=== PATIENT | female | born 1955 | race Caucasian/White ===

== ENCOUNTER → 2020-04-27 18:01 | Outpatient (CLI) | payer OTHER, SELFPAY ==
--- NOTE | ~2020-04-27 | MM_ITS ---
EXAMINATION: MM screening april BI w rosi HISTORY: Screening mammogram TECHNIQUE: Craniocaudal and mediolateral oblique 3-D tomosynthesis images were obtained and synthetic 2-D images were generated. CAD analysis was submitted and interpreted. COMPARISON: 03/16/2019, 02/01/2018 and 12/26/2016 bilateral digital screening mammogram examinations BREAST PARENCHYMAL COMPOSITION: The breasts are heterogeneously dense, which may obscure small masses . FINDINGS: Possible developing densities in the lower right breast on MLO view. Diagnostic right mammo gram is recommended, with ultrasound if required. Otherwise there is no evidence of suspicious mass, calcification, or architectural distortion to sug gest malignancy in either breast. There has been no other suspicious interval change. IMPRESSION: 1. Possible developing densities in the lower right breast on MLO view 2. Diagnostic right mammogram is recommended, with ultrasound if required BI-RADS Category 0: Incomplete: Needs additional imaging evaluation. Reviewed, dictated and finalized at location A. EKEEPING WORKER
== END ==
PROVIDERS: PCP Internal Medicine Infectious Disease; Visit Provider Internal Medicine Infectious Disease
DX: Z12.31 Encounter for screening mammogram for malignant neoplasm of breast (principal); R92.8 Other abnormal and inconclusive findings on diagnostic imaging of breast
CPT/HCPCS: 77063; 77067

== ENCOUNTER 2021-11-28 08:57 | Outpatient (CLI) | payer MEDICARE, OTHER, SELFPAY ==
--- NOTE | 2021-11-28 | EST_ITS ---
Patient Info Name: Wendy Lew Age: 66 years : 1955 Gender: Female Ht: 61 in Wt: 131 lbs BSA: 1.61 m2 HR: 149 bpm BP: 174 / 91 mmHg Technical Quality: Good Exam Date: 11/28/2021 9:54 AM Exam Location: [facility] Pulmonary Exam Room: STRESS LAB Patient Status: Outpatient Admit Date: 11/28/2021 Staff Ordering Physician: EmiAamir MD Ice Plant Operator: Nettie Walsh RDCS Attending Provider: MarryAamir MD Exercise Technologist: Kallie Dai CT Nurse: STEPHANIE BARRAZA Exam Type: CA stress echo Study Info Treadmill exercise stress echocardiogram is performed. Summary 1. Normal sinus rhythm - normal ECG. 2. Small nondiagnostic Q-waves are present. 3. No abnormal ST/T wave changes with exercise. 4. Resting left ventricular dimension and systolic contractility are normal. 5. All segments become appropriately hyperdynamic and response to exercise no ischemic wall motion abnormalities seen. Protocol: Bull Stress ECG Details Stage: REST Duration (min): 0 min : 56 sec Speed (mph): 0.0 Grade (%): 0 HR (bpm): 73 SBP (mmHg): 111 DBP (mmHg): 79 METS: --- Stage: REST Duration (min): 28 min : 3 sec Speed (mph): 0.0 Grade (%): 0 HR (bpm): 77 SBP (mmHg): 111 DBP (mmHg): 79 METS: --- Stage: STAGE 1 Duration (min): 1 min : 0 sec Speed (mph): 1.7 Grade (%): 10 HR (bpm): 108 SBP (mmHg): 111 DBP (mmHg): 79 METS: --- Stage: STAGE 1 Duration (min): 2 min : 0 sec Speed (mph): 1.7 Grade (%): 10 HR (bpm): 108 SBP (mmHg): 111 DBP (mmHg): 79 METS: --- Stage: STAGE 1 Duration (min): 3 min : 0 sec Speed (mph): 1.7 Grade (%): 10 HR (bpm): 110 SBP (mmHg): 136 DBP (mmHg): 88 METS: --- Stage: STAGE 2 Duration (min): 1 min : 0 sec Speed (mph): 2.5 Grade (%): 12 HR (bpm): 117 SBP (mmHg): 136 DBP (mmHg): 88 METS: --- Stage: STAGE 2 Duration (min): 2 min : 0 sec Speed (mph): 2.5 Grade (%): 12 HR (bpm): 119 SBP (mmHg): 171 DBP (mmHg): 85 METS: --- Stage: STAGE 2 Duration (min): 3 min : 0 sec Speed (mph): 2.5 Grade (%): 12 HR (bpm): 129 SBP (mmHg): 171 DBP (mmHg): 85 METS: --- Stage: STAGE 3 Duration (min): 1 min : 0 sec Speed (mph): 3.4 Grade (%): 14 HR (bpm): 133 SBP (mmHg): 237 DBP (mmHg): 85 METS: --- Stage: STAGE 3 Duration (min): 2 min : 0 sec Speed (mph): 3.4 Grade (%): 14 HR (bpm): 136 SBP (mmHg): 174 DBP (mmHg): 91 METS: --- Stage: STAGE 3 Duration (min): 3 min : 0 sec Speed (mph): 3.4 Grade (%): 14 HR (bpm): 136 SBP (mmHg): 172 DBP (mmHg): 94 METS: --- Stage: STAGE 4 Duration (min): 1 min : 0 sec Speed (mph): 4.2 Grade (%): 16 HR (bpm): 147 SBP (mmHg): 172 DBP (mmHg): 94 METS: ---
== END 2021-11-28 08:58 | disposition home or self-care (01) ==
LOC: ANHCARD 09:00
PROVIDERS: PCP Internal Medicine Infectious Disease; Visit Provider Internal Medicine Infectious Disease
DX: R94.31 Abnormal electrocardiogram [ECG] [EKG] (principal)
CPT/HCPCS: 93351

== ENCOUNTER 2022-02-13 14:42 | Outpatient (CLI) | payer MEDICARE, SELFPAY ==
--- NOTE | ~2022-02-13 | DEXA_ITS ---
Bone Density Report Name: ROSARIO ROSADO Age: 66 Sex: Female Ethnicity: White Date of : 1955 Indication: postmenopausal; screening for osteoporosis; cancer; hysterectomy; Referring Provider: CRISELDA, LEIGH Arnold Study: Bone densitometry was performed. Exam Date: February 13, 2022 Accession number: [id number] Bone Density: Region BMD T-score Z-score Classification AP Spine(L1-L4) 0.885 -1.5 0.3 Osteopenia Femoral Neck (Left) 0.736 -1.0 0.5 Normal Total Hip (Left) 0.850 -0.8 0.5 Normal Femoral Neck (Right) 0.752 -0.9 0.7 Normal Total Hip (Right) 0.881 -0.5 0.7 Normal Total Hip Mean 0.865 -0.7 0.6 Normal World Health Organization criteria for BMD impression classify patients as: Normal (T-score at or above -1.0), Osteopenia (T-score between -1.0 and -2.5), or Osteoporosis (T-score at or below -2.5). 10-year Fracture Risk(1): Major Osteoporotic Fracture 8.2% Hip Fracture 0.6% Reported Risk Factors: [place] (), Neck BMD=0.736, BMI=24.9 (1) FRAX(R) Version 3.08. Fracture probability calculated for an untreated patient. Fracture probability may be lower if the patient has received treatment. Clinical Information Provided by Patient: Has used the following medications: Calcium Has the following medical conditions: Cancer, Hysterectomy Patient maximum height was 61 Menopause Age: 51 Drinks caffeinated beverages Onset of menses at age 17 Number of children 2 Impression: The patient has low bone mass, based on the Total Spine T-score. The patient has an estimated ten-year risk of hip fracture of 0.6% and an estimated ten-year risk of major fracture of 8.2%, based on the WHO FRAX algorithm. Discussion: BONE DENSITY IS LOW AT ONE OR MORE SKELETAL SITES. This patient's lowest T-score is low at one or more skeletal sites. It meets the World Health Organization's (WHO) criteria for ?low bone mass? (T-score between -1.0 and -2.5). The patient's 10-year risk of fracture as calculated by FRAX is less than the threshold where pharmacological therapy is recommended by the National Osteoporosis Foundation (NOF). However, all treatment decisions require clinical judgment and consideration of individual patient factors, including patient preferences, comorbidities, previous drug use, risk factors not captured in the FRAX model (e.g., frailty, falls, vitamin D deficiency, increased bone turnover, interval significant decline in bone density) and possible under or overestimation of fracture risk by FRAX. The patient should follow a healthful lifestyle (good nutrition with adequate calcium and vitamin D, and appropriate weight-bearing exercise). Follow-Up: Consider repeating this study in 2 to 3 years to reassess this patient's status, or sooner if there is some new clinical i
== END 2022-02-13 14:43 | disposition home or self-care (01) ==
PROVIDERS: PCP Internal Medicine Infectious Disease; Visit Provider Internal Medicine Infectious Disease
DX: Z78.0 Asymptomatic menopausal state (principal); M85.88 Other specified disorders of bone density and structure, other site
CPT/HCPCS: 77080

== ENCOUNTER 2024-08-15 13:50 | Outpatient (CLI) | payer MEDICARE, SELFPAY ==
--- NOTE | ~2024-08-15 | DEXA_ITS ---
Bone Density Report Name: ROSARIO ROSADO Age: 69 Sex: Female Ethnicity: White Date of : 1955 Indication: osteopenia; cancer; hysterectomy; Referring Provider: CRISELDA, LEIGH Arnold Study: Bone densitometry was performed. Exam Date: August 15, 2024 Accession number: [id number] Bone Density: Region BMD T-score Z-score Classification AP Spine(L1-L4) 0.888 -1.4 0.5 Osteopenia Femoral Neck (Left) 0.739 -1.0 0.7 Normal Total Hip (Left) 0.823 -1.0 0.4 Normal Femoral Neck (Right) 0.727 -1.1 0.6 Osteopenia Total Hip (Right) 0.872 -0.6 0.8 Normal Total Hip Mean 0.848 -0.8 0.6 Normal World Health Organization criteria for BMD impression classify patients as: Normal (T-score at or above -1.0), Osteopenia (T-score between -1.0 and -2.5), or Osteoporosis (T-score at or below -2.5). 10-year Fracture Risk(1): Major Osteoporotic Fracture 8.8% Hip Fracture 0.8% Reported Risk Factors: [place] (), Neck BMD=0.727, BMI=26.4 (1) FRAX(R) Version 3.08. Fracture probability calculated for an untreated patient. Fracture probability may be lower if the patient has received treatment. Previous Exams: Region Exam Age BMD T-score BMD Change BMD Change Date g/cm2 vs Baseline vs Previous AP Spine (L1-L4) 08/15/2024 69 0.888 -1.4 0.002 (0.3%) 0.002 (0.3%) 02/13/2022 66 0.885 -1.5 Total Hip(Left) 08/15/2024 69 0.823 -1.0 -0.027 (-3.2%) -0.027 (-3.2%) 02/13/2022 66 0.850 -0.8 Total Hip(Right) 08/15/2024 69 0.872 -0.6 -0.008 (-0.9%) -0.008 (-0.9%) 02/13/2022 66 0.881 -0.5 *Denotes significance at 95% confidence level, LSC for AP Spine = 0.022 g/cm2, LSC for Total Hip = 0.027 g/cm2 Clinical Information Provided by Patient: Has used the following medications: Calcium Has the following medical conditions: Cancer, Hysterectomy Patient maximum height was 61.0 Menopause Age: 51 Drinks caffeinated beverages Onset of menses at age 17 Number of children 2 Impression: The patient has low bone mass, based on the Total Spine T-score. The patient has an estimated ten-year risk of hip fracture of 0.8% and an estimated ten-year risk of major fracture of 8.8%, based on the WHO FRAX algorithm. No significant bone loss was observed. Discussion: BONE DENSITY IS LOW AT ONE OR MORE SKELETAL SITES. This patient's lowest T-score is low at one or more skeletal sites. It meets the World Health Organization's (WHO) criteria for ?low bone mass? (T-score between -1.0 and -2.5). The patient's 10-year risk of fracture as calculated by FRAX is less than the threshold where pharmacological therapy is recommended by the National Osteoporosis Foundation (NOF). However, all treatment decisions require clinical judgment and consideration of individual patient factors, including patient preferences, comorbidities, previous drug use, risk factors not captured in the FRAX model (e.g., frailty, falls, vitamin D deficiency, increased bone turnover, interval significant decline in bone density) and possible under or overestimation of fracture risk by FRAX. The patient should follow a healthful lifestyle (good nutrition with adequate calcium and vitamin D, and appropriate weight-bearing exercise). Follow-Up: Consider repeating this study in 2 to 3 years to reassess this patient's status, or sooner if there is some new clinical indication. Reported by: KEVIN on 08/15/2024 2:27:00 PM. Reviewed, dictated and finalized at location A. FATMATA
--- OUTSIDE RECORDS SUMMARY | 2024-08-15 16:01 | XMS_ITS | Encounter Summary ---
Author Organization [facility] Address [address] [place] [address] Phone Care Team Providers Care Informatics Consultant Name Role Phone Aamir Middleton MD Primary Care Provider [phone] Hilda Almonte MD Unavailable [phone] Cornelio Alfaro MD Unavailable [phone] Issa Valencia MD Unavailable [phone] Rod Pablo MD Unavailable Laron Casey MD Unavailable Landry Conklin MD Unavailable [phone] Mamta Rondon MD Unavailable [phone] Lizeth Hampton MD Unavailable [phone] Encounter Details Date Type Department Care Team (Late st Contact Info) Description 04/27/2020 Orders Only [facility] [address] [place] [address] Scanning, Provider Social History Tobacco Use Types Packs/Day Years Used Date Smoking Tobacco: Former Cigarettes 0.1 15 1 969 - 1983 Smokeless Tobacco: Never Alcohol Use Standard Drinks/Week Comments Yes 0 (1 standard drink = 0.6 oz pur e alcohol) daily 1 shot PHQ-2 Answer Date Recorded PHQ-2 Total Score (If total score is 3 or more points, staff should administer the PHQ-9) 0 10/28/2019 Comments No Sex and Gender Information Value Date Recorded Sex Assigned at Not on file Legal Sex Female 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 Gender Identity Not on file Sexual Orientation Not on file 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 fi le documented as of this encounter Plan of Treatment Not on file documented as of this encounter Procedures Procedure Name Priority Date/Time Associated Diagnosis Comments SCAN - RADIOLOGY/IMAGING 04/27/2020 documented in this encounter Results * SCAN - RADIOLOGY/IMAGING (04/27/2020) Anatomical Region Laterality Modality Other us Provider Scanning Final Result documented in this encounter Visit Diagnoses Not on filedocumented in this encounter Additional Health Concerns Infection Onset Date Last Indicated Resolved Time COVID: Suspected 10/02/2022 10/02/2022 10/03/2022 3:05 AM CDT documented as of this encounter Care Teams Informatics Consultant Relationship Specialty Start Date End Date Aamir Middleton MD [address] [place] [phone] PCP - General 09/05/16 Hilda Almonte MD [address], [place] [address] Consulting Physician Obstetrics and Gynecology 01/06/13 Cornelio Alfaro MD [address], [place] [address] Consulting Physician Urology 01/28/20 08/24/23 Issa Valencia MD [address], [place] [address] Consulting Physician Urology 04/09/20 Rod Pablo MD [address] [place] [address] Consulting Physician Gastroenterology 05/21/20 Laron Casey MD [address] [place] [address] Consulting Physician Sleep Medicine 12/06/20 Landry Conklin MD [address] [facility] [address] [place] [address] Consulting Physician Ophthalmology 10/30/21 Mamta Rondon MD [address] [place] [address] Consulting Physician Dermatology 02/12/23 Lizeth Hampton MD [address] [facility] [place] [address] Consulting Physician Urology 05/22/23 documented as of this encounter
--- OUTSIDE RECORDS SUMMARY | 2024-08-15 16:01 | XMS_ITS | Patient Health Summary ---
Author Organization [facility] Address [address] [facility] [place] [address] Care Team Providers Care Magnetic Resonance Imaging Coordinator Name Role Phone Aamir Middleton MD Primary Care Provider [phone] Note from [facility],non-owned Affiliates and Associated Physician Practices is amultiple site organization consisting of ambulatory clinics and hospital sitesin [place], [place], [place] and [place]. This disclosure is being madepursuant to the Care Everywhere program and may not contain all information available regarding this patient. Last updated 18.[facility] Allergies * Penicillin G(Rash) -Medium Criticality Medications * Be aware that medications may not be up to date on this document. Alwaysverify current medications with the patient. * buPROPion (WELLBUTRIN) 75 MG tablet(Started 12/07/2017) * citalopram (CELEXA) 10 MG tablet(Started 12/07/2017) * ENGERIX-B 20 MCG/ML injection(Started 11/11/2017) ADM 1ML IM UTD * SYNTHROID 88 MCG tablet(Started 12/07/2017) * metFORMIN (GLUCOPHAGE) 500 MG tablet(Started 12/02/2017) Take 500 mg by mouth * metFORMIN (GLUCOPHAGE) 1000 MG tablet(Started 11/24/2017) Take 1,000 mg by mouth * omeprazole (PRILOSEC) 20 MG capsule(Started 12/07/2017) * rosuvastatin (CRESTOR) 10 MG tablet(Started 11/15/2017) * SUMAtriptan (IMITREX) 100 MG tablet(Started 01/02/2018) * lifitegrast (XIIDRA) 5 % opthalmic solution(Started 07/30/2017) 1 drop Active Problems Problem Noted Date Diagnosed Date Sensorineural hearing loss (SNHL) of left ear Dysfunction of left eustachian tube 01/25/2018 Actinic keratosis 07/27/2015 Inflamed seborrheic keratosis 07/27/2015 Skin benign neoplasm 07/27/2015 Gastroesophageal reflux disease with esophagitis 06/27/2015 Bernstein's esophagus without dysplasia 06/15/2015 Iron deficiency anemia 09/20/2014 Urinary retention 12/21/2012 Hypersomnolence 10/06/2012 Migraine without aura or status migrainosus 05/08 Psoriasis 05/02/2012 Mixed hyperlipidemia 04/26/2012 Type 2 diabetes mellitus without complication Atypical migraine 03/22/2010 Anaclitic depression 02/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 Anxiety 02/13/2010 Disease of thyroid gland 02/13/2010 Acquired hypothyroidism 01/07/2008 Persistent mood disorder 01/15/1995 Chronic sinusitis 01/15/1994 History of splenectomy 01/07/1984 Immunizations * HEP A VACCINE, ADULT(Given 06/08/2002, 12/06/2001) * HEP B VACCINE, PED/ADOL(Given 06/08/1979) * INFLUENZA VACCINE(Given 03/23/2017) * MENINGOCOCAL MENINGITIS(Given 12/17/2010) * MENINGOCOCCAL CONJUGATE (MCV4P)(Given 02/27/2011) * PNEUMOCOCCAL PPSV23(Given 12/17/2010, 08/07/2000) * Pneumococcal Pcv13 Conj(Given 04/12/2015) * TD VACCINE(Given 12/13/2001) * TDAP (7yrs+)(Given 01/28/2012) * ZOSTER VACCINE, LIVE(Given 06/08/2008) Social History Tobacco Use Types Packs/Day Years Used Date Smoking Tobacco: Never Smokeless Tobacco: Never Alcohol Use Standard Drinks/Week Comments Yes 0 (1 standard drink = 0.6 oz pur e alcohol) Sex and Gender Information Value Date Recorded Sex Assigned at Not on file Gender Identity Not on file Sexual Orientation Not on file Last Filed Vital Signs Vital Sign Reading Time Taken Comments Blood Pressure 122/82 01/24/2019 1:54 PM CDT Pulse 78 01/24/2019 1:54 PM CDT Temperature - - Respiratory Rate - - Oxygen Saturation - - Inhaled Oxygen Concentration - - Weight 65.8 kg (145 lb) 01/24/2019 1:54 PM CDT Height 154.9 cm (5' 1 ) 01/24/2019 1:54 PM CDT Body Mass Index 27.4 01/24/2019 1:54 PM CDT Procedures * DERMATOPATHOLOGY(Performed 10/20/2023) * DERMATOPATHOLOGY(Performed 09/06/2020) * DERMATOPATHOLOGY(Performed 10/21/2018) Results * DERMATOPATHOLOGY (10/20/2023 1:39 PM CDT) Only the most recent of3 resultswithin the time period is included. Case Report Dermatopathology Report Case: [id number] Authorizing Provider: Mamta Rondon MD Collected: 10/20/2023 01:39 PM Ordering Location: [facility] - Received: 10/21/2023 12:48 PM DermPath Lab Pathologist: Radha Valencia MD Specimen: Skin, left upper arm 11:39 AM CDT DERMATOPATHOLOGY LABORATORY Final Diagnosis Specimen A. SKIN, left upper arm: LICHEN PLANUS-LIKE KERATOSIS (BENIGN LICHENOID KERATOSIS) (L82.1) 11:39 AM CDT DERMATOPATHOLOGY LABORATORY Clinical History R/o NMSC 11:39 AM CDT DERMATOPATHOLOGY LABORATORY Gross Description Specimen A: Received is one formalin filled container labeled with the patient's name and designated left upper arm. The specimen consists of a shave biopsy measuring 9x6x1 mm. Jar 0. 11:39 AM CDT DERMATOPATHOLOGY LABORATORY Microscopic Description Specimen A. SKIN, left upper arm: The epidermis is mildly acanthotic. There is a lichenoid infiltrate with vacuolar changes of basilar keratinocytes and scattered necrotic keratinocytes. 11:39 AM CDT DERMATOPATHOLOGY LABORATORY Disclaimer An external and internal positive and negative controls are appropriate for the histochemical, immunohistochemical and immunofluorescence stain(s) in this case (if any), except where stated explicitly. The performance characteristics of the stain(s) cited in this report were developed and its performance characteristic determined by the Dermatopathology Laboratory at [facility], directed by Dr. Ramila Ramos. These tests need not be, and therefore are not, approved by the [place] Food and Drug Administration. The tests are used for clinical purposes. Billing Codes Specimen Charges Stain Charges 75718 1 4 11:39 AM CDT DERMATOPATHOLOGY LABORATORY Embedded Images 11:39 AM CDT DERMATOPATHOLOGY LABORATORY Pathology/Cytolo gy TISSUE SPECIMEN FROM SKIN / Unknown 10/20/2023 1:39 PM CDT 10/21/2023 12:48 PM CDT Mamta Rondon MD LAB - PATHOLOGY/CYT OLOGY ORDERABLES DERMATOPATHOLOGY LABORATORY [facility] - Department of Dermatology [address], [address] [phone] Care Teams Magnetic Resonance Imaging Coordinator Relationship Specialty Start Date End Date Aamir Middleton MD [address] [place] [phone] PCP - General 12/23/17
--- OUTSIDE RECORDS SUMMARY | 2024-08-15 16:01 | XMS_ITS | Encounter Summary ---
Author Organization [facility] Address [address] [place] [address] Care Team Providers Care Casing Grader Name Role Phone Aamir Middleton MD Primary Care Provider [phone] Encounter Details Date Type Department Care Team (Late st Contact Info) Description 10/20/2023 Lab Requisition [facility] - DermPath Lab [address] [facility], [facility] [place] [phone] Mamta Rondon MD [address] [facility] [address] [place] [address] Social History Tobacco Use Types Packs/Day Years Used Date Smoking Tobacco: Never Smokeless Tobacco: Never Alcohol Use Standard Drinks/Week Comments Yes 0 (1 standard drink = 0.6 oz pur e alcohol) Sex and Gender Information Value Date Recorded Sex Assigned at Not on file Gender Identity Not on file Sexual Orientation Not on file documented as of this encounter Plan of Treatment Not on file documented as of this encounter Procedures Procedure Name Priority Date/Time Associated Diagnosis Comments DERMATOPATHOLOGY Routine 10/20/2023 1:39 PM CDT documented in this encounter Results * DERMATOPATHOLOGY (10/20/2023 1:39 PM CDT) Case Report Dermatopathology Report Case: [id number] Authorizing Provider: Mamta Rondon MD Collected: 10/20/2023 01:39 PM Ordering Location: [facility] - Received: 10/21/2023 12:48 PM [...] characteristic determined by the Dermatopathology Laboratory at [facility], directed by Dr. Ramila Ramos. These tests need not be, and therefore are not, approved by the [place] Food and Drug Administration. The tests are used for clinical purposes. Billing Codes Specimen Charges Stain Charges 98662 1 11:39 AM CDT DERMATOPATHOLOGY LABORATORY Embedded Images 11:39 AM CDT DERMATOPATHOLOGY LABORATORY Pathology/Cytolo gy TISSUE SPECIMEN FROM SKIN / Unknown 10/20/2023 1:39 PM CDT 10/21/2023 12:48 PM CDT Mamta Rondon MD LAB - PATHOLOGY/CYT OLOGY ORDERABLES DERMATOPATHOLOGY LABORATORY [facility] - Department of Dermatology [address] [phone] documented in this encounter Visit Diagnoses Not on filedocumented in this encounter Care Teams Casing Grader Relationship Specialty Start Date End Date Aamir Middleton MD [address] [place] [phone] PCP - General 12/23/17 documented as of this encounter
--- OUTSIDE RECORDS SUMMARY | 2024-08-15 16:01 | XMS_ITS | Referral Summary ---
Author Organization [facility] Address [address] [place] [address] Care Team Providers Care Veterans' Counselor Name Role Phone Aamir Middleton MD Primary Care Provider [phone] Source Comments [facility],non-owned Affiliates and Associated Physician Practices is amultiple site organization consisting of ambulatory clinics and hospital sitesin [place], [place], [place] and [place]. This disclosure is being madepursuant to the Care Everywhere program and may not contain all information available regarding this patient. Last updated 18.[facility] Allergies Active Allergy Reactions Criticality Noted Date Comments Penicillin G Rash Medium Reaction: rash, Medications * Be aware that medications may not be up to date on this document. Alwaysverify current medications with the patient. Medication Sig Dispensed Refills Start Date End Date Status buPROPion (WELLBUTRIN) 75 MG tablet 12/07/2017 Active citalopram (CELEXA) 10 MG tablet 12/07/2017 Active ENGERIX-B 20 MCG/ML injection ADM 1ML IM UTD 0 11/11/2017 Active SYNTHROID 88 MCG tablet 12/07/2017 A ctive metFORMIN (GLUCOPHAGE) 500 MG tablet Take 500 mg by mouth 12/02/2017 Active metFORMIN (GLUCOPHAGE) 1000 MG tablet Take 1,000 mg by mouth 11/24/2017 Active omeprazole (PRILOSEC) 20 MG capsule 12/07/2017 Active rosuvastatin (CRESTOR) 10 MG tablet 11/15/2017 Active SUMAtriptan (IMITREX) 100 MG tablet 01/02/2018 Active lifitegrast (XIIDRA) 5 % opthalmic solution 1 drop 07/30/2017 Acti ve Active Problems Problem Noted Date Diagnosed Date Sensorineural hearing loss (SNHL) of left ear Dysfunction of left eustachian tube 01/25/2018 Actinic keratosis 07/27/2015 Inflamed seborrheic keratosis 07/27/2015 Skin benign neoplasm 07/27/2015 Gastroesophageal reflux disease with esophagitis 06/27/2015 Overview (01/25/2018): Overview: GERD Last Assessment & Plan: She is on omeprazole for GE reflux and Bernstein's esophagus. She still gets a little bit of heartburn, mostly when she goes out to eat with her . She wondered if taking an extra dose would be helpful. I think that would be fine, or she could take an H2 lavern on a p.r.n. basis. She has a follow-up with her GI doctor in a year or so. She denies having any dysphagia. Bernstein's esophagus without dysplasia 06/15/2015 Overview (01/25/2018): Overview: Barretts esophagitis Last Assessment & Plan: Symptoms are well controlled on omeprazole taken once a day. She reports no new symptoms of concern. Follow-up endoscopy is planned for 2019 with her GI doctor. Iron deficiency anemia 09/20/2014 Overview (01/25/2018): Overview: Iron deficiency anemia Urinary retention 12/21/2012 Hypersomnolence 10/06/2012 Overview (01/25/2018): Overview: Getting worse over time. says she snores. Wakes up with a headache. Scores 18 on [place] scale. Last Assessment & Plan: Her says she snores. She has unrestful sleep, and wakes up with a headache. She scores 18 on the [place] scale. We will set her up for a sleep study. Migraine without aura or status migrainosus 05/08 Overview (01/25/2018): Overview: Migraine Last Assessment & Plan: Her morning headaches respond to Imitrex suggesting a migraine component. We gave her a refill. Continue to monitor. Psoriasis 05/02/2012 Overview (01/25/2018): Overview: Psoriasis Mixed hyperlipidemia 04/26/2012 Overview (01/25/2018): Overview: Hyperlipidemia, on statin. Last Assessment & Plan: She had a bit of a rough start with the Crestor, but is now tolerating it well. Continue same. We will check labs periodically. Type 2 diabetes mellitus without complication Overview (01/25/2018): Overview: Diabetes mellitus Last Assessment & Plan: Blood sugar on a nonfasting sample recently was a little under 200 mg/dL, but normally she thinks her fasting blood sugar is lower. Hemoglobin A1c is usually around 6.3. We will check a follow-up value. We are getting her a glucometer to check blood sugars at home. She will be seeing a nurse educator. Follow-up here in six months. Atypical migraine 03/22/2010 Anaclitic depression 02/13/2010 Anxiety 02/13/2010 Disease of thyroid gland 02/13/2010 Acquired hypothyroidism 01/07/2008 Overview (01/25/2018): Overview: Hypothyroid Last Assessment & Plan: She is on a stable dose of replacement. She checks [facility] labs at [facility] periodically. Results are forwarded to me. We will continue to monitor and see her back in six months. Persistent mood disorder 01/15/1995 Overview (01/25/2018): Overview: Mood disorder Last Assessment & Plan: Her depressive symptoms are much better controlled on the current combination. Continue same. Follow up in six months. Chronic sinusitis 01/15/1994 Overview (01/25/2018): Overview: Chronic rhinosinusitis Last Assessment & Plan: Symptoms are not that well controlled on Flonase alone, so we will add Astelin to her regimen. We will check in with her at her next appointment to see how this is working. History of splenectomy 01/07/1984 Overview (01/25/2018): Overview: H/O splenectomy Immunizations Name Administration Dates Next Due HEP A VACCINE, ADULT 06/08/2002,12/06/2001 HEP B VACCINE, PED/ADOL 06/08/1979 INFLUENZA VACCINE 03/23/2017 MENINGOCOCAL MENINGITIS 12/17/2010 MENINGOCOCCAL CONJUGATE (MCV4P) 02/27/2011 PNEUMOCOCCAL PPSV23 12/17/2010,08/07/2000 Pneumococcal Pcv13 Conj 04/12/2015 TD VACCINE 12/13/2001 TDAP (7yrs+) 01/28/2012 ZOSTER VACCINE, LIVE 06/08/2008 Social History Tobacco Use Types Packs/Day Years [...] Mass Index 27.4 01/24/2019 1:54 PM CDT Plan of Treatment Not on file Care Teams Veterans' Counselor Relationship Specialty Start Date End Date Aamir Middleton MD [address] [place] [phone] PCP - General 12/23/17
--- OUTSIDE RECORDS SUMMARY | 2024-08-15 16:01 | XMS_ITS | Clinical Summary ---
Author Organization [facility] Address [address] [place] [address] Care Team Providers Care Hot Air Furnace Installer Repairer Name Role Phone Aamir Middleton MD Primary Care Provider [phone] Source Comments [facility],non-owned Affiliates and Associated Physician Practices is amultiple site organization consisting of ambulatory clinics and hospital sitesin [place], [place], [place] and [place]. This disclosure is being madepursuant to the Care Everywhere program and may not contain all information available regarding this patient. Last updated 18.[facility] Allergies Active Allergy Reactions Criticality Noted Date [...] up with a headache. Scores 18 on [place] scale. Last Assessment & Plan: Her says she snores. She has unrestful sleep, and wakes up with a headache. She scores 18 on the [place] scale. We will set her up for [...] She checks her own labs at the [facility] periodically. Results are forwarded to me. [...] 01/24/2019 1:54 PM CDT Plan of Treatment Health Maintenance Due Date Last Done Comments BONE DENSITY TESTING 1955 COLOGUARD (AGES 45-75) - COL ON CA SCREENING 1956 COLON MONITORING 1956 COLONOSCOPY - COLON CA SCREENING 1956 CT COLONOGRAPHY - COLON CA SCREENING 1955 Colorectal Cancer Screening 1956 FIT - COLON CA SCREENING 1956 FLEX SIG - COLON CA SCREENING 1956 MAMMOGRAM 1956 HEPATITIS C SCREENING 08/07/1974 DIABETES-SERUM CREATININE 1974 ZOSTER VACCINE (2 of 3) 08/03/2008 06/08/2008 DIABETES RETINOPATHY SCREENING 01/24/2019 DIABETES-FOOT EXAM WITH MONOFILAMENT 01/24/2019 DIABETES-HGB A1C 01/24/2019 PNEUMOCOCCAL VACCINE 50+ (3 of 3 - PCV20 or PCV21) 04/12/2020 04/12/2015, 12/17/2010, 08/07/2000 DTAP/TDAP/TD VACCINES (3 - T d or Tdap) 01/27/2022 01/28/2012, 12/13/2001 COVID-19 VACCINE (1 - 2023-2 5 season) 2024 INFLUENZA VACCINE (#1) 2024 9, 03/09/2018, 03/23/2017 DEPRESSION SCREENING 06/08/2024 DIABETES - URINE PROTEIN SCREENING 06/08/2024 MEDICARE AWV CALENDAR YEAR 2024 Respiratory Syncytial Virus (RSV) Vaccine Pt: or over 60 yrs (1 - 1-dose 75+ series) 08/12/2031 HEPATITIS B VACCINE Aged Out 06/08/1979 No longe r eligible based on patient's age to complete this topic MENINGOCOCCAL VACCINE Aged Out 02/27/2011 , 12/17/2010 No longer eligible based on patient's age to complete this topic HIB VACCINE Aged Out No longer eligi ble based on patient's age to complete this topic HPV VACCINE Aged Out No longer eligi ble based on patient's age to complete this topic MENINGOCOCCAL (Group B) VACCINE Aged Out No longer eligible b ased on patient's age to complete this topic Care Teams Hot Air Furnace Installer Repairer Relationship Specialty Start Date End Date Aamir Middleton MD [address] [place] [phone] PCP - General 12/23/17
--- OUTSIDE RECORDS SUMMARY | 2024-08-15 16:01 | XMS_ITS | Encounter Summary ---
Author Organization [facility] Address [address] [place] [address] Phone Care Team Providers Care Security Coordinator Name Role Phone Aamir Middleton MD Primary Care Provider [phone] Hilda Almonte MD Unavailable [phone] Cornelio Alfaro MD Unavailable [phone] Issa Valencia MD Unavailable Rod Pablo MD Unavailable [phone] Laron Casey MD Unavailable Landry Conklin MD Unavailable Mamta Rondon MD Unavailable [phone] Lizeth Hampton MD Unavailable [phone] Encounter Details Date Type Department Care Team (Late st Contact Info) Description 11/28/2021 Orders Only [facility] [address] [place] [address] Aamir Middleton MD [address] [place] [address] Social History Tobacco Use Types Packs/Day Years Used Date Smoking Tobacco: Former Cigarettes 1 15 0 12/06/1974 - 12/07/1983 Smokeless Tobacco: Never Alcohol Use Standard Drinks/Week Comments Yes 0 (1 standard drink = 0.6 oz pur e alcohol) daily 1 shot AUDIT-C Answer Date Recorded Q1: How often do you have a drink containing alc ohol? Never 09/12/2020 Average Number of Drinks Not on file 021 Q3: How often do you have si x or more drinks on one occasion? 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 fi le documented as of this encounter Plan of Treatment Not on file documented as of this encounter Procedures Procedure Name Priority Date/Time Associated Diagnosis Comments CARDIOLOGY DOCUMENT SCAN 11/28/2021 documented in this encounter Results * CARDIOLOGY DOCUMENT SCAN (11/28/2021) Anatomical Region Laterality Modality Other us Aamir Middleton MD CV CARDIAC SERVICES PROCEDURE S Final Result documented in this encounter Visit Diagnoses Not on filedocumented in this encounter Additional Health Concerns Infection Onset Date Last Indicated Resolved Time COVID: Suspected 10/02/2022 10/02/2022 10/03/2022 3:05 AM CDT documented as of this encounter Care Teams Security Coordinator Relationship Specialty Start Date End Date Aamir Middleton MD [address] [place] [id number] PCP - General 09/05/16 Hilda Almonte MD [address], [place] [address] Consulting Physician Obstetrics and Gynecology 01/06/13 Cornelio Alfaro MD [address], [place] [id number] Consulting Physician Urology 01/28/20 08/24/23 Issa Valencia MD [address] [place] [address] Consulting Physician Urology 04/09/20 Rod Pablo MD [address] [place] [address] Consulting Physician Gastroenterology 05/21/20 Laron Casey MD [address] [place] [address] Consulting Physician Sleep Medicine 12/06/20 Landry Conklin MD [address] [place] [address] Consulting Physician Ophthalmology 10/30/21 Mamta Rondon MD [address] [place] [address] Consulting Physician Dermatology 02/12/23 Lizeth Hampton MD [address] [facility] [place] [address] Consulting Physician Urology 05/22/23 documented as of this encounter
--- OUTSIDE RECORDS SUMMARY | 2024-08-15 16:01 | XMS_ITS | Continuity of Care Document ---
Author Organization [facility] Address [address] [place] [address] Phone Care Team Providers Care Skid Man Name Role Phone Warren Soliz MD Unavailable Unavailable Allergies, Adverse Reactions, Alerts Substance Reaction Status Criticality Penicillins Unknown Active No Information Penicillins Active No Information Medications Medication Instructions Dosage Effective Dates (start - stop) Status Comments CELEXA (unknown strength) take 1 tablet by oral route every day Not Available - Active SYNTHROID (unknown strength) take 1 tablet by oral route every day Not Available - Active SIMVASTATIN (unknown strength) take 1 tablet by oral route every day in the evening Not Available - Active IMITREX (unknown strength) inject 0.5 milliliter by subcutaneous route once; may be repeated 1 hour after the first dose if headache pain returns or increases in severity; do not exceed 2 doses within 24 hours Not Available - Active RIOMET (unknown strength) take 10 milliliter by oral route 2 times every day with meals Not Available - Active Procedures Procedure Date OFFICE/OUTPATIENT VISIT [facility]NER PREV VISIT NEW AGE 40-64 Advance Directives Directive Yes / No Effective Date File Name No Information Encounters Encounter Description Practice Location Reason(s) For Visit Diagnoses Date Provider Providers Copied on Encounter OFFICE/OUTPA TIENT VISIT [facility], [address] [place], [place] [address], [place], [address], tel:[phone] [facility] [place] Pyriformis syndrome, rightJumper's knee of left side 201 [address] Heydi Kelley. [address] [place] [address], [id number] . tel: [phone] Referring Provider: Aamir Middleton, [address], [place], [address]. tel:[phone] PREV VISIT NEW AGE 40-64 [facility] [address], [place], [address], tel:[phone] [facility] annual visit (chief complaint) Hypothyroidis mDiabetes Mellitus Type 2, Uncomplicated Well Woman / Routine Gold Miner Blasting/PapStress incontinence, femaleMenopau keya Symptoms 3 Eva Garland. [address] [place], [place], [id number] . tel: [phone] Family History Family Member Type Diagnosis Age At Onset Sister Problem (finding) malignant neoplasm of t hyroid Payers Payer name Insurance type Covered green party ID Authoriza tion(s) No Information Social History Type Description Quantity Date Captured Comments Alcohol Use Details Unknown Caffeine Use Details Unknown Tobacco Use Status Smoking Status Former smoker Non-Smoking Tobacco Use Details : No Details Available : No Details Available Sex Female Vital Signs Date / Time: Height Weight BMI Pulse Rate Blood Pressure Temperature Respiratory Rate Body Surface Area Head Circumference Head Circ. Percentile Wt./Grabiel. Percentile BMI percentile Pulse Ox Inhaled Ox 11:07 AM 62.00 in 65.771 kg (145.00 lbs) 26.5 2 kg/m eter (2) 121/93 mm[Hg] Chief Complaint And Reason For Visit No Information Reason For Referral Reason For Referral No Information Plan Of Treatment Date Type Action Status Referral Ordered: RADEX HIP UNI COMPL MINIMUM 2 VIEWS RT ordered History Of Present Illness Encounter Date Complaint History Of Prese nt Illness No Information Functional Status Date Functional Assessmen t No Information Instructions Date Instruction Additional Infor mation Elevate extremity above heart. R elated to Jumper's knee of left side Apply ice as tolerated. Related to Jumper's knee of left side Elevate extremity above heart. R elated to Jumper's knee of left side Apply ice as tolerated. Related to Jumper's knee of left side Discussed options fo r treatment of menopausal symptoms Discussed risk factors of menopa use Assessments Type Assessment Date assessment Pyriformis syndrome, right assessment Jumper's knee of left side Patient Care Teams Name Effective Dates (start - stop) Status Members No Information
--- OUTSIDE RECORDS SUMMARY | 2024-08-15 16:01 | XMS_ITS | Clinical Summary ---
Author Organization [facility] Address [address] [place] [address] Phone Care Team Providers Care Butcher Or Smallgoods Maker Name Role Phone Julia Solares MD Primary Care Provider Unavaila ble Allergies Active Allergy Reactions Criticality Noted Date Comments Codeine Headache Low 11/29/2012 Latex Unknown Low 11/29/2012 Nickel Rash Low 11/22/2012 Penicillins Rash Low 11/22/2012 Medications aspirin (HIPOLITO) 81 mg Oral Tab Take 81 mg by mouth. Active diphenhydrAMINE (BENADRYL) 25 mg Oral tablet Take 25 mg by mouth every 6 hours as needed. Active naproxen sodium (ALEVE) 220 mg Oral Tab Take 220 mg by mouth every 4 hours as needed. Active fluticasone (FLONASE) 50 mcg/spray Both Nostril SpSn Administer 2 Sprays in each nostril daily. Active citalopram (CELEXA) 20 mg Oral tablet Take 20 mg by mouth daily. Active levothyroxine 75 mcg Oral tablet Take 75 mcg by mouth daily tie sawyer. Active omeprazole (PRILOSEC) 20 mg Oral CpDR Take 20 mg by mouth daily. Active simvastatin (ZOCOR) 40 mg Oral tablet Take 40 mg by mouth daily. Active montelukast (SINGULAIR) 10 mg Oral tablet Take 10 mg by mouth daily. Active B2/MAG CIT & OX/FEVERFEW (MIGRELIEF ORAL) Take by mouth 1 time daily as needed. Active metFORMIN (GLUCOPHAGE) 500 mg Oral tablet Take 500 mg by mouth 2 times daily with meals. Active tazarotene (TAZORAC) 0.05 % Topical Crea Apply to affected area daily. Active SUMAtriptan (IMITREX) 25 mg Oral tablet Take 25 mg by mouth every 2 hours as needed. may repeat in 2 hours; max dose 200mg in 24 hours Active estradiol (ESTRACE) 0.01 % (0.1 mg/g) Vaginal Crea Insert vaginally every Thursday, Thursday, and Thursday. 1g vaginally every Thursday and Thursday 42.5 Gram 6 3 Active docusate sodium (COLACE) 100 mg Oral capsule Take 1 Cap by mouth 2 times daily. 60 Cap 6 3 Active PHENAZOPYRIDINE HCL (PYRIDIUM ORAL) Take by mouth. Activ e morphine SR (MS CONTIN) 15 mg Oral tablet Take 1 Tab by mouth every 8 hours. 20 Tab 0 3 Active Active Problems Problem Noted Date Diagnosed Date Sling release-going home 12/21/2012 TVH/repairs, sling/SPT. Abdominal scar revision 11/29/2012 Social History Tobacco Use Types Packs/Day Years Used Date Smoking Tobacco: Former Cigarettes Q uit: 06/08/2004 Smokeless Tobacco: Former Alcohol Use Standard Drinks/Week Comments Yes 0 (1 standard drink = 0.6 oz pur e alcohol) social Comments No Sex and Gender Information Value Date Recorded Sex Assigned at Not on file Legal Sex Female 2:24 PM CDT Gender Identity Not on file Sexual Orientation Not on file Occupation Industry Job Start Date Job End Date Not on file Not on file Not on file Not on file Last Filed Vital Signs Vital Sign Reading Time Taken Comments Blood Pressure 123/80 12/21/2012 3:12 PM CDT Pulse 94 12/21/2012 3:12 PM CDT Temperature 36.4 C (97.6 F) 12/21/2012 3:12 PM CDT Respiratory Rate 18 12/21/2012 3:12 PM CDT Oxygen Saturation 98% 12/21/2012 3:12 PM CDT Inhaled Oxygen Concentration - - Weight 64.9 kg (143 lb 2 oz) 12/21/2012 9:59 AM CDT Height 154.9 cm (5' 1 ) 12/16/2012 4:16 PM CDT Body Mass Index 27.04 12/16/2012 4:16 PM CDT Plan of Treatment Health Maintenance Due Date Last Done Comments DTAP/TDAP/TD VACCINES (1 - Tdap) 08/12/1975 PNEUMOCOCCAL VACCINE 50+ YEARS (1 of 2 - PCV) 08/11/18 76 BREAST CANCER SCREENING 1996 COLORECTAL SCREENING 2001 Colorectal Cancer Screening 2001 FIT-DNA Q 3 years 2001 FIT/FOBT Q 1 year 2001 Flex Sig/CT Colonography Q 5 years 2001 ZOSTER VACCINE (1 of 2) 2006 OSTEOPOROSIS SCREENING 2021 INFLUENZA VACCINE (#1) 2024 RSV VACCINE (60+ or ) (1 - 1-dose 75+ series) 08/12/2031 Medical Devices Implanted Type Area Drop Wire Stringer Device Identifier Shelf Expiration Date Model / Serial / Lot Sling Desara System Eric-Ds01 - [id number] Implanted:Qty: 1 on 11/29/2012 by Hilda Almonte MD at [facility] Sling N/A: Urethra [employer] 08/05/2014 ERIC-DS01 / / [id number] Sling Desara System Eric-Ds01 - [id number] Implanted:Qty: 1 on 11/29/2012 at [facility] Sling N/A: Vagina [employer] 07/09/2014 ERIC-DS01 / / [id number] Other Implanted:(Jose ntity not on file) Explanted:(Jose ntity not on file) Description:right upper toot h Screw Implanted:(Jose ntity not on file) Explanted:(Jose ntity not on file) Description:right great toe Supra Pubic Catheter Implanted:(Jose ntity not on file) Explanted:(Jose ntity not on file) Insurance BS BLUE ACCESS/TRUE BLUE PPO Advance Directives For more information, please contact: [phone] Documents on File Type Date Recorded 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 Advance Directive POA 11/29/2012 8:08 AM Advance Directive Living Will 11/29/2012 8:07 AM Advance Directive Living Will * Full Code (Latest Code Status on File) Date Activated Date Inactivated Comments 12/21/2012 11:28 AM 12/21/2012 5:17 PM * Full Code Date Activated Date Inactivated Comments 12/21/2012 9:21 AM 12/21/2012 11:28 AM * Full Code Date Activated Date Inactivated Comments 11/29/2012 3:51 PM 12/01/2012 7:28 AM * Full Code Date Activated Date Inactivated Comments 11/29/2012 9:30 AM 11/29/2012 3:50 PM * Full Code Date Activated Date Inactivated Comments 11/29/2012 7:51 AM 11/29/2012 9:30 AM Care Teams Butcher Or Smallgoods Maker Relationship Specialty Start Date End Date Julia Solares MD PCP - General Internal Medicine 11/08/12
--- OUTSIDE RECORDS SUMMARY | 2024-08-15 16:01 | XMS_ITS | Encounter Summary ---
Author Organization [facility] Address [address] [place] [address] Care Team Providers Care Loan Examiner Name Role Phone Aamir Middleton MD Primary Care Provider [phone] Encounter Details Date Type Department Care Team (Late st Contact Info) Description 10/22/2018 Lab Requisition [facility] Care DermPath Lab [address] [facility], [place] [id number] Mamta Rondon MD [address] [facility] [address] [place] [address] Social History Tobacco Use Types Packs/Day Years [...] Priority Date/Time Associated Diagnosis Comments DERMATOPATHOLOGY Routine 10/21/2018 12:0 0 AM CDT documented in this encounter Results * DERMATOPATHOLOGY (10/21/2018 12:00 AM CDT) Case Report Dermatopathology Report Case: [id number] Authorizing Provider: Mamta Rondon MD Collected: 10/21/2018 12:00 AM Pathologist: Jessica Lang MD Received: 10/22/2018 09:05 AM Specimen: Skin, mid chest 9 1:53 PM CDT DERMATOPATHOLOGY LABORATORY Final Diagnosis Specimen A. SKIN, mid chest: LICHEN PLANUS-LIKE KERATOSIS (BENIGN LICHENOID KERATOSIS) (L82.1) 1:53 PM CDT DERMATOPATHOLOGY LABORATORY Clinical History AK vs BCC vs SCC, growing, non-healing 1:53 PM CDT DERMATOPATHOLOGY LABORATORY Gross Description Specimen A: Received is one formalin filled container labeled with the patient's name and designated mid chest. The specimen consists of a shave biopsy measuring 5x4x1 mm. Jar 0. 1:53 PM CDT DERMATOPATHOLOGY LABORATORY Microscopic Description Specimen A. SKIN, mid chest: The epidermis is mildly acanthotic. There is a lichenoid infiltrate with vacuolar changes of basilar keratinocytes and scattered necrotic keratinocytes. 1:53 PM CDT DERMATOPATHOLOGY LABORATORY Disclaimer An external and internal positive and negative controls are appropriate for the histochemical, immunohistochemical and immunofluorescence stain(s) in this case (if any), except where stated explicitly. The performance characteristics of the stain(s) cited in this report were developed and its performance characteristic determined by the Dermatopathology Laboratory at [facility], directed by Dr. Ramila Ramos. These tests need not be, and therefore are not, approved by the [place] Food and Drug Administration. The tests are used for clinical purposes. Billing Codes Specimen Charges Stain Charges 93831 1 1:53 PM CDT DERMATOPATHOLOGY LABORATORY Embedded Images 1:53 PM CDT DERMATOPATHOLOGY LABORATORY Pathology/Cytolog y TISSUE SPECIMEN FROM SKIN / Unknown 10/21/2018 10/22/2018 9:05 AM CDT Mamta Rondon MD LAB - PATHOLOGY/CYT OLOGY ORDERABLES DERMATOPATHOLOGY LABORATORY [facility] - Department of Dermatology [address] [facility], [address] [place] [address], [facility] [phone] documented in this encounter Visit Diagnoses Not on filedocumented in this encounter Care Teams Loan Examiner Relationship Specialty Start Date End Date Aamir Middleton MD [address] [place] [phone] PCP - General 12/23/17 documented as of this encounter
--- OUTSIDE RECORDS SUMMARY | 2024-08-15 16:01 | XMS_ITS | Encounter Summary ---
Author Organization [facility] Address [address] [place] [address] Phone Care Team Providers Care Stitcher Set Up Operator Automatic Name Role Phone Aamir Middleton MD Primary Care Provider [phone] Hilda Almonte MD Unavailable [phone] Cornelio Alfaro MD Unavailable [phone] Issa Valencia MD Unavailable [phone] Rod Pablo MD Unavailable Laron Casey MD Unavailable Landry Conklin MD Unavailable [phone] Mamta Rondon MD Unavailable [phone] Lizeth Hampton MD Unavailable [phone] Encounter Details Date Type Department Care Team (Late st Contact Info) Description 02/13/2022 Orders Only [facility] [address] [place] [address] Aamir Middleton MD [address] [address] Social History Tobacco Use Types [...] on file 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 Gender Identity Not on file Sexual Orientation Not on file 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 fi le documented as of this encounter Plan of Treatment Not on file documented as of this encounter Procedures Procedure Name Priority Date/Time Associated Diagnosis Comments SCAN - RADIOLOGY/IMAGING 02/13/2022 documented in this encounter Results * SCAN - RADIOLOGY/IMAGING (02/13/2022) Anatomical Region Laterality Modality Other us Aamir Middleton MD Final Result documented in this encounter Visit Diagnoses Not on filedocumented in this encounter Additional Health Concerns Infection Onset Date Last Indicated Resolved Time COVID: Suspected 10/02/2022 10/02/2022 10/03/2022 3:05 AM CDT documented as of this encounter Care Teams Stitcher Set Up Operator Automatic Relationship Specialty Start Date End Date Aamir Middleton MD [address] [place] [id number] PCP - General 09/05/16 Hilda Almonte MD [address], [place] [id number] Consulting Physician Obstetrics and Gynecology 01/06/13 Cornelio Alfaro MD [address], [place] [id number] Consulting Physician Urology 01/28/20 08/24/23 Issa Valencia MD [address] [place] [address] Consulting Physician Urology 04/09/20 Rod Pablo MD [address] [facility] [address] [place] [address] Consulting Physician Gastroenterology 05/21/20 Laron Casey MD [address] [place] [address] Consulting Physician Sleep Medicine 12/06/20 Landry Conklin MD [address] [place] [address] Consulting Physician Ophthalmology 10/30/21 Mamta Rondon MD [address] [place] [address] Consulting Physician Dermatology 02/12/23 Lizeth Hampton MD [address] [facility] [place] [address] Consulting Physician Urology 05/22/23 documented as of this encounter
--- OUTSIDE RECORDS SUMMARY | 2024-08-15 16:02 | XMS_ITS | Encounter Summary ---
Author Organization [facility] Address [address] [place] [address] Phone Care Team Providers Care Reading Teacher Name Role Phone Aamir Middleton MD Primary Care Provider [phone] Hilda Almonte MD Unavailable [phone] Cornelio Alfaro MD Unavailable [phone] Issa Valencia MD Unavailable [phone] Rod Pablo MD Unavailable [phone] Laron Casey MD Unavailable Landry Conklin MD Unavailable [phone] Mamta Rondon MD Unavailable [phone] Lizeth Hampton MD Unavailable [phone] Encounter Details Date Type Department Care Team (Late st Contact Info) Description 07/14/2017 Orders Only [facility] [address] [place] [address] Aamir Middleton MD [address] [address] Social History Tobacco Use Types Packs/Day Years Used Date Smoking Tobacco: Former Smokeless Tobacco: Never Alcohol Use Standard Drinks/Week Comments Yes 0 (1 standard drink = 0.6 oz pur e alcohol) Comments Unknown Sex and Gender Information Value Date Recorded Sex Assigned at Not on file Legal Sex Female 6:48 AM HAND CIGAR MAKER Gender Identity Not on file Sexual Orientation Not on file documented as of this encounter Plan of Treatment Not on file documented as of this encounter Procedures Procedure Name Priority Date/Time Associated Diagnosis Comments SCAN - LABS 07/14/2017 3:37 PM HAND CIGAR MAKER documented in this encounter Results * SCAN - LABS (07/14/2017 3:37 PM HAND CIGAR MAKER) Aamir Middleton MD Final Result documented in this encounter Visit Diagnoses Not on filedocumented in this encounter Additional Health Concerns Infection Onset Date Last Indicated Resolved Time COVID: Suspected 12/31/2019 12/31/2019 01/01/2020 8:24 PM CDT Respiratory Infection (ANI), contact + droplet Comment:Automatically added due to negative COVID-19 result. 01/01/2020 01/01/2020 01/15/2020 3:0 6 AM CDT COVID: Suspected 10/02/2022 10/02/2022 10/03/2022 3:05 AM CDT documented as of this encounter Care Teams Reading Teacher Relationship Specialty Start Date End Date Aamir Middleton MD [address] [place] [address] PCP - General 09/05/16 Hilda Almonte MD [address] [facility] [address], [place] [address] Consulting Physician Obstetrics and Gynecology 01/06/13 Cornelio Alfaro MD [address] [facility] [address], [place] [address] Consulting Physician Urology 01/28/20 08/24/23 Issa Valencia MD [address] [facility] [address], [place] [address] Consulting Physician Urology 04/09/20 Rod Pablo MD [address] [facility] [address] [place] [address] Consulting Physician Gastroenterology 05/21/20 Laron Casey MD [address] [place] [address] Consulting Physician Sleep Medicine 12/06/20 Landry Conklin MD [address] [facility] [address] [place] [address] Consulting Physician Ophthalmology 10/30/21 Mamta Rondon MD [address] [place] [address] Consulting Physician Dermatology 02/12/23 Lizeth Hampton MD [address] [facility] [place] [address] Consulting Physician Urology 05/22/23 documented as of this encounter
--- OUTSIDE RECORDS SUMMARY | 2024-08-15 16:02 | XMS_ITS | Clinical Summary ---
Author Organization [facility] [address] Address [address] [place] [address] Phone Care Team Providers Care Silk Hanger Name Role Phone Aamir Middleton MD Primary Care Provider [phone] Hilda Almonte MD Unavailable [phone] Issa Valencia MD Unavailable [phone] Rod Pablo MD Unavailable [phone] Laron Casey MD Unavailable Landry Conklin MD Unavailable Mamta Rondon MD Unavailable [phone] Lizeth Hampton MD Unavailable [phone] Allergies Active Allergy Reactions Criticality Noted Date Comments Codeine Headache Low 05/31/2018 Latex Rash,Cough Medium 05/31/2018 Nickel Rash,Redness Medium 05/31/2018 Penicillin G Rash Medium Medications levothyroxine (SYNTHROID) 100 mcg tabletIndications :Acquired hypothyroidism Take 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 (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 90 tablet 04/22/20 24 Active buPROPion XL (WELLBUTRIN XL) 150 mg 24 hr tabletIndications :Persistent mood disorder Take 1 tablet (150 mg total) by mouth every morning 90 tablet 1 04/25/20 24 Active estrogens, conjugated, (PREMARIN) vaginal creamIndications: Malignant neoplasm of urinary bladder, unspecified site ([facility]) Insert 0.5 g into the vagina 3 (three) times a week 30 g 3 05/20/20 24 026 Active metFORMIN (GLUCOPHAGE) 500 mg tabletIndications :Type 2 diabetes mellitus without complication, unspecified 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 ([facility]) TAKE 1 TABLET TWICE DAILY WITH MEALS 180 tablet 07/13/19 25 Active omeprazole (PriLOSEC) 20 mg capsuleIndication s:Gastroesophagea l reflux disease with esophagitis TAKE 1 CAPSULE DAILY 90 capsule 07/13/19 25 Active pravastatin (PRAVACHOL) 20 mg tabletIndications :Hyperlipidemia associated with type 2 diabetes mellitus ([facility]) TAKE 1 TABLET NIGHTLY 90 tablet 07/13/19 25 Active citalopram (CeleXA) 20 mg tablet Take 0.5 tablets (10 mg total) by mouth daily EVIE POON 04/22/20 24 Active SUMAtriptan (IMITREX) 100 mg tabletIndications :Migraine without aura and without status migrainosus, not intractable Take 0.5 tablets (50 mg total) by mouth daily as needed for migraine 07/22/19 25 Active aspirin 81 mg enteric coated tablet Take 1 tablet (81 mg total) by mouth daily 07/22/19 25 Active amitriptyline (ELAVIL) 10 mg tabletIndications :Migraine Prevention Take 1 tablet (10 mg total) by mouth nightly 90 tablet 3 11/02/19 21 021 Discontinued SUMAtriptan (IMITREX) 100 mg tabletIndications :Migraine without aura and without status migrainosus, not intractable TAKE 1 TABLET ONCE NEEDED FOR MIGRAINE FOR UP TO 54 DOSES 27 tablet 07/08/19 25 025 Discontinued Active Problems Problem Noted Date Diagnosed Date Aortic ejection murmur 07/22/2024 Assessment & Plan (07/22/2024 5:04 PM [employer] DEPARTMENT): New finding, uncertain cause or significance. She did have a stress echo about three years ago at [facility] that reported no major valvular abnormalities. We discussed the finding on today's exam and appropriate follow-up including echocardiogram and clinical re-evaluation. For now she wants to defer any additional evaluation. Epigastric fullness 02/06/2023 Overview (03/18/2023): Started after returning from [place], worse in past 2 weeks. Assessment & Plan (03/18/2023 4:34 PM CDT): She has epigastric bloating and early satiety. The cause of her symptoms is unclear. She will follow-up with the GI service at [facility]. Repeat upper endoscopy may be needed. Dyspnea on exertion 02/06/2023 Overview (03/18/2023): Started after returning from [place]. Assessment & Plan (04/16/2023 1:40 PM [employer] DEPARTMENT): Shortly after her visit in the office about a month ago with complaints of dyspnea on exertion, her symptoms completely resolved so she never went for the pulmonary function studies or other testing ordered. She does have a moderate anemia which might be contributing, but she is currently asymptomatic so we are deferring any additional evaluation. Assessment & Plan (03/25/2023 5:35 PM CDT): She notes dyspnea on exertion since returning from a stay in [place] about a month ago. She is fine at rest, but does not have the exercise tolerance she is used to. She has difficulty climbing her steps at home. At the top she is quite winded and her heart is beating fast. She denies chest pain or pressure. She denies swelling in her legs. She does note worsening of her somewhat chronic cough which is nonproductive. Exam is unremarkable and oxygen saturation on room air is normal. We ordered a chest x-ray and PFTs. We ordered labs including a CBC. Consider additional evaluation of cardiac function as needed. Return as scheduled in April, or sooner if needed. Acute non-recurrent maxillary sinusitis 10/03/19 Assessment & Plan (10/02/2022 4:05 PM CDT): URI symptoms for 1 week, got better and then worse again yesterday. Tested negative for COVID at home. Significant clear PND and maxillary tenderness on exam. Will Rx Z pack as patient has PCN allergy. Rxd albuterol and Benzonatate as needed for cough/chest tightness. Use OTC meds as needed for cough. Discussed antihistamine use (zyrtec/lizzy) to help dry up mucous. Tylenol/Ibuprofen as needed for pain. Increase fluids (water) Cool mist humidifier at night Use sinus rinses to help flush bacteria and help with congestion. Encouraged honey, marshmallows, or chloraseptic to help coat throat. Call with any worsening or persistent symptoms. Low bone density 02/13/2022 Overview (03/09/2022): DEXA on 02/13/2022: Low bone mass, lumbar spine T score -1.5, [facility]. Assessment & Plan (07/22/2024 3:38 PM [employer]PARTMENT): Chronic, diagnosed 2-3 years ago, currently managed with maintaining her vitamin-D level and calcium intake through diet. Unfortunately she has to take omeprazole because of a long segment of Barretts being treated by GI. This medication could affect her bone mineralization. She is scheduled for a follow-up bone density at [facility] next month and will call to discuss results. Assessment & Plan (04/16/2023 1:33 PM [employer] DEPARTMENT): She gets plenty of calcium in her diet and with a supplement taken at bedtime. Her vitamin-D intake is probably adequate, but there is no level on file which we ordered today. Herpes labialis 12/02/2021 Abnormal EKG 11/14/2021 Overview (11/14/2021): T-wave inversions in V1 and V2 on welcome to Medicare EKG, possibly normal for age. Rule out anterior ischemia. Assessment & Plan (11/14/2021 2:17 PM CDT): She is here for her welcome to Medicare visit. EKG shows some T-wave inversions in V1 and V2. There is no prior EKG for comparison. This could be anterior ischemia, or could be normal. She does get short of breath with exertion, but does not experience chest pain or pressure. We will request a stress echocardiogram. Follow-up early as needed. Coronary artery calcification 10/15/2021 Overview (11/14/2021): Noted on CT chest done to evaluate for possible bladder cancer metastasis. Assessment & Plan (07/22/2024 5:05 PM [employer] DEPARTMENT): Chronic, present for 2-3 years, probably asymptomatic but we discussed the option of risk reduction with low-dose aspirin which she thinks she can tolerate. She will pick this up OTC. Assessment & Plan (10/16/2023 1:39 PM CDT): Chronic, stable. Coronary artery calcifications were incidentally noted on a CT for bladder cancer staging. She is on pravastatin to reduce cardiovascular risk. Continue same. Assessment & Plan (04/16/2023 1:32 PM [employer] DEPARTMENT): She has some risks for coronary disease but denies having chest pain or pressure. She stays very active. She had a normal stress echo about a year ago at [facility]. She does take pravastatin. Lipids are reasonably favorable. Lab Results Component Value Date CHOL 201 (H) 03/24/2023 CHOL 222 (H) 11/22/2020 CHOL 177 01/06/2017 Lab Results Component Value Date HDL 56 03/24/2023 HDL 66 11/22/2020 HDL 57 01/06/2017 Lab Results Component Value Date LDL 117 (H) 03/24/2023 LDL 132 (H) 11/22/2020 LDL 91 01/06/2017 LDLDIRECT 133 (H) 11/11/2021 SCRLDL 105 01/11/2020 Lab Results Component Value Date TRIG 161 (H) 03/24/2023 TRIG 127 11/22/2020 TRIG 144 01/06/2017 Lab Results Component Value Date ALT 10 03/24/2023 AST 17 03/24/2023 ALKPHOS 76 03/24/2023 BILITOT 0.3 03/24/2023 Assessment & Plan (05/12/2022 3:29 PM [employer] DEPARTMENT): On a chest CT done to evaluate for possible bladder cancer metastases, coronary calcium was noted. Stress echo was negative for ischemia. We discussed the risks versus benefits of aspirin therapy for asymptomatic patients with possible atherosclerosis. She says she will think about taking low-dose aspirin. Assessment & Plan (11/14/2021 2:22 PM CDT): She has moderate coronary calcifications on a CT chest done for bladder cancer. She gets short of breath with exertion. Baseline EKG may show some anterior ischemia. We are requesting a stress echo after discussing options including plain stress test or stress with nuclear imaging. Lab Results Component Value Date GLUCOSE 107 (H) 11/11/2021 CALCIUM 9.8 11/11/2021 SODIUM 139 11/11/2021 POTASSIUM 4.7 11/11/2021 CO2 28 11/11/2021 CHLORIDE 105 11/11/2021 BUNSER 12 11/11/2021 CREATININE 0.75 11/11/2021 Arthritis of carpometacarpal (CMC) joint of left thumb 02/26/2021 Assessment & Plan (02/26/2021 1:27 PM CDT): Patient has popping and pain in the left thumb. Pain is worse with grasping and adduction of the thumb. This has been on ongoing issue for several years. She uses a brace and occasional advil or aleve. She is interested in seeing a hand specialist for possible specialized brace. Agree with patient that this was beneficial. We will refer. Patient will follow up as scheduled or sooner. Abnormal mammogram of right breast 04/27/2020 Overview (05/02/2020): Possible developing densities in the lower right breast on [facility] screening mammogram, additional views and ultrasound ordered. Assessment & Plan (05/09/2021 2:05 PM SU[employer] DEPARTMENT): She is due for follow-up ultrasound of the right breast and bilateral screening mammograms. She will get those done this afternoon. Assessment & Plan (05/21/2020 11:38 AM [employer] DEPARTMENT): She had a right lower breast abnormality on screening mammogram. It sounded somewhat vague and equivocal. The earliest follow-up she could get at her imaging center of choice is not until July although they will call if there is an opening before that. In the meantime, she has no real complaints with regard to the breast and there is no right axillary adenopathy. A few clinically benign lymph nodes are noted in the left axilla which we discussed today. Malignant neoplasm of urinary bladder 01/30/2020 Cancer Staging:Clinical stage from 01/26/2020:Stage 0a(cTa, cN0, cM0) - Signed by Aamir Middleton MD on 05/20/2020 Overview (03/24/2023): Treated with BCG at [facility]. Multiple follow up cystoscopies including 03/20/2023: - Predominantly denuded urothelium, unremarkable - Non-specific chronic inflammation and fibrosis in the lamina propria - No evidence of in situ or invasive carcinoma - Muscularis propria not identified - Prior treatment related changes identified Assessment & Plan (07/22/2024 3:34 PM [employer] DEPARTMENT): Chronic, diagnosed 4-5 years ago, in remission after BCG and intravesical chemotherapy with no evidence of recurrence on the most recent cystoscopy. She will keep followups with Urology. Assessment & Plan (10/16/2023 1:40 PM CDT): Chronic, controlled. She continues to receive treatment from Urology about every six months. Treatment will be completed in about two years. She denies any urinary symptoms of concern at this time. Assessment & Plan (04/16/2023 1:34 PM SU[employer] DEPARTMENT): She had a recurrence of her bladder tumor earlier this year that was resected. She is getting monthly chemotherapy for another six months or so. She seems to be tolerating it well, although it could be contributing to her anemia. Assessment & Plan (05/12/2022 3:30 PM SUPER[employer] DEPARTMENT): She had a follow-up cystoscopy this morning and everything looked good. She will keep her follow ups with Urology. Assessment & Plan (11/14/2021 2:21 PM CDT): She is due for one more BCG treatment. So far there has been no evidence of recurrence. She will keep her follow ups with Urology. Assessment & Plan (05/09/2021 2:08 PM SUPER[employer] DEPARTMENT): She has nearly completed her treatment phase, and will soon be entering a surveillance phase with cystoscopy every three months. She is very pleased with the outcome so far. Assessment & Plan (11/01/2020 10:07 AM CDT): She says her bladder cancer treatment has been going well although she did have a relapse despite BCG treatments. She will keep her follow ups with Oncology at [facility]. She takes azo for few days after each treatment to deal with the bladder spasms. She gets this [id number]. Assessment & Plan (06/02/2020 1:03 PM [employer] DEPARTMENT): She is doing well with BCG treatments which she is currently getting at [facility]. She has a little urinary discomfort after the treatments but otherwise is doing well. She will keep her follow ups with Urology. Hiatal hernia 01/27/2020 Overview (03/18/2023): Incidentally noted on renal imaging for bladder cancer. Assessment & Plan (03/18/2023 4:26 PM CDT): She has a moderate to large hiatal hernia which might be contributing to some of her epigastric symptoms. She will continue on omeprazole. We are referring her to GI for further evaluation. Stress incontinence, female 10/28/2019 Overview (10/28/2019): [facility] Pyriformis syndrome, right 10/28/2019 Overview (10/28/2019): [facility], details lacking. Menopausal symptoms 10/28/2019 Overview (10/28/2019): [facility]. Jumper's knee of left side 10/28/2019 Overview (10/28/2019): [facility], details lacking. Sensorineural hearing loss (SNHL) of left ear Overview (05/20/2020): Developed after a severe ear infection in 2017. Followed by ENT at [facility]. Actinic keratosis 07/27/2015 Inflamed seborrheic keratosis 07/27/2015 Skin benign neoplasm 07/27/2015 Gastroesophageal reflux disease with esophagitis 06/27/2015 Overview (09/11/2016): GERD Assessment & Plan (07/22/2024 5:05 PM SU[employer] DEPARTMENT): Chronic, present for 10 or more years, associated with Barretts esophagus. She will be due for a follow-up EGD this year [facility] In the meantime, continue omeprazole 20 mg daily. Assessment & Plan (03/18/2023 4:32 PM CDT): She noticed a recent increase in heartburn symptoms. She doubled the dose of omeprazole which helped. However, she still has epigastric bloating and early satiety. She will follow-up with the GI service at [facility]. Assessment & Plan (05/21/2020 11:36 AM SUPERVIS[employer] DEPARTMENT): She has Bernstein's esophagitis and sees a GI doctor in [place] about every three years. She continues on omeprazole. Assessment & Plan (10/28/2019 1:18 PM CDT): She continues on omeprazole for acid reflux and a history of Bernstein's esophagus. Continue same. Refills sent. Assessment & Plan (06/12/2017 2:21 PM SUPER[employer] DEPARTMENT): She is on omeprazole for GE reflux [...] dysphagia. Bernstein's esophagus without dysplasia 06/15/2015 Overview (12/13/2021): Symptoms well controlled on omeprazole taken once a day. Follow-up with GI in [place]. EGD 08/16/2021: Long segment of Bernstein's (biopsied), large Hiatal Hernia, Rod Pablo MD, [facility]. Assessment & Plan (10/16/2023 1:39 PM CDT): Chronic, stable. She takes omeprazole. She denies any trouble swallowing, although she did have a funny sensation on the left side of her oropharynx a few weeks ago which has pretty much resolved. If she has any new or recurring symptoms, she will report them. Otherwise follow-up EGD is planned next June. Assessment & Plan (05/02/2023 11:35 AM SUPERVISOR [employer] DEPARTMENT): She takes omeprazole. She has a follow-up with [facility] in a few months to re-evaluate her hiatal hernia and acid reflux. In the meantime, she will continue the PPI, risks of medication discussed, especially in relation to low bone density, see discussion elsewhere. Assessment & Plan (03/18/2023 4:22 PM CDT): Heartburn symptoms have flared up recently. She increased the dose of omeprazole for a few days which helped. She denies trouble swallowing or food getting stuck. However she has a constant epigastric bloating and early satiety. Weight is stable. Her last endoscopy was about a year ago for follow-up of a long segment of Bernstein's. She had acute and chronic inflammation but no dysplasia or malignancy. We recommended a follow-up with GI for this as well as a moderate to large hiatal hernia that might be causing some of her symptoms. She would like to see Dr. Kamini Claros at [facility] so we will submit a consultation. Assessment & Plan (05/12/2022 3:28 PM SUPERVIS[employer] DEPARTMENT): She continues on omeprazole. If she misses a dose, she can tell the difference. She had a follow-up EGD in August that showed a long segment of Bernstein's which was biopsied. She will keep her follow ups with GI at [facility]. Assessment & Plan (11/16/2021 10:36 AM CDT): She is being followed in [place] by GI. She had an upper endoscopy recently and will get us a copy. It showed persistent changes of Bernstein's. She has upper endoscopy about every two years. She denies difficulty or pain with swallowing Assessment & Plan (05/26/2021 4:42 PM SUPERVIS[employer] DEPARTMENT): She takes omeprazole. She denies any new symptoms, but she might be due for a follow-up EGD. The last one we have on file is from five years ago. There was no dysplasia at that time. There was a long segment of Bernstein's. She may have had one in the interim in [place]. She will check with her GI doctors. Iron deficiency anemia 09/20/2014 Overview (01/07/2021): Overview: Iron deficiency anemia Assessment & Plan (10/19/2023 7:55 PM CDT): Chronic, controlled. She is taking an iron supplement with improvement in CBC and iron profile. Lab Results Component Value Date WBC 8.4 10/05/2023 HGB 13.0 10/05/2023 HCT 40.7 10/05/2023 MCV 94.0 10/05/2023 LABPLAT 446 (H) 10/05/2023 Lab Results Component Value Date IRON 78 10/05/2023 TIBC 330 10/05/2023 Assessment & Plan (04/16/2023 1:35 PM SUPERVIS[employer] DEPARTMENT): She has a moderate microcytic anemia of unknown cause. She may be losing microscopic blood from her GI tract. It could be partly due to chemotherapy for bladder cancer. She tolerates oral iron supplements poorly, especially ferrous sulfate which upsets her stomach and makes her constipated. We ordered a follow-up iron profile, but it has not been done yet. Depending on the results, we may resume iron supplements in a different form. Migraine without aura or status migrainosus 05/08 Overview (01/07/2021): Overview: Migraine Last Assessment & Plan: Her morning headaches respond to Imitrex suggesting a migraine component. We gave her a refill. Continue to monitor. Assessment & Plan (07/22/2024 3:34 PM SU[employer] DEPARTMENT): Chronic, present for many years, controlled with sumatriptan taken as needed. Continue same. Assessment & Plan (10/16/2023 1:41 PM CDT): Chronic, uncontrolled. Imitrex works well for her, but makes her feel unsteady on her feet. If she has to do something, she does not like to take it. She would like to try Ubrelvy which we sent to her pharmacy, risks of medication discussed. Psoriasis 05/02/2012 Overview (01/07/2021): Overview: Psoriasis Assessment & Plan (05/12/2022 3:32 PM SU[employer] DEPARTMENT): She has mild patches of psoriasis that come and go. She applies triamcinolone ointment as needed. We sent in a refill. Hyperlipidemia associated with type 2 diabetes cherry lynch 04/26/2012 Overview (11/01/2017): Hyperlipidemia, on statin. Assessment & Plan (07/22/2024 3:34 PM SUPER[employer] DEPARTMENT): Chronic, controlled on pravastatin 20 mg daily. Continue same. Assessment & Plan (10/16/2023 1:39 PM CDT): Chronic, controlled. She takes pravastatin and is tolerating it well. We will check lipids before her next visit in six months. Assessment & Plan (04/16/2023 1:32 PM SUPERVISOR [employer] DEPARTMENT): Continue pravastatin. Assessment & Plan (05/12/2022 3:30 PM SUPERVISOR [employer] DEPARTMENT): She is tolerating generic Pravachol. Continue same. We will check fasting labs before her next visit in about 11 months. Assessment & Plan (11/14/2021 2:20 PM CDT): LDL is still slightly elevated despite being on pravastatin. We discussed possibly changing to a more potent statin such as atorvastatin or rosuvastatin, and she will read about them. Assessment & Plan (05/09/2021 2:07 PM SUPERVISOR [employer] DEPARTMENT): She is on generic Pravachol, tolerating well. We will check lipids before her next follow-up in six months. Assessment & Plan (11/01/2020 10:06 AM CDT): She takes generic Pravachol. We will check a follow-up lipid profile. Assessment & Plan (10/28/2019 1:18 PM CDT): She is on pravastatin, tolerating well. Cardiovascular risk appears to be controlled. Assessment & Plan (07/03/2019 4:33 PM SUPERVISOR [employer] DEPARTMENT): She had another cholesterol panel checked after stopping her generic Crestor last summer because of muscle aches and pains. The panel was nonfasting, but there were elevations of total and LDL cholesterol as well as triglycerides. She would like to go back on something for cholesterol. We discussed the statins least likely to be associated with myopathy. She would like to try pravastatin and we sent in a prescription. We will start it a low to medium dose. She will have another cholesterol panel done before her follow-up in October. Assessment & Plan (10/25/2018 3:30 PM CDT): She has not had a cholesterol profile for nearly two years. She remains on generic Crestor, tolerating well. We will have her get a follow-up profile done at her convenience. Assessment & Plan (10/19/2017 2:16 PM CDT): She had a bit of a rough start with the Crestor, but is now tolerating it well. Continue same. We will check labs periodically. Assessment & Plan (06/12/2017 2:20 PM SUPERVISOR [employer] DEPARTMENT): Status of her lipids is unknown. I have minimal labs available to review. Will get a follow-up lipid panel. She does take the Zocor. Continue same. Follow up in six months. Type 2 diabetes mellitus without complication Overview (09/10/2016): Diabetes mellitus Assessment & Plan (07/22/2024 3:35 PM SUPERVIS[employer] DEPARTMENT): Chronic, present for 10 or more years, controlled on a low dose of metformin 500 mg twice daily. Continue same. Follow-up labs can be done now or when she finds her new provider in [place]. Assessment & Plan (10/16/2023 1:43 PM CDT): Chronic, controlled. Her diet has not been super strict, especially when she is traveling. HGB A1c went up a little bit but is still within the target range of less than 7%. She takes metformin which probably gives her a little bit of diarrhea now and then, perhaps 20% of bowel movements. There is no blood in the stools. She had her diabetic eye exam with Dr. Conklin. We will see her back in six months with follow-up labs. Lab Results Component Value Date HGBA1C 6.6 (H) 10/14/2023 Assessment & Plan (04/16/2023 1:36 PM SUPERVISOR [employer] DEPARTMENT): She does not check blood sugars at home, but diabetes seems to be well controlled with metformin twice a day and her diet. We will see her back in six months with labs. Lab Results Component Value Date HGBA1C 6.1 (H) 03/24/2023 HGBA1C 6.1 (H) 05/08/2022 HGBA1C 6.1 (H) 11/11/2021 Lab Results Component Value Date MICROALBUR 0.7 11/11/2021 CREATININE 0.89 03/24/2023 Assessment & Plan (05/12/2022 3:33 PM [employer]): Diabetic control generally is very good. She is on metformin 500 mg twice a day. She would like to adjust her follow-up schedule and return in 11 months which I think is reasonable given the good control of her diabetes and other conditions. We will check follow-up labs before her next visit in about 11 months. Assessment & Plan (02/09/2022 2:22 PM CDT): Scanned ophthalmology summary, Dr. Landry Conklin, mild cataracts OU, no diabetic retinopathy. Assessment & Plan (11/14/2021 2:22 PM CDT): She does not check blood sugars at home, but HbA1c is in a good range. She is tolerating metformin. Continue same and follow-up in six months. Lab Results Component Value Date HGBA1C 6.1 (H) 11/11/2021 Assessment & Plan (05/09/2021 2:09 PM [employer]): She is due for a hemoglobin A1c. Traditionally she has had very good control of her diabetes with diet and metformin. Continue same. Assessment & Plan (11/05/2020 10:09 AM CDT): Diabetic eye exam on 09/07/2020 (patient declined dilation), Dada Conklin, OD, no retinopathy, see scanned report. Annual follow up recommended. Assessment & Plan (11/01/2020 10:03 AM CDT): She does not check blood sugars at home. She has not had labs done recently so we will get those done. Traditionally she has had good control of the diabetes and actually lowered the dose of metformin recently from 1000 mg in the morning and 500 at night to 500 mg twice a day. We will see her back in six months, or sooner if needed. Assessment & Plan (06/02/2020 1:02 PM [employer]): Fasting blood sugars are generally around 125 mg/dL. Her last hemoglobin A1c was indicative of very good control at 6.1%. We will check a follow-up before her next visit in six months. She will also be due for her diabetic eye exam soon and will forward us a copy. Assessment & Plan (10/28/2019 1:21 PM CDT): She continues on metformin to control diabetes. Traditionally, she has done very well and plans to have follow-up labs done sometime in the next two months or so. Assessment & Plan (07/03/2019 4:36 PM [employer]): Diabetes appears to be well controlled. She gets her labs at work and forwards copies to us for review. Eye exam is up to date. We will see her for her scheduled visit in a few months. Assessment & Plan (10/25/2018 3:32 PM CDT): Blood sugars are usually 90-100 mg% when she checks them. A recent hemoglobin A1c is controlled 6.2%. She is tolerating the metformin with slightly loose stools. She is eating right and continues to lose a little weight. She will get her eye exam tomorrow. We will check a follow-up hemoglobin A1c in six months and she wants to return annually so additional labs will be done at that time. Assessment & Plan (05/17/2018 5:12 PM [employer]): Blood sugars are in a good range. Hemoglobin A1c is less than 7.0. No complications are apparent. She will get her diabetic eye exam done and follow up in six months with additional labs to monitor this condition. Assessment & Plan (10/19/2017 2:18 PM CDT): Blood sugar on a nonfasting sample recently was a little under 200 mg/dL, but normally she thinks her fasting blood sugar is lower. Hemoglobin A1c is usually around 6.3. We will check a follow-up value. We are getting her a glucometer to check blood sugars at home. She will be seeing a nurse educator. Follow-up here in six months. Assessment & Plan (06/12/2017 2:20 PM [employer]): She is not checking blood sugars at home. We will get her a glucometer so she can do that. I do not have a hemoglobin A1c on file, so she will get that drawn. She prefers to have them done at her place of employment which is the [facility]. She will see an eye doctor annually. Follow-up here in about six months. Atypical migraine 03/22/2010 Anxiety 02/13/2010 Motion sickness 12/06/2009 Assessment & Plan (11/01/2020 10:05 AM CDT): She needed a refill of scopalamine patch which she uses for motion sickness on trips. Assessment & Plan (06/02/2020 1:02 PM [employer]): She plans to go boating in [place] this winter and needs scopalamine to prevent motion sickness. We sent in a refill. Acquired hypothyroidism 01/07/2008 Overview (11/16/2021): She is on a stable dose of replacement. Assessment & Plan (07/22/2024 3:32 PM [employer]): Chronic, present for 15-20 years, controlled on levothyroxine 100 mcg daily. Continue same. Assessment & Plan (04/16/2023 1:30 PM [employer]): She is on a stable dose of replacement. We will monitor labs periodically. Lab Results Component Value Date TSH 0.62 03/24/2023 Assessment & Plan (03/25/2023 5:33 PM CDT): She is having nonspecific symptoms including poor exercise tolerance, tachycardia with minimal exertion, and just not feeling right. She is due for a thyroid checked which she will get done soon. Assessment & Plan (05/29/2022 8:33 AM [employer]): She is on a stable dose of levothyroxine. She has a mild generalized thyroid prominence with slight irregularity, but no discrete nodule as such. We last evaluated this finding with an ultrasound two years ago and the thyroid was reported as normal. We will continue to monitor clinically. She is on levothyroxine with a normal TSH as of last determination. Lab Results Component Value Date TSH 2.39 11/11/2021 Assessment & Plan (11/14/2021 2:18 PM CDT): TSH is in a good range. Continue current replacement therapy. Lab Results Component Value Date TSH 2.39 11/11/2021 Assessment & Plan (05/09/2021 2:06 PM [employer]): She is on a stable dose of replacement therapy. She is due for lab testing. She wonders if her T3 or T4 could be low. She read an article that said it might relate to memory decline which she thinks she has been experiencing lately. We will order some labs and get back in touch with her. Persistent mood disorder 01/15/1995 Overview (05/08/2021): Controlled on medication. Assessment & Plan (07/22/2024 5:07 PM [employer]): Chronic, present for decades, she reports symptoms are well controlled on bupropion XL 150 mg daily and citalopram 10 mg daily. Continue same. Assessment & Plan (10/19/2023 7:50 PM CDT): Chronic, uncontrolled. She had a episode of depression during July. On her own, she doubled the dose of Celexa from 10 mg daily to 20 mg daily and this seemed to help. More recently she is experiencing a lot of anxiety and irritability. She is not sure why. She has a good marriage and an interesting and full life. We suggested she seek out some counseling. She will check with her insurance and call us if a referral is needed. Assessment & Plan (04/16/2023 1:36 PM [employer]): She is doing well on Celexa 10 mg every morning. Continue same. Assessment & Plan (05/12/2022 3:31 PM [employer]): She says her mood is good on her current dose of Wellbutrin XL 150 mg daily and Celexa 10 mg nightly. She says single agent therapy does not work for her. Continue same. Assessment & Plan (11/14/2021 2:21 PM CDT): Her mood is good. She will continue citalopram and bupropion. Assessment & Plan (05/09/2021 2:09 PM [employer]): Her mood is good. She is somewhat worried about her memory as are her children (she reports). She seems quite functional, and we will monitor the situation closely. We are checking some follow-up thyroid function tests. Chronic sinusitis 01/15/1994 Overview (05/08/2021): Symptoms not that well controlled on Flonase alone, added Astelin to her regimen. History of splenectomy 01/07/1984 Overview (01/07/2021): Overview: H/O splenectomy Assessment & Plan (10/16/2023 1:39 PM CDT): Chronic, stable. Meningitis B vaccination booster will be due later this year or early next. History of tobacco use 12/06/1974 Resolved Problems Problem Noted Date Diagnosed Date Resolved Date Bladder mass 01/17/2020 05/20/2020 Overview (05/20/2020): Added automatically from request for surgery [id number], diagnosed with high grade, noninvasive bladder cancer, resected. Gross hematuria 01/09/2020 05/20/2020 Overview (05/20/2020): Due to bladder cancer, s/p resection. Assessment & Plan (01/22/2020 10:49 AM CDT): She was in the [place] last week and had a great time. On the way home, she had sudden onset asymptomatic gross hematuria. No back pain, no dysuria, no fever or chills. 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 We will have her hold low dose aspirin and naproxen. We will check a urinalysis with microscopic and reflex culture. We will get an ultrasound of the kidneys and bladder. We will check urine cytology. Depending on results, referral to urology may be appropriate. Encounter for routine gyneco logical examination 10/28/2019 10/28/2019 Overview (10/28/2019): [facility] COLTON (obstructive sleep apnea) 11/11/2017 03/18/2023 Overview (03/18/2023): See home sleep study read by Dr. Cano. Was on CPAP, then lost weight and no longer needed to use it. Assessment & Plan (05/09/2021 2:08 PM [employer]): She is now on CPAP. Sees Dr. Laron Casey at [facility]. She thinks there has been improvement in her daytime alertness. Assessment & Plan (05/21/2020 11:35 AM [employer]): She finally went to see Dr. Cano and got started on CPAP. She is very pleased with the results. Continue same. Assessment & Plan (06/22/2019 5:23 PM [employer]): She had a sleep study about two years ago that showed mild obstructive sleep apnea. She did not think she could tolerate CPAP, so she never followed up with Dr. Cano. Now she is experiencing morning headaches and wonders if it's due to untreated sleep apnea. This could certainly be the case. We will have her follow-up with Dr. Cano to be re-evaluated and probably treated to see if this improves her headaches. Gastroesophageal reflux dise ase with esophagitis 06/27/2015 05/08/2021 Overview (05/08/2021): Duplicate entry Urinary retention 12/21/2012 05/20/2020 Overview (05/20/2020): [facility], had bladder tie up, Dr. Moore. S/P vaginal hysterectomy 11/29/2012 Hypersomnolence 10/06/2012 05/08/2021 Overview (05/08/2021): Diagnosed with OSAS, started on CPAP. Mixed hyperlipidemia 04/26/2012 021 Overview (01/07/2021): Overview: Hyperlipidemia, on statin. Last Assessment & Plan: She had a bit of a rough start with the Crestor, but is now tolerating it well. Continue same. We will check labs periodically. Disease of thyroid gland 02/13/2010 Overview (05/20/2020): Hypothyroid. Hypercholesterolemia 02/13/2010 018 Thyroid activity decreased 02/13/2010 0 10/18/2017 Persistent mood disorder 01/15/199503/2018 Overview (09/11/2016): Mood disorder Assessment & Plan (10/19/2017 2:17 PM CDT): Her depressive symptoms are much better controlled on the current combination. Continue same. Follow up in six months. Assessment & Plan (06/12/2017 2:19 PM [employer]): She is feeling very well. She has adjusted the doses of her medications and is tolerating them well. Continue same. Refills will be provided. Encounters Date Type Department Care Team Description 07/28/2024 [facility]phone [facility] [address] [place] [address] Aamir Middleton MD 07/22/2024 2:30 PM [employer] Office Visit [facility] [address] [place] [address] Aamir Middleton MD Type 2 diabetes mellitus without complication, without long-term current use of insulin (HCC) (Primary Dx); Hyperlipidemia associated with type 2 diabetes mellitus (HCC); Coronary artery calcification; Gastroesophageal reflux disease with esophagitis without hemorrhage; Acquired hypothyroidism; Malignant neoplasm of urinary bladder, unspecified site (HCC); Persistent mood disorder; Migraine without aura and without status migrainosus, not intractable; Aortic ejection murmur; Low bone density 06/29/2024 Telephone [facility] [address] [facility] [address] [place] [address] Lizeth Hampton MD 06/03/2024 11:36 AM [employer] - 06/03/2024 11:59 PM [employer] Hospital Encounter [facility] [address] [place] [id number] Malignant neoplasm of urinary bladder, unspecified site (HCC) Discharge Disposition: Discharge to home or self care 05/27/2024 12:59 PM [employer] - 05/27/2024 11:59 PM [employer] Hospital Encounter [facility] [address] [place] [id number] Screening mammogram, encounter for Discharge Disposition: Discharge to home or self care 05/20/2024 11:12 AM [employer] - 05/20/2024 11:59 PM [employer] Hospital Encounter [facility] [address] [facility] [address] [place] [address] Malignant neoplasm of urinary bladder, unspecified site (HCC) Discharge Disposition: Discharge to home or self care 05/20/2024 11:00 AM [employer] Office Visit [facility] [address] [facility] [address] [place] [address] Lizeth Hampton MD Malignant neoplasm of urinary bladder, unspecified site (HCC) (Primary Dx) from Last 3 Months Immunizations Immunization Administration Dates Next Due COVID-19 MRNA (MODERNA) .5 M L (50 MCG) VACCINE (12 YEARS AND UP) 03/06/2023 Flucelvax Influenza Quad 02/24/2017 Hep A, Adult 06/08/2002,12/06/2001 Hep A, Unspecified 06/08/2002,12/06/2001 Hep B Vaccine 11/11/2017 Hep B, Adolescent or Pediatric 06/08/1979 Hep B, Unspecified 11/11/2017,12/13/2001 Influenza, Quad, Adjuvantate d, Intramuscular 03/06/2023 Influenza, Quadrivalent, Spl it, Preservative Free, Intramuscular 03/07/2022,03/19/2021,03/05/2020,02/24 Influenza, Trivalent, High D ose, Split, Preservative Free, Intramuscular 04/03/2024 Influenza, Trivalent, IM (MDV) 03/09/2021 Influenza, Trivalent, Preser vative Free, Intramuscular 03/15/2016 Influenza, Unspecified 02/24/2019,03/09/2018, Meningococcal B, OMV (Bexsero) 04/25/2022,2021 Meningococcal MCV4P (Menactra) 03/07/2022,2010 Meningococcal Polysaccharide (Menomune) 12/17/2010 Pfizer SARS-CoV-2 Monovalent Vaccination (12+ Yrs) PURPLE 01/21/2021,08/24/2020,08/02/2020 Pneumococcal Conjugate PCV 13 04/12/2015 Pneumococcal Conjugate Pcv20 02/19/2024 Pneumococcal Polysaccharide PPV23 2019,12/17/2010,08/07/2000,08/07 RSV Vaccine, Pref, Recombina nt, Subunit, Adjuvanted, PF, IM (Arexvy) 04/23/2023 Td, Unspecified 12/13/2001 Tdap 04/25/2022,01/28/2012 Varicella Zoster Immune Globulin 10/14/2017 ZOSTER LIVE 06/19/2008,06/19/2008 ZOSTER Recombinant 04/14/2019,12/04/2017 Surgical History Surgery Date Site/Laterality Comments SECTION 06/08/1986 - 06/07/1987 section X 2 INCONTINENCE SURGERY 01/06/2013 Cystocele, incontinence: bladder tie-up, [place], Dr. Hilda Almonte. PILONIDAL CYSTECTOMY ? Details lacking. BREAST BIOPSY 06/08/2007 - 06/07/2008 Left Details lacking. SPLENECTOMY 06/08/1983 - 06/07/1984 Splenectomy due to trauma HYSTERECTOMY 11/29/2012 [facility], sacrospinous colpopexy, enterocele repair, anterior and posterior colporrhaphy with cystocele and rectocele repair, colpoperineorrhaph y, revision of abdominal scar. Dr. Almonte. ESOPHAGOGASTRODUODENOSCOPY 06/15/2015 Bernstein's esophagitis without dysplasia. [facility], Dr. J Luis Marques. HM COLONOSCOPY 06/15/2015 A tortuous colon, otherwise normal, Dr. J Luis Marques, [facility]. CYSTOSCOPY 01/16/2020 Multiple bladder tumors, Office procedure, Dr. Alfaro. SECTION 06/08/1988 - 06/07/1989 TRANSURETHRAL RESECTION OF BLADDER TUMOR 02/24/2020 CYSTOSCOPY - TRANSURETHRAL RESECTION BLADDER TUMOR, high-grade, noninvasive, Dr. Alfaro, [facility]. CYSTOSCOPY 08/13/2020 Office procedure, Issa Granados. Multiple papillary lesions, the largest about 1.5 cm on anterior wall / dome, then scattered tiny 1-2 mm ones throughout dome and posteriior wall. TOE SURGERY 06/08/2006 - 06/07/2007 Right CYSTOSCOPY 09/12/2020 Cystoscopy, with white light and blue light, resection of bladder tumor, Cecily Martinez. CYSTOSCOPY 01/07/2021 Scattered patches of mild erythema, cytology negative, Dr. Issa Valencia. CYSTOSCOPY 03/18/2021 There were a few minor erythematous patches, likely inflammatory, none overtly concerning for CIS. Issa Valencia MD, office procedure. CYSTOSCOPY 10/28/2021 N/A Scattered small erythematous areas consistent in appearance with inflammation, office procedure. Negative for high-grade urothelial carcinoma, Dr. Issa Valencia. ESOPHAGOGASTRODUODENOSCOPY 08/16/2021 N/A Long segment of Bernstein's, large Hiatal Hernia, Rod Pablo MD, [facility]. CYSTOSCOPY 02/17/2022 N/A Normal, Issa Valencia MD, office procedure. CYSTOSCOPY 09/01/2022 N/A Dr. Issa Valencia, office procedure. Small papillary focus at the mid upper posterior wall which was surrounded by slightly raised area of erythema, bladder wash cytology negative. TRANSURETHRAL RESECTION OF BLADDER TUMOR 09/26/2022 N/A Focal high grade in the background of low grade papillary urothelial carcinoma resected from dome of bladder, largest lesion [address] Issa Valencia. CYSTOSCOPY 03/20/2023 N/A Treatment-related changes, Dr. Hampton [facility]. HM MAMMOGRAPHY 05/13/2023 Bilateral Negative, [facility]. CYSTOSCOPY 02/20/2023 N/A Office proceedure, Dr. Hampton. Abnormal lesion near the bladder dome, otherwise normal. CYSTOSCOPY 05/22/2023 N/A Lizeth Hampton MD, office procedure. Normal cystoscopic evaluation, Cytology pending CYSTOSCOPY 08/21/2023 Office procedure, Lizeth Murray, normal MAMMOGRAPHY 05/27/2024 Bilateral Negative, [facility]. CYSTOSCOPY 03/04/2024 N/A Normal surveillance cystoscopy, Lizeth Murray COSMETIC SURGERY Blepharoplasty 2004 SPLENECTOMY, TOTAL 1984 ABDOMINAL SURGERY 1983 Medical History Medical History Date Comments Bernstein's esophagus determin ed by biopsy On PPI. DM (diabetes mellitus), type 2 (HCC) 1981 pilonidal cyst Hypercholesterolemia 02/13/2010 Thyroid activity decreased 02/13/2010 S/P vaginal hysterectomy 11/29/2012 Persistent mood disorder 01/15/1995 Mood di sorder Encounter for routine gyneco logical examination 10/28/2019 [facility] Headache, tension-type Migraine Hematuria Anemia Anxiety Depression Rash PONV (postoperative nausea a nd vomiting) scopolamine effective Urinary retention 12/21/2012 [facility], had bladd er tie up, Dr. Hilda Almonte. Gross hematuria 01/09/2020 Due to bladder c ancer, s/p resection. Bladder mass 01/17/2020 Added automatica lly from request for surgery [id number], diagnosed with high grade, noninvasive bladder cancer, resected. Disease of thyroid gland 02/13/2010 Hypothy roid. Sleep apnea CPAP Motion sickness Mixed hyperlipidemia 04/26/2012 Overview: Hyperlipidemia, on statin. Last Assessment & Plan: She had a bit of a rough start with the Crestor, but is now tolerating it well. Continue same. We will check labs periodically. Gastroesophageal reflux dise ase with esophagitis 06/27/2015 Duplicate entry Hypersomnolence 10/06/2012 Diagnosed with O SAS, started on CPAP. COLTON (obstructive sleep apnea) 11/11/2017 Se e home sleep study read by Dr. Cano. Was on CPAP, then lost weight and no longer needed to use it. GERD (gastroesophageal reflux disease) years ago Cancer (HCC) Bladder Autoimmune disease Psoriasis 1974 Family History Medical History Relation Name Comments Alcohol abuse Brother J Alcohol abuse Father E Alcoholism; Cancer Father E Migraines Father E Stroke Father E Stroke; Allergies Maternal Grandmother M Allergi es; Diabetes Maternal Grandmother M Diabete s mellitus; Migraines Mother Migraines Other Family history of Migraines; Thyroid cancer Sister Cancer, thyro id; Anesthesia problems Neg Hx Relation Name Status Comments Brother J Father E Maternal Grandmother M Mother Alive Other Sister Social History Tobacco Use Types Packs/Day Years Used Date Smoking Tobacco: Former Cigarettes 1 15.8 0 02/20/1974 - 05/31/1984 Smokeless Tobacco: Never Alcohol Use Standard Drinks/Week Comments Yes 0 (1 standard drink = 0.6 oz pur e alcohol) daily 1 shot AUDIT-C Answer Date Recorded Q1: How often do you have a drink containing alc ohol? 2-4 times a month 03/20/2023 Q2: How many drinks containi ng alcohol do you have on a typical day when you are drinking? 1 or 2 03/20/2023 Q3: How often do you have si x or more drinks on one occasion? Never 03/20/2023 PHQ-2 Answer Date Recorded PHQ-2 Total Score (If total score is 3 or more points, staff should administer the PHQ-9) 1 10/16/2023 PHQ-9 Answer Date Recorded PHQ-9 Total Score 5 10/16/2023 Personal Safety Answer Date Recorded Have you ever been in or are you currently in a harmful physical or emotional relationship or is someone making you feel afraid or unsafe? 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 fi le Obstetrics History Para Term AB IAB SAB Ectopic Multiple Livin g Live Births 2 2 2 Date Outcome GA Total Labor Labor/2nd/3rd Weight Sex Type Anes PTL Rissa A1 A5 Name Clin Term Term Last Filed Vital Signs Vital Sign Reading Time Taken Comments Blood Pressure 122/82 07/22/2024 2:30 PM [employer] Pulse 89 07/22/2024 2:30 PM [employer] Temperature 36.6 C (97.8 F) 07/22/2024 2:30 PM [employer] Respiratory Rate 16 07/22/2024 2:30 PM [employer] Oxygen Saturation 95% 07/22/2024 2:30 PM [employer] Inhaled Oxygen Concentration - - Weight 62.7 kg (138 lb 3.2 oz) 07/22/2024 2:30 P M [employer] Height 154.9 cm (5' 0.98 ) 07/22/2024 2:30 PM CS T Body Mass Index 26.13 07/22/2024 2:30 PM [employer] Plan of Treatment Health Maintenance Due Date Last Done Comments Meningococcal B Vaccine (3 o f 5 - Increased Risk Bexsero 3-dose series) 09/04/2022 04/25/2022, 03/07/2022 Albumin Creatinine Ratio, Urine 11/11/2022 11/11/2021, 11/22/2020, 11/15/2014, Additional history exists Osteoporosis Screening-Bone Density Scan 02/14/2024 02/13/2022 Lipid Panel 03/24/2024 03/24/2023, 11/06, 05/10/2019, Additional history exists eGFR 03/24/2024 03/24/2023, 11/2021, 11/22/2020, Additional history exists Hemoglobin A1C 04/15/2024 10/14/2023, 04/08, 03/24/2023, Additional history exists Well Visit 65+ 04/16/2024 04/16/2023, 02/2022, 11/01/2020, Additional history exists Covid-19 Vaccine (2023-2 5 season) 2024 02/19/2024, 03/06/2023, 03/07/2022, Additional history exists Depression Screening 10/15/2024 10/16/2023, 10/16/2023, 04/16/2023, Additional history exists Foot Exam 10/15/2024 10/16/2023, 02/2023, 05/12/2022, Additional history exists Dilated Eye Exam 05/19/2025 05/19/2024, , 09/07/2020, Additional history exists Breast Cancer Screening-Mammogram 05/27/2025 05/27/2024, 05/13/2023, 05/12/2022, Additional history exists Colon Cancer Screening-Colonoscopy 06/15/2025 06/15/2015 Fall Risk Assessment 07/22/2025 07/22/2024, 04/16/2023, 03/20/2023, Additional history exists DTaP/Tdap/Td Vaccine (3 - Td or Tdap) 04/25/2032 04/25/2022, 01/28/2012, 12/13/2001 Hepatitis C Screening Completed 10/27/2012 Colon Cancer Screening-CT Colonography Discontinued 06/15/2015 Colon Cancer Screening-DNA Stool Discontinued 06/15/19 16 Colon Cancer Screening-FIT Discontinued 06/15/2015 Colon Cancer Screening-Sigmoidoscopy Discontinued 06/15/2015 Hepatitis B Screening Completed 11/11/2017 , 11/11/2017, 12/13/2001, Additional history exists Zoster Vaccine Completed 04/14/2019, 11/07, 06/19/2008, Additional history exists Pneumococcal vaccine 65+ Completed 024, 05/21/2020, 04/12/2015, Additional history exists Influenza Vaccine Completed 04/03/2024, , 03/07/2022, Additional history exists Procedures Procedure Name Priority Date/Time Associated Diagnosis Comments CT UROGRAM Schedule Routine, Read Routine (OP Routine) 06/03/2024 12:43 PM SUPERVISOR WALL MIRROR DEPARTMENT Malignant neoplasm of urinary bladder, unspecified site (HCC) POCT CREATININE - DEVICE Routine 06/03/2024 11:53 AM SUPERVISOR WALL MIRROR DEPARTMENT SCREENING MAMMOGRAM BILATERAL W BERT Schedule Routine, Read Routine (OP Routine) 05/27/2024 1:24 PM SUPERVISOR WALL MIRROR DEPARTMENT Screening mammogram, encounter for CYTOLOGY Routine 05/20/2024 11:12 AM SUPERVISOR WALL MIRROR DEPARTMENT Malignant neoplasm of urinary bladder, unspecified site (HCC) HM DIABETES EYE EXAM Routine 05/19/2024 8:33 AM SUPERVISOR WALL MIRROR DEPARTMENT HEMOGLOBIN A1C Routine 10/14/2023 12:03 PM CDT Type 2 diabetes mellitus without complication, without long-term current use of insulin (HCC) COMPREHENSIVE METABOLIC PANEL Routine 03/24/2023 10:19 AM CDT Type 2 diabetes mellitus without complication, without long-term current use of insulin (HCC) LIPID PANEL Routine 03/24/2023 10:19 AM CDT Hyperlipidemia associated with type 2 diabetes mellitus (HCC) HM DEXA SCAN Routine 02/13/2022 ALBUMIN CREATININE RATIO, URINE Routine 11/11/2021 8:55 AM CDT HM COLONOSCOPY Routine 06/15/2015 HEPATITIS C SCREENING Routine 10/27/2012 from Last 3 Months or Most Recently Relevant to Health Maintenance Results * CT Urogram WO 3D (06/03/2024 12:43 PM SUPERVISOR WALL MIRROR DEPARTMENT) Anatomical Region Laterality Modality Body N/A Computed Tomogra phy 06/03/2024 12:5 3 PM SUPERVISOR WALL MIRROR DEPARTMENT Impressions 06/03/2024 12:53 PM SUPERVISOR WALL MIRROR DEPARTMENT 1. No suspicious urothelial lesion Electronically signed by: Noemy Ackerman M.D. Narrative 06/03/2024 12:53 PM SUPERVISOR WALL MIRROR DEPARTMENT EXAMINATION: CT UROGRAPHY WITH AND WITHOUT CONTRAST HISTORY: Bladder cancer status post transurethral resection and BCG TECHNIQUE: CT urography of the abdomen and pelvis was performed prior to and following the uneventful intravenous administration of 120 mL Optiray 350 in the combined nephrographic and excretory phases according to a split bolus protocol. COMPARISON: 09/05/2022 FINDINGS: UROGRAPHIC FINDINGS: Right Kidney: Simple appearing right upper pole renal cyst. No suspicious renal or urothelial lesion. No nephrolithiasis. Left Kidney: Mild left medial renal scarring. No suspicious left renal or urothelial lesion. No nephrolithiasis. Bladder: No abnormal wall thickening or mass NON-UROGRAPHIC FINDINGS: Large hiatal hernia. Severe multivessel coronary artery calcifications. 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 Atherosclerotic calcification of the aortoiliac system without abdominal aortic aneurysm. Tiny cysts in the liver appear unchanged. Degenerative changes in the spine without focally suspicious osseous lesion. Unchanged sclerotic lesion in L3 likely reflective of bone island. Procedure Note Noemy Ackerman MD - 06/03/2024 EXAMINATION: CT UROGRAPHY WITH AND WITHOUT CONTRAST HISTORY: Bladder cancer status post transurethral resection and BCG TECHNIQUE: CT urography of the abdomen and pelvis was performed prior to and following the uneventful intravenous administration of 120 mL Optiray 350 in the combined nephrographic and excretory phases according to a split bolus protocol. COMPARISON: 09/05/2022 FINDINGS: UROGRAPHIC FINDINGS: Right Kidney: Simple appearing right upper pole renal cyst. No suspicious renal or urothelial lesion. No nephrolithiasis. Left Kidney: Mild left medial renal scarring. No suspicious left renal or urothelial lesion. No nephrolithiasis. Bladder: No abnormal wall thickening or mass NON-UROGRAPHIC FINDINGS: Large hiatal hernia. Severe multivessel coronary artery calcifications. 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 Atherosclerotic calcification of the aortoiliac system without abdominal aortic aneurysm. Tiny cysts in the liver appear unchanged. Degenerative changes in the spine without focally suspicious osseous lesion. Unchanged sclerotic lesion in L3 likely reflective of bone island. IMPRESSION: 1. No suspicious urothelial lesion Electronically signed by: Noemy Ackerman M.D. Lizeth Hampton MD IMG CT PROCEDURES Final Result * POCT creatinine (06/03/2024 11:53 AM SUPERVISOR WALL MIRROR DEPARTMENT) Creatinine POC 0.8 0.6 - 1.1 mg/dL Blood 06/03/2024 11:5 3 AM SUPERVISOR WALL MIRR[employer] DEPARTMENT 06/03/2024 11:53 AM SUPERVISOR WALL MIRROR DEPARTMENT Aamir Middleton MD LAB POCT ORDERABLES - DEVICE Final Result [facility] Department [place] [address] * Screening Mammogram Bilateral W Bert (05/27/2024 1:24 PM SUPERVISOR WALL MIRROR DEPARTMENT) Anatomical Region Laterality Modality Breast Bilateral Mammography Impressions 05/27/2024 1:37 PM SUPERVISOR WALL MIRROR DEPARTMENT BI-RADS ATLAS category (overall): 1 - Negative There is no mammographic evidence of malignancy. A 1 year screening mammogram is recommended. The patient has been or will be contacted. We recommend annual screening mammography for women at average risk of breast cancer beginning at age 40, based on guidelines of the [employer] (ACR Practice Parameter for the Performance of Screening and Diagnostic Mammography) and [employer]. For women with and elevated risk of breast cancer, please refer to the ACR Practice Parameter for specific screening recommendations. The patient will be entered into a reminder system with a target due date of 1 year for her next screening exam. Narrative 05/27/2024 1:37 PM SUPERVISOR WALL MIRROR DEPARTMENT Screening Mammogram Bilateral W Bert: 05/27/24 The study was acquired using full field digital technology and interpreted from soft copy. 2D digital mammographic views, as well as 3D digital tomosynthesis were performed in the CC and MLO projections. This study was resulted using Computer-Aided Detection (CAD). CLINICAL: Screening mammogram, encounter for. No relevant medical history has been documented for this patient. No known family history of breast cancer. No comparisons were made when reading this study. BREAST TISSUE: There are scattered areas of fibroglandular density. FINDINGS: No suspicious masses, suspicious calcifications, or other suspicious findings are seen within either breast. us Self Screening Mammogram IMG MAMMO PROCEDURES Fi nal Result * Cytology (05/20/2024 11:12 AM SUPERVISOR WALL MIRROR DEPARTMENT) Fluid (Urine, Voided (Cytology)) 05/20/2024 11:12 AM SUPERVISOR WALL MIRROR DEPARTMENT 05/20/2024 3:09 PM SUPERVISOR WALL MIRROR DEPARTMENT Narrative PATHOLOGY [facility] - 05/25/2024 9:35 AM SUPERVISOR WALL MIRROR DEPARTMENT EPIC results best viewed via link to PDF [facility] [place] [address] Note to Patients: This report may contain a detailed description of human tissue sent by a health care provider to the laboratory for pathologic evaluation. The content of this report is essential for diagnosis and may provide important critical findings. This information may be unfamiliar to patients to review without a medical professional present. It is advised that the patient review this report in the presence of a health care provider who can answer questions and explain the details. CYTOPATHOLOGY REPORT FINAL Patient Name: ROSARIO LEW Gender: F : 1955 (Age: 68) Address: [address] [place] [id number] [facility] #: [id number] Taken:05/20/2024 Received:05/20/2024 Reported: 05/25/2024 Patient Type: [facility] SPECIMEN Service: UNKNOWN Location: Physician(s): Lizeth Hampton M.D. FINAL DIAGNOSIS A. Urine, bladder, voided: - Negative for high-grade urothelial carcinoma Comments Urothelial cells and squamous cells present. sucr/05/25/2024 09:35 By this signature, I attest that the above diagnosis is based upon my personal examination of the slides(and/or other material indicated in the diagnosis). Mary Hernández M.D. Report Electronically Reviewed and Signed Out By Mary Hernández M.D. 05/25/2024 09:35:47 JACKIE Peck(ASCP) Gross Description A. Urine, bladder, voided: 80 ml pink fluid in CytoRich Red vial - 1 Pap stained Sure Path. (vo) Clinical Diagnosis and History The patient is a 68 year old female with malignant neoplasm of urinary bladder. REPORT IMAGES AND SCANNED DOCUMENTS, IF INCLUDED, ONLY VIEWABLE IN PDF VERSION OF REPORT The performance characteristics of some immunohistochemical stains, in-situ hybridization and fluorescence in-situ hybridization tests and immunophenotyping by flow cytometry cited in this report (if any) were determined by the Surgical Pathology and Flow Cytometry Departments at [facility] as part of an ongoing quality control specialist program and in compliance with federally mandated regulations drawn from the Clinical Laboratory Improvement Act of 1988 (CLIA '88). Some of these tests rely on the use of analyte specific reagents and are subject to specific labeling requirements by the US Food and Drug Administration. Such diagnostic tests may only be performed in a facility that is certified by the Department of Health and Human Services as a high complexity laboratory under CLIA '88. The FDA has determined that such clearance or approval is not necessary. This test is used for clinical purposes. It should not be regarded as investigational or for research. Nevertheless, federal rules concerning the medical use of analyte specific reagents require that the following disclaimer be attached to the report: This test was developed and its performance characteristics determined by the Surgical Pathology and Flow Cytometry Departments of [facility]. It has not been cleared or approved by the U. S. Food and Drug Administration. Lizeth Hampton MD LAB CYTOLOGY ORDERABLES Final Result PATHOLOGY [facility] 3rd Floor [place], [place] [phone] * DIABETES EYE EXAM (05/19/2024 8:33 AM SUPERVISOR WALL MIRROR DEPARTMENT) Pathologist [facility] SCRIBED DIABETIC DILATED EYE EXAM Normal [facility] Provider HEALTH MAINTENANCE Final Result * (ABNORMAL) Hemoglobin A1c (10/14/2023 12:03 PM CDT) Pathologist [facility] Hgb A1C 6.6(H) <5.7 % of total Hgb [facility] Comment: For someone without known diabetes, a hemoglobin A1c value of 6.5% or greater indicates that they may have diabetes and this should be confirmed with a follow-up test. For someone with known diabetes, a value <7% indicates that their diabetes is well controlled and a value greater than or equal to 7% indicates suboptimal control. A1c targets should be individualized based on duration of diabetes, age, comorbid conditions, and other considerations. Currently, no consensus exists regarding use of hemoglobin A1c for diagnosis of diabetes for children. This test was performed on the Anne Marie jemma c503 platform. Effective 08/24/23, a change in test platforms from the Garcia Caseworker Intake to the Anne Marie jemma c503 may have shifted HbA1c results compared to historical results. Based on laboratory validation testing conducted at [facility], the Anne Marie platform relative to the Garcia platform had an average increase in HbA1c value of < or = 0.3%. This difference is within accepted variability established by the National Glycohemoglobin Standardization Program. Note that not all individuals will have had a shift in their results and direct comparisons between historical and current results for testing conducted on different platforms is not recommended. Blood 10/14/2023 12:0 3 PM CDT 10/14/2023 12:04 PM CDT us Aamir Middleton MD LAB BLOOD ORDERABLES Final Re sult [facility] [address] [place] [address] * (ABNORMAL) Lipid panel (03/24/2023 10:19 AM CDT) Cholesterol 201(H) <200 mg/dL [facility] HDL 56 > OR = 50 mg/dL [facility] Triglycerides 161(H) <150 mg/dL [facility] LDL 117(H) mg/dL (calc) [facility] Comment: Reference range: <100 Desirable range <100 mg/dL for primary prevention; <70 mg/dL for patients with CHD or diabetic patients with > or = 2 CHD risk factors. LDL-C is now calculated using the Sedrick-Garcia calculation, which is a validated novel method providing better accuracy than the Friedewald equation in the estimation of LDL-C. Sedrick HOLLAND et al. AWAIS. 2013;310(19): 8260-4074 (http://education.Agistics.[employer]/faq/KCU628) Chol/HDL ratio 3.6 <5.0 (calc) [facility]alita Alfaro Non-HDL, (LDL+VLDL) 145(H) <130 mg/dL (calc) [facility] Comment: For patients with diabetes plus 1 major ASCVD risk factor, treating to a non-HDL-C goal of <100 mg/dL (LDL-C of <70 mg/dL) is considered a therapeutic option. Blood 03/24/2023 10:1 9 AM CDT 03/24/2023 10:19 AM CDT Narrative [facility] - 03/26/2023 12:49 AM CDT PATIENT NOT FASTING FASTING:NO FASTING: NO us Aamir Middleton MD LAB BLOOD ORDERABLES Final Re sult [facility] Alfar[facility] [address] [place] [address] * Comprehensive metabolic panel (03/24/2023 10:19 AM CDT) Pathologist [facility] Glucose 130 65 - 139 mg/dL [facility] Team[facility]ru[facility]alita Alfaro Comment: Non-fasting reference interval BUN 20 7 - 25 mg/dL [facility]riela M[facility] Solar[facility]alita Alfaro Creatinine 0.89 0.50 - 1.05 mg/dL [facility] M[facility] SolarLalita Alfaro eGFR 71 > OR = 60 mL/min/1.7 3m2 Gabriela [facility]ru[facility]alita Alfaro BUN/creat ratio SEE NOTE: (calc) [facility] Alfaro Comment: Not Reported: BUN and Creatinine are within reference range. Sodium 136 135 - 146 mmol/L [facility] Potassium, pl 4.7 3.5 - 5.3 mmol/L [facility] MendezVeren[facility] SolarLalita Alfaro Chloride 101 98 - 110 mmol/L Gabriela MendezVeren[facility] SolarLalita Alfaro CO2 26 20 - 32 mmol/L [facility] M[facility]-Lalita Alfaro Calcium 9.5 8.6 - 10.4 mg/dL [facility] Protein, sr 6.9 6.1 - 8.1 g/dL [facility] M[facility]Lal[facility] Alfaro Albumin 4.2 3.6 - 5.1 g/dL [facility] M[facility]Lal[facility] Alfaro GLOBULIN 2.7 1.9 - 3.7 g/dL (calc) [facility] Alb/glob ratio 1.6 1.0 - 2.5 (calc) [facility] Bilirubin, total 0.3 0.2 - 1.2 mg/dL Gabriela [facility]ru[facility]alita Alfaro Alk phos 76 37 - 153 U/L [facility] Alfaro AST 17 10 - 35 U/L [facility] ALT (SGPT) 10 6 - 29 U/L [facility] Al[facility] Blood 03/24/2023 10:1 9 AM CDT 03/24/2023 10:19 AM CDT Narrative [facility] - 03/26/2023 12:49 AM CDT PATIENT NOT FASTING FASTING:NO FASTING: NO Aamir Middleton MD LAB BLOOD ORDERABLES Final Re sult [facility] [address] [place] [address] * DEXA SCAN (02/13/2022) Scribed Deca Scan Abnormal Impressions Aamir Middleton MD - 02/13/2022 Low bone mass, lumbar spine T score -1.5, [facility] [place]. Narrative Aamir Middleton MD - 02/13/2022 See scanned report. Aamir Middleton MD HEALTH MAINTENANCE Final Resu lt * Albumin Creatinine Ratio, Urine (11/11/2021 8:55 AM CDT) Pathologist [facility] Creatinine, ur 111 20 - 275 mg/dL [facility] Microalbumin, ur 0.7 See Note: mg/dL [facility] Comment: Reference Range: Reference Range Not established Microalbumin/creat ratio 6 <30 mcg/mg creat [facility] Comment: The ADA defines abnormalities in albumin excretion as follows: Albuminuria Category Result (mcg/mg creatinine) Normal to Mildly increased <30 Moderately increased 30-299 Severely increased > OR = 300 The ADA recommends that at least two of three specimens collected within a 3-6 month period be abnormal before considering a patient to be within a diagnostic category. 11/11/2021 8:55 AM CDT 11/11/2021 8:57 AM CDT Narrative [facility] - 11/12/2021 12:35 PM CDT VARIFIED ALL INFO/THIS IS THE CORRECT ORDER FOR TODAY FASTING:YES FASTING: YES Aamir Middleton MD LAB URINE ORDERABLES Final Re sult [facility] [address] [address] * COLONOSCOPY (06/15/2015) Colonoscopy Normal J Luis Marques MD HEALTH MAINTENANCE Final Result * HEPATITIS C SCREENING (10/27/2012) HEP C Normal Comment:See scanned report. Historical Provider HEALTH MAINTENANCE Final Result from Last 3 Months or Most Recently Relevant to Health Maintenance Insurance [facility] PPO AET MEDICARE TNA MEDICARE [facility] Advance Directives For more information, please contact: [phone] Documents on File Type Date Recorded Patient Architect Manager Expl anation Advance Directives and Living Will 03/20/2023 9:35 AM ADVANCE DIRECTIVE 09/12/2020 1:00 PM Power of Office Lead-Medical Care Teams Silk Hanger Relationship Specialty Start Date End Date Aamir Middleton MD [address] [place] [address] PCP - General 09/05/16 Hilda Almonte MD [address] [place] [address] Consulting Physician Obstetrics and Gynecology 01/06/13 Issa Valencia MD [address] [place] [address] Consulting Physician Urology 04/09/20 Rod Pablo MD [address] [facility] [address] [place] [address] Consulting Physician Gastroenterology 05/21/20 Laron Casey MD [address] [place] [address] Consulting Physician Sleep Medicine 12/06/20 Landry Conklin MD [address] [place] [address] Consulting Physician Ophthalmology 10/30/21 Mamta Rondon MD [address] [place] [address] Consulting Physician Dermatology 02/12/23 Lizeth Hampton MD [address] [facility] [place] [address] Consulting Physician Urology 05/22/23
--- OUTSIDE RECORDS SUMMARY | 2024-08-15 16:02 | XMS_ITS | Encounter Summary ---
Author Organization [facility] Address [address] [place] [address] Phone Care Team Providers Care Soccer Referee Name Role Phone Aamir Middleton MD Primary Care Provider [phone] Hilda Almonte MD Unavailable [phone] Cornelio Alfaro MD Unavailable [phone] Issa Valencia MD Unavailable [phone] Rod Pablo MD Unavailable [phone] Laron Casey MD Unavailable Landry Conklin MD Unavailable [phone] Mamta Rondon MD Unavailable [phone] Lizeth Hampton MD Unavailable [phone] Encounter Details Date Type Department Care Team (Late st Contact Info) Description 06/22/2017 Orders Only [facility] [address] [place] [address] Aamir Middleton MD [address] [address] Social History Tobacco Use Types Packs/Day Years Used Date Smoking Tobacco: Former Smokeless Tobacco: Never Alcohol Use Standard Drinks/Week Comments Yes 0 (1 standard drink = 0.6 oz pur e alcohol) Comments Unknown Sex and Gender Information Value Date Recorded Sex Assigned at Not on file Legal Sex Female 6:48 AM CAP INSPECTOR Gender Identity Not on file Sexual Orientation Not on file documented as of this encounter Plan of Treatment Not on file documented as of this encounter Procedures Procedure Name Priority Date/Time Associated Diagnosis Comments SCAN - LABS 06/22/2017 11:13 AM CAP INSPECTOR documented in this encounter Results * SCAN - LABS (06/22/2017 11:13 AM CAP INSPECTOR) Aamir Middleton MD Final Result documented in this encounter Visit Diagnoses Not on filedocumented in this encounter Historical Medications * This list may reflect changes made after this encounter. guaiFENesin-pseud oephedrine (MUCINEX D) 600-60 mg per 12 hr tablet Take 1 tablet by mouth every 4 (four) hours as needed. 0 06/11/2017 06/22/2017 added in this encounter Additional Health Concerns Infection Onset Date Last Indicated Resolved Time COVID: Suspected 12/31/2019 12/31/2019 01/01/2020 8:24 PM CDT Respiratory Infection (ANI), contact + droplet Comment:Automatically added due to negative COVID-19 result. 01/01/2020 01/01/2020 01/15/2020 3:0 6 AM CDT COVID: Suspected 10/02/2022 10/02/2022 10/03/2022 3:05 AM CDT documented as of this encounter Care Teams Soccer Referee Relationship Specialty Start Date End Date Aamir Middleton MD [address] [place] [address] PCP - General 09/05/16 Hilda Almonte MD [address] [place] [address] Consulting Physician Obstetrics and Gynecology 01/06/13 Cornelio Alfaro MD [address] [place] [address] Consulting Physician Urology 01/28/20 08/24/23 Issa Valencia MD [address] [facility] [address] [place] [address] Consulting Physician Urology 04/09/20 Rod Pablo MD [address] [facility] [facility] [address] [place] [address] Consulting Physician Gastroenterology 05/21/20 Laron Casey MD [address] [place] [address] Consulting Physician Sleep Medicine 12/06/20 Landry Conklin MD [address] [facility] [address] [place] [address] Consulting Physician Ophthalmology 10/30/21 Mamta Rondon MD [address] [place] [address] Consulting Physician Dermatology 02/12/23 Lizeth Hampton MD [address] [facility] [place] [address] Consulting Physician Urology 05/22/23 documented as of this encounter
--- OUTSIDE RECORDS SUMMARY | 2024-08-15 16:02 | XMS_ITS | Patient Health Record ---
Author Organization [facility] Address [address] [facility] [address] [address] Care Team Providers Care Sorting Supervisor Name Role Phone Emi HANCOCK, Aamir Primary Care Provider Unavailab le Reason For Referral No Information Plan Of Treatment No Information Insurance Providers Payer Name Payer Address Payer Phone Subscriber Number Group Number Insured Name Patient Relationship to Insured Coverage Start Date Coverage End Date Blue Access Choice PPO E2 [address] [place] [address] [id number] AA null, null Unknown - patient's relationship to the insured is other than any listed
--- OUTSIDE RECORDS SUMMARY | 2024-08-15 16:02 | XMS_ITS ---
Author Organization [facility] [address] Address [address] [place] [address] Phone Care Team Providers Care Rn International Name Role Phone Aamir Middleton MD Primary Care Provider [phone] Hilda Almonte MD Unavailable [phone] Issa Valencia MD Unavailable [phone] Rod Pablo MD Unavailable [phone] Laron Casey MD Unavailable Landry Conklin MD Unavailable [phone] Mamta Rondon MD Unavailable [phone] Lizeth Hampton MD Unavailable Active Problems Problem Noted Date Diagnosed Date Aortic ejection murmur 07/22/2024 Assessment & Plan (07/22/2024 5:04 PM ART GILDER): New finding, uncertain cause or significance. She did have a stress echo about three years ago at [facility] that reported no major valvular abnormalities. We discussed the finding on today's exam and appropriate follow-up including echocardiogram and clinical re-evaluation. For now she wants to defer any additional evaluation. Epigastric fullness 02/06/2023 Overview (03/18/2023): Started after returning from [place], worse in past 2 weeks. Assessment & Plan (03/18/2023 4:34 PM CDT): She has epigastric bloating and early satiety. The cause of her symptoms is unclear. She will follow-up with the GI service at [facility]. Repeat upper endoscopy may be needed. Dyspnea on exertion 02/06/2023 Overview (03/18/2023): Started after returning from [place]. Assessment & Plan (04/16/2023 1:40 PM ART GILDER): Shortly after her visit in the office [...] exertion since returning from a stay in [place] about a month ago. She is fine [...] bone mass, lumbar spine T score -1.5, [facility]. Assessment & Plan (07/22/2024 3:38 PM ART GILDER): Chronic, diagnosed 2-3 years ago, currently managed with maintaining her vitamin-D level and calcium intake through diet. Unfortunately she has to take omeprazole because of a long segment of Barretts being treated by GI. This medication could affect her bone mineralization. She is scheduled for a follow-up bone density at [facility] next month and will call to discuss results. Assessment & Plan (04/16/2023 1:33 PM ART GILDER): She gets plenty of calcium in her diet and with a supplement taken at bedtime. Her vitamin-D intake is probably adequate, but there is no level on file which we ordered today. Herpes labialis 12/02/2021 Abnormal EKG 11/14/2021 Overview (11/14/2021): [facility], possibly normal for age. [...] metastasis. Assessment & Plan (07/22/2024 5:05 PM ART GILDER): Chronic, present for 2-3 years, probably asymptomatic [...] same. Assessment & Plan (04/16/2023 1:32 PM ART GILDER): She has some risks for coronary disease but denies having chest pain or pressure. She stays very active. She had a normal stress echo about a year ago at [facility]. She does take pravastatin. Lipids are reasonably [...] 03/24/2023 Assessment & Plan (05/12/2022 3:29 PM ART GILDER): On a chest CT done to evaluate [...] densities in the lower right breast on [facility] screening mammogram, additional views and ultrasound ordered. Assessment & Plan (05/09/2021 2:05 PM ART GILDER): She is due for follow-up ultrasound of the right breast and bilateral screening mammograms. She will get those done this afternoon. Assessment & Plan (05/21/2020 11:38 AM ART GILDER): She had a right lower breast abnormality [...] 05/20/2020 Overview (03/24/2023): Treated with BCG at [facility]. Multiple follow up cystoscopies including 03/20/2023: - Predominantly denuded urothelium, unremarkable - Non-specific chronic inflammation and fibrosis in the lamina propria - No evidence of in situ or invasive carcinoma - Muscularis propria not identified - Prior treatment related changes identified Assessment & Plan (07/22/2024 3:34 PM ART GILDER): Chronic, diagnosed 4-5 years ago, in remission [...] time. Assessment & Plan (04/16/2023 1:34 PM ART GILDER): She had a recurrence of her bladder tumor earlier this year that was resected. She is getting monthly chemotherapy for another six months or so. She seems to be tolerating it well, although it could be contributing to her anemia. Assessment & Plan (05/12/2022 3:30 PM ART GILDER): She had a follow-up cystoscopy this morning and everything looked good. She will keep her follow ups with Urology. Assessment & Plan (11/14/2021 2:21 PM CDT): She is due for one more BCG treatment. So far there has been no evidence of recurrence. She will keep her follow ups with Urology. Assessment & Plan (05/09/2021 2:08 PM ART GILDER): She has nearly completed her treatment phase, [...] keep her follow ups with Oncology at [place]. She takes azo for few days after each treatment to deal with the bladder spasms. She gets this [id number]. Assessment & Plan (06/02/2020 1:03 PM ART GILDER): She is doing well with BCG treatments which she is currently getting at [facility]. She has a little urinary discomfort after [...] infection in 2017. Followed by ENT at [facility]. Actinic keratosis 07/27/2015 Inflamed seborrheic keratosis 07/27/2015 Skin benign neoplasm 07/27/2015 Gastroesophageal reflux disease with esophagitis 06/27/2015 Overview (09/11/2016): GERD Assessment & Plan (07/22/2024 5:05 PM ART GILDER): Chronic, present for 10 or more years, associated with Barretts esophagus. She will be due for a follow-up EGD this year and [facility] In the meantime, continue omeprazole 20 mg daily. Assessment & Plan (03/18/2023 4:32 PM CDT): She noticed a recent increase in heartburn symptoms. She doubled the dose of omeprazole which helped. However, she still has epigastric bloating and early satiety. She will follow-up with the GI service at [facility]. Assessment & Plan (05/21/2020 11:36 AM ART GILDER): She has Bernstein's esophagitis and sees a GI doctor in [place] about every three years. She continues on omeprazole. Assessment & Plan (10/28/2019 1:18 PM CDT): She continues on omeprazole for acid reflux and a history of Bernstein's esophagus. Continue same. Refills sent. Assessment & Plan (06/12/2017 2:21 PM ART GILDER): She is on omeprazole for GE reflux [...] once a day. Follow-up with GI in [place]. EGD 08/16/2021: Long segment of Bernstein's (biopsied), large Hiatal Hernia, Rod Pablo MD, [facility]. Assessment & Plan (10/16/2023 1:39 PM CDT): [...] June. Assessment & Plan (05/02/2023 11:35 AM ART GILDER): She takes omeprazole. She has a follow-up with [facility] in a few months to re-evaluate [...] like to see Dr. Kamini Claros at [facility] so we will submit a consultation. Assessment & Plan (05/12/2022 3:28 PM ART GILDER): She continues on omeprazole. If she misses a dose, she can tell the difference. She had a follow-up EGD in August that showed a long segment of Bernstein's which was biopsied. She will keep her follow ups with GI at [facility]. Assessment & Plan (11/16/2021 10:36 AM CDT): She is being followed in [place] by GI. She had an upper endoscopy recently and will get us a copy. It showed persistent changes of Bernstein's. She has upper endoscopy about every two years. She denies difficulty or pain with swallowing Assessment & Plan (05/26/2021 4:42 PM ART GILDER): She takes omeprazole. She denies any new symptoms, but she might be due for a follow-up EGD. The last one we have on file is from five years ago. There was no dysplasia at that time. There was a long segment of Bernstein's. She may have had one in the interim in [place]. She will check with her GI doctors. [...] 10/05/2023 Assessment & Plan (04/16/2023 1:35 PM ART GILDER): She has a moderate microcytic anemia of [...] monitor. Assessment & Plan (07/22/2024 3:34 PM ART GILDER): Chronic, present for many years, controlled with [...] Psoriasis Assessment & Plan (05/12/2022 3:32 PM ART GILDER): She has mild patches of psoriasis that come and go. She applies triamcinolone ointment as needed. We sent in a refill. Hyperlipidemia associated with type 2 diabetes cherry lynch 04/26/2012 Overview (11/01/2017): Hyperlipidemia, on statin. Assessment & Plan (07/22/2024 3:34 PM ART GILDER): Chronic, controlled on pravastatin 20 mg daily. Continue same. Assessment & Plan (10/16/2023 1:39 PM CDT): Chronic, controlled. She takes pravastatin and is tolerating it well. We will check lipids before her next visit in six months. Assessment & Plan (04/16/2023 1:32 PM ART GILDER): Continue pravastatin. Assessment & Plan (05/12/2022 3:30 PM ART GILDER): She is tolerating generic Pravachol. Continue same. We will check fasting labs before her next visit in about 11 months. Assessment & Plan (11/14/2021 2:20 PM CDT): LDL is still slightly elevated despite being on pravastatin. We discussed possibly changing to a more potent statin such as atorvastatin or rosuvastatin, and she will read about them. Assessment & Plan (05/09/2021 2:07 PM ART GILDER): She is on generic Pravachol, tolerating well. We will check lipids before her next follow-up in six months. Assessment & Plan (11/01/2020 10:06 AM CDT): She takes generic Pravachol. We will check a follow-up lipid profile. Assessment & Plan (10/28/2019 1:18 PM CDT): She is on pravastatin, tolerating well. Cardiovascular risk appears to be controlled. Assessment & Plan (07/03/2019 4:33 PM ART GILDER): She had another cholesterol panel checked after [...] periodically. Assessment & Plan (06/12/2017 2:20 PM ART GILDER): Status of her lipids is unknown. I have minimal labs available to review. Will get a follow-up lipid panel. She does take the Zocor. Continue same. Follow up in six months. Type 2 diabetes mellitus without complication Overview (09/10/2016): Diabetes mellitus Assessment & Plan (07/22/2024 3:35 PM ART GILDER): Chronic, present for 10 or more years, controlled on a low dose of metformin 500 mg twice daily. Continue same. Follow-up labs can be done now or when she finds her new provider in [place]. Assessment & Plan (10/16/2023 1:43 PM CDT): [...] 10/14/2023 Assessment & Plan (04/16/2023 1:36 PM ART GILDER): She does not check blood sugars at [...] 03/24/2023 Assessment & Plan (05/12/2022 3:33 PM ART GILDER): Diabetic control generally is very good. She [...] 11/11/2021 Assessment & Plan (05/09/2021 2:09 PM ART GILDER): She is due for a hemoglobin A1c. [...] needed. Assessment & Plan (06/02/2020 1:02 PM ART GILDER): Fasting blood sugars are generally around 125 [...] so. Assessment & Plan (07/03/2019 4:36 PM ART GILDER): Diabetes appears to be well controlled. She [...] time. Assessment & Plan (05/17/2018 5:12 PM ART GILDER): Blood sugars are in a good range. [...] months. Assessment & Plan (06/12/2017 2:20 PM ART GILDER): She is not checking blood sugars at home. We will get her a glucometer so she can do that. I do not have a hemoglobin A1c on file, so she will get that drawn. She prefers to have them done at her place of employment which is the [facility]. She will see an eye doctor annually. Follow-up here in about six months. Atypical migraine 03/22/2010 Anxiety 02/13/2010 Motion sickness 12/06/2009 Assessment & Plan (11/01/2020 10:05 AM CDT): She needed a refill of scopalamine patch which she uses for motion sickness on trips. Assessment & Plan (06/02/2020 1:02 PM ART GILDER): She plans to go boating in [place] this winter and needs scopalamine to prevent motion sickness. We sent in a refill. Acquired hypothyroidism 01/07/2008 Overview (11/16/2021): She is on a stable dose of replacement. Assessment & Plan (07/22/2024 3:32 PM ART GILDER): Chronic, present for 15-20 years, controlled on levothyroxine 100 mcg daily. Continue same. Assessment & Plan (04/16/2023 1:30 PM ART GILDER): She is on a stable dose of [...] soon. Assessment & Plan (05/29/2022 8:33 AM ART GILDER): She is on a stable dose of [...] 11/11/2021 Assessment & Plan (05/09/2021 2:06 PM ART GILDER): She is on a stable dose of [...] medication. Assessment & Plan (07/22/2024 5:07 PM ART GILDER): Chronic, present for decades, she reports symptoms [...] needed. Assessment & Plan (04/16/2023 1:36 PM ART GILDER): She is doing well on Celexa 10 mg every morning. Continue same. Assessment & Plan (05/12/2022 3:31 PM ART GILDER): She says her mood is good on her current dose of Wellbutrin XL 150 mg daily and Celexa 10 mg nightly. She says single agent therapy does not work for her. Continue same. Assessment & Plan (11/14/2021 2:21 PM CDT): Her mood is good. She will continue citalopram and bupropion. Assessment & Plan (05/09/2021 2:09 PM ART GILDER): Her mood is good. She is somewhat [...] early next. History of tobacco use 12/06/1974 Current Treatment and Therapy Plans Intravesicular gemCITabine / DOCEtaxel - Maintenance - 28 Day Cycles - Bladder* Plan Start Date:12/03/2022 Plan Provider:Lizeth Hampton MD Linked Problems Malignant neoplasm of urinar y bladder, unspecified site (HCC) Treatment Medications DOCEtaxel (TAXOTERE) intrave sical bladder installation (vial 10 mg/ml)DOCEtaxel (TAXOTERE) intravesical bladder instillation (vial 20mg/ml)gemcitabine chemo bladder instillation (QS 50 mL bag) (using 100 mg/mL gemcitabine) (J9196) Past Treatment and Therapy Plans Oncology Chemotherapy Treatment Plan Name Start Date Discontinue Date Treatment Medications Discontinue Reason Plan Provider Cycles Intravesicular gemCITabine / DOCEtaxel Weekly x 6 - Bladder 3 12/03/2022 DOCEtaxel (TAXOTERE) intravesical bladder instillation (vial 20mg/ml)gemcit abine chemo bladder instillation (QS 50 mL bag) (using 100 mg/mL gemcitabine) (J9196) Therapy Complete Issa Valencia MD 1 of 1 cycle started Lifetime Dose Tracking * Chemical Lifetime Dose Automatic Entry Manual Entr y DLP 2,721 mGycm 2,721 mGycm 0 mGycm Resolved Problems Problem Noted Date Diagnosed Date Resolved Date Bladder mass 01/17/2020 05/20/2020 Overview (05/20/2020): Added automatically from request for surgery [id number], diagnosed with high grade, noninvasive bladder cancer, resected. Gross hematuria 01/09/2020 05/20/2020 Overview (05/20/2020): Due to bladder cancer, s/p resection. Assessment & Plan (01/22/2020 10:49 AM CDT): She was in the [place] last week and had a great time. [...] gyneco logical examination 10/28/2019 10/28/2019 Overview (10/28/2019): [facility] (obstructive sleep apnea) 11/11/2017 03/18/2023 Overview (03/18/2023): See home sleep study read by Dr. Cano. Was on CPAP, then lost weight and no longer needed to use it. Assessment & Plan (05/09/2021 2:08 PM ART GILDER): She is now on CPAP. Sees Dr. Laron Casey at [facility]. She thinks there has been improvement in her daytime alertness. Assessment & Plan (05/21/2020 11:35 AM ART GILDER): She finally went to see Dr. Cano and got started on CPAP. She is very pleased with the results. Continue same. Assessment & Plan (06/22/2019 5:23 PM ART GILDER): She had a sleep study about two [...] months. Assessment & Plan (06/12/2017 2:19 PM ART GILDER): She is feeling very well. She has adjusted the doses of her medications and is tolerating them well. Continue same. Refills will be provided.
--- OUTSIDE RECORDS SUMMARY | 2024-08-15 16:02 | XMS_ITS | Referral Summary ---
Author Organization [facility] [address] Address [address] [place] [address] Phone Care Team Providers Care Bariatric Program Coordinator Name Role Phone Aamir Middleton MD Primary Care Provider [phone] Hilda Almonte MD Unavailable [phone] Issa Valencia MD Unavailable [phone] Aurelia Pablo MD Unavailable Laron Casey MD Unavailable Landry Conklin MD Unavailable [phone] Mamta Rondon MD Unavailable [phone] Lizeth Hampton MD Unavailable Encounters Date Type Department Care Team Description 07/28/2024 Telephone [facility] [address] [place] [phone] Aamir Middleton MD 07/22/2024 2:30 PM HYDROLOGICAL TECHNICAL OFFICER Office Visit [facility] [address] [place] [address] Aamir Middleton MD Type 2 diabetes mellitus [...] ejection murmur; Low bone density 06/29/2024 Telephone [facility] Surgery [address] [facility] [address] Building, [address] [place] [address] Lizeth Hampton MD 06/03/2024 11:36 AM HYDROLOGICAL TECHNICAL OFFICER - 06/03/2024 11:59 PM HYDROLOGICAL TECHNICAL OFFICER Hospital Encounter [facility] [address] [place] [id number] Malignant neoplasm of urinary bladder, unspecified site (HCC) Discharge Disposition: Discharge to home or self care 05/27/2024 12:59 PM HYDROLOGICAL TECHNICAL OFFICER - 05/27/2024 11:59 PM HYDROLOGICAL TECHNICAL OFFICER Hospital Encounter [facility] [address] [place] [address] Screening mammogram, encounter for Discharge Disposition: Discharge to home or self care 05/20/2024 11:12 AM HYDROLOGICAL TECHNICAL OFFICER - 05/20/2024 11:59 PM [facility] Hospital Encounter [facility] PATHOLOGY [address] [facility] 3rd [place] [address] Malignant neoplasm of urinary bladder, unspecified site (HCC) Discharge Disposition: Discharge to home or self care 05/20/2024 11:00 AM HYDROLOGICAL TECHNICAL OFFICER Office Visit [facility] Urology [address] [facility] [address] [place] [phone] Lizeth Hampton MD Malignant neoplasm of urinary bladder, unspecified site (HCC) (Primary Dx) from Last 3 Months Allergies Active Allergy Reactions Criticality Noted Date Comments Codeine Headache Low 05/31/2018 Latex Rash,Cough Medium 05/31/2018 Nickel Rash,Redness Medium 05/31/2018 Penicillin G Rash Medium Medications levothyroxine (SYNTHROID) 100 mcg tabletIndications :Acquired hypothyroidism Take 1 tablet (100 mcg total) 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 90 tablet 04/22/20 Active buPROPion XL (WELLBUTRIN XL) 150 mg 24 hr tabletIndications :Persistent mood disorder Take 1 tablet (150 mg total) by mouth every morning 90 tablet 1 04/25/20 24 Active estrogens, conjugated, (PREMARIN) vaginal creamIndications: Malignant neoplasm of urinary bladder, unspecified site (HCC) Insert 0.5 g into the vagina 3 (three) times a week 30 g 3 05/20/20 24 026 Active metFORMIN (GLUCOPHAGE) 500 mg tabletIndications :Type 2 diabetes mellitus without complication, 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 She did have a stress echo about three years ago at [facility] that reported no major valvular abnormalities. We discussed the finding on today's exam and appropriate follow-up including echocardiogram and clinical re-evaluation. For now she wants to defer any additional evaluation. Epigastric fullness 02/06/2023 Overview (03/18/2023): Started after returning from [place], worse in past 2 weeks. Assessment & Plan (03/18/2023 4:34 PM CDT): She has epigastric bloating and early satiety. The cause of her symptoms is unclear. She will follow-up with the GI service at [facility]. Repeat upper endoscopy may be needed. Dyspnea on exertion 02/06/2023 Overview (03/18/2023): Started after returning from [place]. Assessment & Plan (04/16/2023 1:40 PM HYDROLOGICAL TECHNICAL OFFICER): Shortly after her visit in the office [...] exertion since returning from a stay in [place] about a month ago. She is fine [...] bone mass, lumbar spine T score -1.5, [facility]. Assessment & Plan (07/22/2024 3:38 PM HYDROLOGICAL TECHNICAL OFFICER): Chronic, diagnosed 2-3 years ago, currently managed with maintaining her vitamin-D level and calcium intake through diet. Unfortunately she has to take omeprazole because of a long segment of Barretts being treated by GI. This medication could affect her bone mineralization. She is scheduled for a follow-up bone density at [facility] next month and will call to discuss results. Assessment & Plan (04/16/2023 1:33 PM HYDROLOGICAL TECHNICAL OFFICER): She gets plenty of calcium in her diet and with a supplement taken at bedtime. Her vitamin-D intake is probably adequate, but there is no level on file which we ordered today. Herpes labialis 12/02/2021 Abnormal EKG 11/14/2021 Overview (11/14/2021): T-wave inversions in V[facility], possibly normal for [...] metastasis. Assessment & Plan (07/22/2024 5:05 PM HYDROLOGICAL TECHNICAL OFFICER): Chronic, present for 2-3 years, probably asymptomatic [...] same. Assessment & Plan (04/16/2023 1:32 PM HYDROLOGICAL TECHNICAL OFFICER): She has some risks for coronary disease but denies having chest pain or pressure. She stays very active. She had a normal stress echo about a year ago at [facility]. She does take pravastatin. Lipids are reasonably [...] 03/24/2023 Assessment & Plan (05/12/2022 3:29 PM HYDROLOGICAL TECHNICAL OFFICER): On a chest CT done to evaluate [...] densities in the lower right breast on O view, [facility] screening mammogram, additional views and ultrasound ordered. Assessment & Plan (05/09/2021 2:05 PM HYDROLOGICAL TECHNICAL OFFICER): She is due for follow-up ultrasound of the right breast and bilateral screening mammograms. She will get those done this afternoon. Assessment & Plan (05/21/2020 11:38 AM HYDROLOGICAL TECHNICAL OFFICER): She had a right lower breast abnormality [...] 0a(cTa, cN0, cM0) - Signed by Aamir Middleotn MD on 05/20/2020 Overview (03/24/2023): Treated with BCG at [facility]. Multiple follow up cystoscopies including 03/20/2023: - Predominantly denuded urothelium, unremarkable - Non-specific chronic inflammation and fibrosis in the lamina propria - No evidence of in situ or invasive carcinoma - Muscularis propria not identified - Prior treatment related changes identified Assessment & Plan (07/22/2024 3:34 PM HYDROLOGICAL TECHNICAL OFFICER): Chronic, diagnosed 4-5 years ago, in remission [...] time. Assessment & Plan (04/16/2023 1:34 PM HYDROLOGICAL TECHNICAL OFFICER): She had a recurrence of her bladder tumor earlier this year that was resected. She is getting monthly chemotherapy for another six months or so. She seems to be tolerating it well, although it could be contributing to her anemia. Assessment & Plan (05/12/2022 3:30 PM HYDROLOGICAL TECHNICAL OFFICER): She had a follow-up cystoscopy this morning and everything looked good. She will keep her follow ups with Urology. Assessment & Plan (11/14/2021 2:21 PM CDT): She is due for one more BCG treatment. So far there has been no evidence of recurrence. She will keep her follow ups with Urology. Assessment & Plan (05/09/2021 2:08 PM HYDROLOGICAL TECHNICAL OFFICER): She has nearly completed her treatment phase, [...] keep her follow ups with Oncology at [place]. She takes azo for few days after each treatment to deal with the bladder spasms. She gets this [id number]. Assessment & Plan (06/02/2020 1:03 PM HYDROLOGICAL TECHNICAL OFFICER): She is doing well with BCG treatments which she is currently getting at [facility]. She has a little urinary discomfort after [...] details lacking. Menopausal symptoms 10/28/2019 Overview (10/28/2019): [facility]. Jumper's knee of left side 10/28/2019 Overview (10/28/2019): [facility], details lacking. Sensorineural hearing loss (SNHL) of left ear Overview (05/20/2020): Developed after a severe ear infection in 2017. Followed by ENT at [facility]. Actinic keratosis 07/27/2015 Inflamed seborrheic keratosis 07/27/2015 Skin benign neoplasm 07/27/2015 Gastroesophageal reflux disease with esophagitis 06/27/2015 Overview (09/11/2016): GERD Assessment & Plan (07/22/2024 5:05 PM HYDROLOGICAL TECHNICAL OFFICER): Chronic, present for 10 or more years, associated with Barretts esophagus. She will be due for a follow-up EGD this year and [facility]. In the meantime, continue omeprazole 20 mg daily. Assessment & Plan (03/18/2023 4:32 PM CDT): She noticed a recent increase in heartburn symptoms. She doubled the dose of omeprazole which helped. However, she still has epigastric bloating and early satiety. She will follow-up with the GI service at [facility]. Assessment & Plan (05/21/2020 11:36 AM HYDROLOGICAL TECHNICAL OFFICER): She has Bernstein's esophagitis and sees a GI doctor in [place] about every three years. She continues on omeprazole. Assessment & Plan (10/28/2019 1:18 PM CDT): She continues on omeprazole for acid reflux and a history of Bernstein's esophagus. Continue same. Refills sent. Assessment & Plan (06/12/2017 2:21 PM HYDROLOGICAL TECHNICAL OFFICER): She is on omeprazole for GE reflux [...] once a day. Follow-up with GI in [place]. EGD 08/16/2021: Long segment of Bernstein's (biopsied), large Hiatal Hernia, Aurelia Pablo MD, [facility]. Assessment & Plan (10/16/2023 1:39 PM [...] June. Assessment & Plan (05/02/2023 11:35 AM HYDROLOGICAL TECHNICAL OFFICER): She takes omeprazole. She has a follow-up with [place] in a few months to re-evaluate [...] like to see Dr. Kamini Claros at [facility] so we will submit a consultation. Assessment & Plan (05/12/2022 3:28 PM HYDROLOGICAL TECHNICAL OFFICER): She continues on omeprazole. If she misses a dose, she can tell the difference. She had a follow-up EGD in August that showed a long segment of Bernstein's which was biopsied. She will keep her follow ups with GI at [facility]. Assessment & Plan (11/16/2021 10:36 AM CDT): She is being followed in [place] by GI. She had an upper endoscopy recently and will get us a copy. It showed persistent changes of Bernstein's. She has upper endoscopy about every two years. She denies difficulty or pain with swallowing Assessment & Plan (05/26/2021 4:42 PM HYDROLOGICAL TECHNICAL OFFICER): She takes omeprazole. She denies any new symptoms, but she might be due for a follow-up EGD. The last one we have on file is from five years ago. There was no dysplasia at that time. There was a long segment of Bernstein's. She may have had one in the interim in [place]. She will check with her GI doctors. [...] 10/05/2023 Assessment & Plan (04/16/2023 1:35 PM HYDROLOGICAL TECHNICAL OFFICER): She has a moderate microcytic anemia of [...] monitor. Assessment & Plan (07/22/2024 3:34 PM HYDROLOGICAL TECHNICAL OFFICER): Chronic, present for many years, controlled with [...] Psoriasis Assessment & Plan (05/12/2022 3:32 PM HYDROLOGICAL TECHNICAL OFFICER): She has mild patches of psoriasis that come and go. She applies triamcinolone ointment as needed. We sent in a refill. Hyperlipidemia associated with type 2 diabetes cherry lynch 04/26/2012 Overview (11/01/2017): Hyperlipidemia, on statin. Assessment & Plan (07/22/2024 3:34 PM HYDROLOGICAL TECHNICAL OFFICER): Chronic, controlled on pravastatin 20 mg daily. Continue same. Assessment & Plan (10/16/2023 1:39 PM CDT): Chronic, controlled. She takes pravastatin and is tolerating it well. We will check lipids before her next visit in six months. Assessment & Plan (04/16/2023 1:32 PM HYDROLOGICAL TECHNICAL OFFICER): Continue pravastatin. Assessment & Plan (05/12/2022 3:30 PM HYDROLOGICAL TECHNICAL OFFICER): She is tolerating generic Pravachol. Continue same. We will check fasting labs before her next visit in about 11 months. Assessment & Plan (11/14/2021 2:20 PM CDT): LDL is still slightly elevated despite being on pravastatin. We discussed possibly changing to a more potent statin such as atorvastatin or rosuvastatin, and she will read about them. Assessment & Plan (05/09/2021 2:07 PM HYDROLOGICAL TECHNICAL OFFICER): She is on generic Pravachol, tolerating well. We will check lipids before her next follow-up in six months. Assessment & Plan (11/01/2020 10:06 AM CDT): She takes generic Pravachol. We will check a follow-up lipid profile. Assessment & Plan (10/28/2019 1:18 PM CDT): She is on pravastatin, tolerating well. Cardiovascular risk appears to be controlled. Assessment & Plan (07/03/2019 4:33 PM HYDROLOGICAL TECHNICAL OFFICER): She had another cholesterol panel checked after [...] periodically. Assessment & Plan (06/12/2017 2:20 PM HYDROLOGICAL TECHNICAL OFFICER): Status of her lipids is unknown. I have minimal labs available to review. Will get a follow-up lipid panel. She does take the Zocor. Continue same. Follow up in six months. Type 2 diabetes mellitus without complication Overview (09/10/2016): Diabetes mellitus Assessment & Plan (07/22/2024 3:35 PM HYDROLOGICAL TECHNICAL OFFICER): Chronic, present for 10 or more years, controlled on a low dose of metformin 500 mg twice daily. Continue same. Follow-up labs can be done now or when she finds her new provider in [place]. Assessment & Plan (10/16/2023 1:43 PM CDT): [...] 10/14/2023 Assessment & Plan (04/16/2023 1:36 PM HYDROLOGICAL TECHNICAL OFFICER): She does not check blood sugars at [...] 03/24/2023 Assessment & Plan (05/12/2022 3:33 PM HYDROLOGICAL TECHNICAL OFFICER): Diabetic control generally is very good. She [...] 11/11/2021 Assessment & Plan (05/09/2021 2:09 PM HYDROLOGICAL TECHNICAL OFFICER): She is due for a hemoglobin A1c. [...] needed. Assessment & Plan (06/02/2020 1:02 PM HYDROLOGICAL TECHNICAL OFFICER): Fasting blood sugars are generally around 125 [...] so. Assessment & Plan (07/03/2019 4:36 PM HYDROLOGICAL TECHNICAL OFFICER): Diabetes appears to be well controlled. She [...] time. Assessment & Plan (05/17/2018 5:12 PM HYDROLOGICAL TECHNICAL OFFICER): Blood sugars are in a good range. [...] months. Assessment & Plan (06/12/2017 2:20 PM HYDROLOGICAL TECHNICAL OFFICER): She is not checking blood sugars at home. We will get her a glucometer so she can do that. I do not have a hemoglobin A1c on file, so she will get that drawn. She prefers to have them done at her place of employment which is the [facility]. She will see an eye doctor annually. Follow-up here in about six months. Atypical migraine 03/22/2010 Anxiety 02/13/2010 Motion sickness 12/06/2009 Assessment & Plan (11/01/2020 10:05 AM CDT): She needed a refill of scopalamine patch which she uses for motion sickness on trips. Assessment & Plan (06/02/2020 1:02 PM HYDROLOGICAL TECHNICAL OFFICER): She plans to go boating in [place] this winter and needs scopalamine to prevent motion sickness. We sent in a refill. Acquired hypothyroidism 01/07/2008 Overview (11/16/2021): She is on a stable dose of replacement. Assessment & Plan (07/22/2024 3:32 PM HYDROLOGICAL TECHNICAL OFFICER): Chronic, present for 15-20 years, controlled on levothyroxine 100 mcg daily. Continue same. Assessment & Plan (04/16/2023 1:30 PM HYDROLOGICAL TECHNICAL OFFICER): She is on a stable dose of [...] soon. Assessment & Plan (05/29/2022 8:33 AM HYDROLOGICAL TECHNICAL OFFICER): She is on a stable dose of [...] 11/11/2021 Assessment & Plan (05/09/2021 2:06 PM HYDROLOGICAL TECHNICAL OFFICER): She is on a stable dose of [...] medication. Assessment & Plan (07/22/2024 5:07 PM HYDROLOGICAL TECHNICAL OFFICER): Chronic, present for decades, she reports symptoms [...] needed. Assessment & Plan (04/16/2023 1:36 PM HYDROLOGICAL TECHNICAL OFFICER): She is doing well on Celexa 10 mg every morning. Continue same. Assessment & Plan (05/12/2022 3:31 PM HYDROLOGICAL TECHNICAL OFFICER): She says her mood is good on her current dose of Wellbutrin XL 150 mg daily and Celexa 10 mg nightly. She says single agent therapy does not work for her. Continue same. Assessment & Plan (11/14/2021 2:21 PM CDT): Her mood is good. She will continue citalopram and bupropion. Assessment & Plan (05/09/2021 2:09 PM HYDROLOGICAL TECHNICAL OFFICER): Her mood is good. She is somewhat [...] (05/20/2020): Added automatically from request for surgery [id number], diagnosed with high grade, noninvasive bladder cancer, resected. Gross hematuria 01/09/2020 05/20/2020 Overview (05/20/2020): Due to bladder cancer, s/p resection. Assessment & Plan (01/22/2020 10:49 AM CDT): She was in the [place] last week and had a great time. [...] gyneco logical examination 10/28/2019 10/28/2019 Overview (10/28/2019): [facility] [place] (obstructive sleep apnea) 11/11/2017 03/18/2023 Overview (03/18/2023): See home sleep study read by Dr. Cano. Was on CPAP, then lost weight and no longer needed to use it. Assessment & Plan (05/09/2021 2:08 PM HYDROLOGICAL TECHNICAL OFFICER): She is now on CPAP. Sees Dr. Laron Casey at [facility]. She thinks there has been improvement in her daytime alertness. Assessment & Plan (05/21/2020 11:35 AM HYDROLOGICAL TECHNICAL OFFICER): She finally went to see Dr. Cano and got started on CPAP. She is very pleased with the results. Continue same. Assessment & Plan (06/22/2019 5:23 PM HYDROLOGICAL TECHNICAL OFFICER): She had a sleep study about two [...] months. Assessment & Plan (06/12/2017 2:19 PM HYDROLOGICAL TECHNICAL OFFICER): She is feeling very well. She has adjusted the doses of her medications and is tolerating them well. Continue same. Refills will be provided. 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 fi le Last Filed Vital Signs Vital Sign Reading Time Taken Comments Blood Pressure 122/82 07/22/2024 2:30 PM HYDROLOGICAL TECHNICAL OFFICER Pulse 89 07/22/2024 2:30 PM HYDROLOGICAL TECHNICAL OFFICER Temperature 36.6 C (97.8 F) 07/22/2024 2:30 PM HYDROLOGICAL TECHNICAL OFFICER Respiratory Rate 16 07/22/2024 2:30 PM HYDROLOGICAL TECHNICAL OFFICER Oxygen Saturation 95% 07/22/2024 2:30 PM HYDROLOGICAL TECHNICAL OFFICER Inhaled Oxygen Concentration - - Weight 62.7 kg (138 lb 3.2 oz) 07/22/2024 2:30 P M HYDROLOGICAL TECHNICAL OFFICER Height 154.9 cm (5' 0.98 ) 07/22/2024 2:30 PM CS T Body Mass Index 26.13 07/22/2024 2:30 PM HYDROLOGICAL TECHNICAL OFFICER Plan of Treatment Not on file Procedures Procedure Name Priority Date/Time Associated Diagnosis Comments CT UROGRAM Schedule Routine, Read Routine (OP Routine) 06/03/2024 12:43 PM HYDROLOGICAL TECHNICAL OFFICER Malignant neoplasm of urinary bladder, unspecified site (HCC) POCT CREATININE - DEVICE Routine 06/03/2024 11:53 AM HYDROLOGICAL TECHNICAL OFFICER SCREENING MAMMOGRAM BILATERAL W BERT Schedule Routine, Read Routine (OP Routine) 05/27/2024 1:24 PM HYDROLOGICAL TECHNICAL OFFICER Screening mammogram, encounter for CYTOLOGY Routine 05/20/2024 11:12 AM HYDROLOGICAL TECHNICAL OFFICER Malignant neoplasm of urinary bladder, unspecified site (HCC) HM DIABETES EYE EXAM Routine 05/19/2024 8:33 AM HYDROLOGICAL TECHNICAL OFFICER HEMOGLOBIN A1C Routine 10/14/2023 12:03 PM CDT [...] CT Urogram WO 3D (06/03/2024 12:43 PM HYDROLOGICAL TECHNICAL OFFICER) Anatomical Region Laterality Modality Body N/A Computed Tomogra phy 06/03/2024 12:5 3 PM HYDROLOGICAL TECHNICAL OFFICER Impressions 06/03/2024 12:53 PM HYDROLOGICAL TECHNICAL OFFICER 1. No suspicious urothelial lesion Electronically signed by: Noemy Ackerman M.D. Narrative 06/03/2024 12:53 PM HYDROLOGICAL TECHNICAL OFFICER EXAMINATION: CT UROGRAPHY WITH AND WITHOUT CONTRAST [...] by: Noemy Ackerman M.D. Lizeth Hampton MD IM CT PROCEDURES Final Result * POCT creatinine (06/03/2024 11:53 AM HYDROLOGICAL TECHNICAL OFFICER) Creatinine POC 0.8 0.6 - 1.1 mg/dL Blood 06/03/2024 11:5 3 AM HYDROLOGICAL TECHNICAL OFFICER 06/03/2024 11:53 AM HYDROLOGICAL TECHNICAL OFFICER Aamir Middleton MD LAB POCT ORDERABLES - DEVICE Final Result [facility] [place] [address] * Screening Mammogram Bilateral W Bert (05/27/2024 1:24 PM HYDROLOGICAL TECHNICAL OFFICER) Anatomical Region Laterality Modality Breast Bilateral Mammography Impressions 05/27/2024 1:37 PM HYDROLOGICAL TECHNICAL OFFICER BI-RADS ATLAS category (overall): 1 - Negative There is no mammographic evidence of malignancy. A 1 year screening mammogram is recommended. The patient has been or will be contacted. We recommend annual screening mammography for women at average risk of breast cancer beginning at age 40, based on guidelines of the [employer] (ACR Practice Parameter for the Performance of Screening and Diagnostic Mammography) and [employer]. For women with and elevated risk of breast cancer, please refer to the ACR Practice Parameter for specific screening recommendations. The patient will be entered into a reminder system with a target due date of 1 year for her next screening exam. Narrative 05/27/2024 1:37 PM HYDROLOGICAL TECHNICAL OFFICER Screening Mammogram Bilateral W Bert: 05/27/24 The [...] nal Result * Cytology (05/20/2024 11:12 AM HYDROLOGICAL TECHNICAL OFFICER) Fluid (Urine, Voided (Cytology)) 05/20/2024 11:12 AM HYDROLOGICAL TECHNICAL OFFICER 05/20/2024 3:09 PM HYDROLOGICAL TECHNICAL OFFICER Narrative PATHOLOGY [facility] - 05/25/2024 9:35 AM HYDROLOGICAL TECHNICAL OFFICER EPIC results best viewed via link to PDF [facility] E[facility] [place] [address] Note to Patients: This report may contain [...] details. CYTOPATHOLOGY REPORT FINAL Patient Name: ROSARIO ROSADO Gender: F : 1955 (Age: 68) Address: [address] [place] [id number] Hospital #: [id number] Taken:05/20/2024 Received:05/20/2024 Reported: 05/25/2024 Patient Type: [facility] SPECIMEN Service: UNKNOWN Location: Physician(s): Lizeth Hampton [...] Surgical Pathology and Flow Cytometry Departments at [facility] as part of an ongoing quality technician fiberglass program and in compliance with federally mandated [...] Surgical Pathology and Flow Cytometry Departments of [facility]. It has not been cleared or approved by the U. S. Food and Drug Administration. Lizeth Hampton MD LAB CYTOLOGY ORDERABLES Final Result PATHOLOGY [facility] 3rd Floor [place], [place] [phone] * DIABETES EYE EXAM (05/19/2024 8:33 AM HYDROLOGICAL TECHNICAL OFFICER) SCRIBED DIABETIC DILATED EYE EXAM Normal [facility] Provider HEALTH MAINTENANCE Final Result * (ABNORMAL) Hemoglobin A1c (10/14/2023 12:03 PM CDT) Hgb A1C 6.6(H) <5.7 % of total Hgb [facility] Comment: For someone without known diabetes, [...] change in test platforms from the [employer] to the Anne Marie jemma [id number] may have shifted HbA1c results compared to historical results. Based on laboratory validation testing conducted at [employer], the Anne Marie platform relative to the [...] MD LAB BLOOD ORDERABLES Final Re sult [email or web address] [address] [place] [address] * (ABNORMAL) Lipid panel (03/24/2023 10:19 AM CDT) Cholesterol 201(H) <200 mg/dL Zhui XinLalita Alfaro HDL 56 > OR = 50 mg/dL Zhui XinLalita Alfaro Triglycerides 161(H) <150 mg/dL Zhui Xin jack Alfaro LDL 117(H) mg/dL (calc) Zhui XinLalita Alfaro Comment: Reference range: <100 Desirable range <100 mg/dL for primary prevention; <70 mg/dL for patients with CHD or diabetic patients with > or = 2 CHD risk factors. LDL-C is now calculated using the Sedrick-Jose calculation, which is a validated novel method providing better accuracy than the Friedewald equation in the estimation of LDL-C. Sedrick HOLLAND et al. AWAIS. 2013;310(19): 8413-2916 (http://education.[employer]/faq/PIM697) Chol/HDL ratio 3.6 <5.0 (calc) Zhui XinLalita Alfaro Non-HDL, (LDL+VLDL) 145(H) <130 mg/dL (calc) Zhui XinLalita Alfaro Comment: For patients with diabetes plus 1 major ASCVD risk factor, treating to a non-HDL-C goal of <100 mg/dL (LDL-C of <70 mg/dL) is considered a therapeutic option. Blood 03/24/2023 10:1 9 AM CDT 03/24/2023 10:19 AM CDT Narrative [facility] - 03/26/2023 12:49 AM CDT PATIENT NOT FASTING FASTING:NO FASTING: NO us Aamir Middleton MD LAB BLOOD ORDERABLES Final Re sult [facility] [address] [place] [address] * Comprehensive metabolic panel (03/24/2023 10:19 AM CDT) Pathologist [facility] Glucose 130 65 - 139 mg/dL Gabriela StreamStarLalita Alfaro Comment: Non-fasting reference interval BUN 20 7 - 25 mg/dL Gabriela StreamStarLalita Alfaro Creatinine 0.89 0.50 - 1.05 mg/dL Gabriela MendezTheravascLalita Alfaro eGFR 71 > OR = 60 mL/min/1.7 3m2 Gabriela StreamStarLalita Alfaro BUN/creat ratio SEE NOTE: (calc) Gabriela StreamStarLalita Alfaro Comment: Not Reported: BUN and Creatinine are within reference range. Sodium 136 135 - 146 mmol/L Gabriela StreamStarLalita Alfaro Potassium, pl 4.7 3.5 - 5.3 mmol/L Gabriela Undesk-Lalita Alfaro Chloride 101 98 - 110 mmol/L Gabriela Undesk-Lalita Alfaro CO2 26 20 - 32 mmol/L Gabriela Mendez-S jack Alfaro Calcium 9.5 8.6 - 10.4 mg/dL Gabriela Undesk-Lalita Alfaro Protein, sr 6.9 6.1 - 8.1 g/dL Gabriela Undesk-Lalita Alfaro Albumin 4.2 3.6 - 5.1 g/dL Gabriela Undesk-Lalita Alfaro GLOBULIN 2.7 1.9 - 3.7 g/dL (calc) Gabriela Undesk-Lalita Alfaro Alb/glob ratio 1.6 1.0 - 2.5 (calc) wesync[facility]tv-S jack Alfaro Bilirubin, total 0.3 0.2 - 1.2 mg/dL Gabriela Undesk-Lalita Alfaro Alk phos 76 37 - 153 U/L wesync.tv-Lalita santiago Dominic AST 17 10 - 35 U/L Zhui XinLalita Alfaro ALT (SGPT) 10 6 - 29 U/L Zhui XinLalita Alfaro Blood 03/24/2023 10:1 9 AM CDT 03/24/2023 10:19 AM CDT Narrative [facility] - 03/26/2023 12:49 AM CDT PATIENT NOT FASTING FASTING:NO FASTING: NO us Aamir Middleton MD LAB BLOOD ORDERABLES Final Re sult Performing Organization Address City/[facility]/ZIP Co de Phone Number [facility] [address] [place] [address] * DEXA SCAN (02/13/2022) Scribed Deca Scan Abnormal Impressions Aamir Middleton MD - 02/13/2022 Low bone mass, lumbar spine T score -1.5, [facility]. Aamir Díaz MD - 02/13/2022 See scanned report. us Aamir Middleton MD HEALTH MAINTENANCE Final Resu lt * Albumin Creatinine Ratio, Urine (11/11/2021 8:55 AM CDT) Pathologist [facility] Creatinine, ur 111 20 - 275 mg/dL [...] CORRECT ORDER FOR TODAY FASTING:YES FASTING: YES us Aamir Middleton MD LAB URINE ORDERABLES Final Re sult Performing Organization Address [facility]/ZIP Co de Phone Number [facility] [address] [address] * COLONOSCOPY (06/15/2015) Colonoscopy Normal J Luis Marques MD HEALTH MAINTENANCE Final Result * HEPATITIS C SCREENING (10/27/2012) HEP C Normal Comment:See scanned report. Historical Provider HEALTH MAINTENANCE Final Result from Last 3 Months or Most Recently Relevant to Health Maintenance Insurance [facility] PPO T MEDICARE AET[employer] MEDICARE [facility] Advance Directives For more information, please contact: [phone] Documents on File Type Date Recorded Patient Template Checker Expl anation Advance Directives and Living Will 03/20/2023 9:35 AM ADVANCE DIRECTIVE 09/12/2020 1:00 PM Power of Senior Research Manager-Medical Care Teams Bariatric Program Coordinator Relationship Specialty Start Date End Date Aamir Middleton MD [address] [place] [address] PCP - General 09/05/16 Hilda Almonte MD [address] [place] [address] Consulting Physician Obstetrics and Gynecology 01/06/13 Issa Valencia MD [address] [place] [address] Consulting Physician Urology 04/09/20 Aurelia Pablo MD [address] [place] [address] Consulting Physician Gastroenterology 05/21/20 Laron Casey MD [address] [place] [address] Consulting Physician Sleep Medicine 12/06/20 Landry Conklin MD [address] [place] [address] Consulting Physician Ophthalmology 10/30/21 Mamta Rondon MD [address] [place] [address] Consulting Physician Dermatology 02/12/23 Lizeth Hampton MD [address] [facility] [place] [address] Consulting Physician Urology 05/22/23
--- OUTSIDE RECORDS SUMMARY | 2024-08-15 16:02 | XMS_ITS | Encounter Summary ---
Author Organization [facility] Address [address] [employer] [place] [address] Phone Care Team Providers Care Biology Faculty Member Name Role Phone Aamir Middleton MD Primary Care Provider [phone] Hilda Almonte MD Unavailable [phone] Cornelio Alfaro MD Unavailable [phone] Issa Valencia MD Unavailable [phone] Rod Pablo MD Unavailable [phone] Laron Casey MD Unavailable Landry Conklin MD Unavailable [phone] Mamta Rondon MD Unavailable [phone] Lizeth Hampton MD Unavailable [phone] Encounter Details Date Type Department Care Team (Late st Contact Info) Description 07/15/2017 Orders Only [facility] [address] [employer] 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 Gender Identity Not on file Sexual Orientation Not on file documented as of this encounter Plan of Treatment Not on file documented as of this encounter Procedures Procedure Name Priority Date/Time Associated Diagnosis Comments SCAN - LABS 07/15/2017 11:31 AM MARINE PIPEFITTER HELPER documented in this encounter Results * SCAN - LABS (07/15/2017 11:31 AM MARINE PIPEFITTER HELPER) Aamir Middleton MD Final Result documented in [...] documented as of this encounter Care Teams Biology Faculty Member Relationship Specialty Start Date End Date Aamir Middleton MD [address] [place] [address] PCP - General 09/05/16 Hilda Almonte MD [address] [facility] [address] [address] Consulting Physician Obstetrics and Gynecology 01/06/13 Cornelio Alfaro MD [address] [facility] [address] [address] Consulting Physician Urology 01/28/20 08/24/23 Issa Valencia MD [address] [facility] [address] [address] Consulting Physician Urology 04/09/20 Rod Pablo MD [address] [facility] [address] [place] [address] Consulting Physician Gastroenterology 05/21/20 Laron Casey MD [address] [place] [address] Consulting Physician Sleep Medicine 12/06/20 Landry Conklin MD [address] [facility] [address] [place] [address] Consulting Physician Ophthalmology 10/30/21 Mamta Rondon MD [address] [place] [address] Consulting Physician Dermatology 02/12/23 Lizeth Hampton MD [address] [facility] [place] [address] Consulting Physician Urology 05/22/23 documented as of this encounter
--- OUTSIDE RECORDS SUMMARY | 2024-08-15 16:03 | XMS_ITS | Encounter Summary ---
Author Organization [facility] Address [address] [place] [address] Phone Care Team Providers Care Chronometer Assembler And Adjuster Name Role Phone Aamir Middleton MD Primary Care Provider [phone] Hilda Almonte MD Unavailable [phone] Cornelio Alfaro MD Unavailable [phone] Issa Valencia MD Unavailable [phone] Rod Pablo MD Unavailable [phone] Laron Casey MD Unavailable Landry Conklin MD Unavailable [phone] Mamta Rondon MD Unavailable [phone] Lizeth Hampton MD Unavailable [phone] Encounter Details Date Type Department Care Team (Late st Contact Info) Description 10/07/2017 Orders Only [facility] [address] [place] [address] Aamir Middleton MD [address] [address] Social History Tobacco Use Types Packs/Day Years Used Date Smoking Tobacco: Former Smokeless Tobacco: Never Alcohol Use Standard Drinks/Week Comments Yes 0 (1 standard drink = 0.6 oz pur e alcohol) Comments Unknown Sex and Gender Information Value Date Recorded Sex Assigned at Not on file 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 Gender Identity Not on file Sexual Orientation Not on file documented as of this encounter Plan of Treatment Not on file documented as of this encounter Procedures Procedure Name Priority Date/Time Associated Diagnosis Comments SCAN - LABS 10/07/2017 11:45 AM CDT documented in this encounter Results * SCAN - LABS (10/07/2017 11:45 AM CDT) Aamir Middleton MD Final Result documented in [...] documented as of this encounter Care Teams Chronometer Assembler And Adjuster Relationship Specialty Start Date End Date Aamir Middleton MD [address] [place] [address] PCP - General 09/05/16 Hilda Almonte MD [address] [facility] [address] [address] Consulting Physician Obstetrics and Gynecology 01/06/13 Cornelio Alfaro MD [address] [place] [address] [address] Consulting Physician Urology 01/28/20 08/24/23 Issa Valencia MD [address] [facility] [address] [address] Consulting Physician Urology 04/09/20 Rod Pablo MD [address] [facility] [address] [place] [address] Consulting Physician Gastroenterology 05/21/20 Laron Casey MD [address] [place] [address] Consulting Physician Sleep Medicine 12/06/20 Lnadry Conklin MD [address] [facility] [address] [place] [address] Consulting Physician Ophthalmology 10/30/21 Mamta Rondon MD [address] [place] [address] Consulting Physician Dermatology 02/12/23 Lizeth Hampton MD [address] [facility] [place] [address] Consulting Physician Urology 05/22/23 documented as of this encounter
--- OUTSIDE RECORDS SUMMARY | 2024-08-15 16:03 | XMS_ITS | Clinical Summary ---
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 Gender Identity Not on file Sexual Orientation Not on file Plan of Treatment Health Maintenance Due Date Last Done Comments DEXA Bone Density 1955 Hepatitis C Virus (HCV) Screening 1955 TdaP Immunization 1955 Cologuard 2006 Immunochemical Fecal Occult Blood 2006 Mammogram 2006 Pneumococcal Immunization (5 0+ years) (1 of 1 - PCV) 2006 Zoster Immunization (1 of 2) 2006 Influenza Immunization (#1) 2024 SARS-COV-2 Immunization ( - season) 2024 Colonoscopy 04/05/2025 04/05/2015 Colorectal Cancer Screening 04/05/2025 Respiratory Syncytial Virus (RSV) Immunization (Adult) (1 - 1-dose 75+ series) 08/12/2031 04/05/2015 Hepatitis B Immunization Aged Out No longer eligible based on patient's age to complete this topic Meningococcal Immunization (ACWY) Aged Out No longer eligible based on patient's age to complete this topic Rotavirus Immunization Aged Out No lo nger eligible based on patient's age to complete this topic Procedures Procedure Name Priority Date/Time Associated Diagnosis Comments COLONOSCOPY Routine 04/05/2015 from Last 3 Months or Most Recently Relevant to Health Maintenance Results * HM COLONOSCOPY (04/05/2015) Aamir Middleton MD PROCEDURE/MINOR SURGICAL ORDER MILLIE Final Result from Last 3 Months or Most Recently Relevant to Health Maintenance
--- OUTSIDE RECORDS SUMMARY | 2024-08-15 16:03 | XMS_ITS | Encounter Summary ---
Author Organization [facility] Address [address] [place] [address] Phone Care Team Providers Care Activities Director Scouting Name Role Phone Aamir Middleton MD Primary Care Provider [phone] Hilda Almonte MD Unavailable [phone] Cornelio Alfaro MD Unavailable [phone] Issa Valencia MD Unavailable [phone] Rod Pablo MD Unavailable [phone] Laron Casey MD Unavailable Landry Conklin MD Unavailable [phone] Mamta Rondon MD Unavailable [phone] Lizeth Hampton MD Unavailable [phone] Encounter Details Date Type Department Care Team (Late st Contact Info) Description 10/21/2017 Orders Only [facility] [address] [place] [address] Aamir Middleton MD [address] [address] Social History Tobacco Use Types Packs/Day Years Used Date Smoking Tobacco: Former Smokeless Tobacco: Never Alcohol Use Standard Drinks/Week Comments Yes 0 (1 standard drink = 0.6 oz pur e alcohol) Comments Unknown Sex and Gender Information Value Date Recorded Sex Assigned at Not on file 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 Gender Identity Not on file Sexual Orientation Not on file documented as of this encounter Plan of Treatment Not on file documented as of this encounter Procedures Procedure Name Priority Date/Time Associated Diagnosis Comments SCAN - LABS 10/21/2017 2:13 PM CDT documented in this encounter Results * SCAN - LABS (10/21/2017 2:13 PM CDT) Aamir Middleton MD Final Result documented [...] documented as of this encounter Care Teams Activities Director Scouting Relationship Specialty Start Date End Date Aamir Middleton MD [address] [place] [address] PCP - General 09/05/16 Hilda Almonte MD [address] [facility] [address] [address] Consulting Physician Obstetrics and Gynecology 01/06/13 Cornelio Alfaro MD [address] [place] [address] [address] Consulting Physician Urology 01/28/20 08/24/23 Issa Valencia MD [address] [facility] [address] [address] Consulting Physician Urology 04/09/20 Rod Pablo MD [address] [facility] [place] [address] Consulting Physician Gastroenterology 05/21/20 Laron Casey MD [address] [place] [address] Consulting Physician Sleep Medicine 12/06/20 Landry Conklin MD [address] [facility] [address] [place] [address] Consulting Physician Ophthalmology 10/30/21 Mamta Rondon MD [address] [place] [address] Consulting Physician Dermatology 02/12/23 Lizeth Hampton MD [address] [facility] [place] [address] Consulting Physician Urology 05/22/23 documented as of this encounter
--- OUTSIDE RECORDS SUMMARY | 2024-08-15 16:03 | XMS_ITS | Encounter Summary ---
Author Organization [facility] Address [address] [place] [address] Phone Care Team Providers Care Business Loan Processor Name Role Phone Aamir Middleton MD Primary Care Provider [phone] Hilda Almonte MD Unavailable [phone] Cornelio Alfaro MD Unavailable [phone] Issa Valencia MD Unavailable [phone] Rod Pablo MD Unavailable [phone] Laron Casey MD Unavailable Landry Conklin MD Unavailable [phone] Mamta Rondon MD Unavailable [phone] Lizeth Hampton MD Unavailable [phone] Encounter Details Date Type Department Care Team (Late st Contact Info) Description 10/08/2017 Orders Only [facility] [address] [place] [address] Aamir Middleton MD [address] [address] Social History Tobacco Use Types Packs/Day Years Used Date Smoking Tobacco: Former Smokeless Tobacco: Never Alcohol Use Standard Drinks/Week Comments Yes 0 (1 standard drink = 0.6 oz pur e alcohol) Comments Unknown Sex and Gender Information Value Date Recorded Sex Assigned at Not on file 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 Gender Identity Not on file Sexual Orientation Not on file documented as of this encounter Plan of Treatment Not on file documented as of this encounter Procedures Procedure Name Priority Date/Time Associated Diagnosis Comments SCAN - LABS 10/08/2017 10:12 AM CDT documented in this encounter Results * SCAN - LABS (10/08/2017 10:12 AM CDT) Aamir Middleton MD Final Result [...] documented as of this encounter Care Teams Business Loan Processor Relationship Specialty Start Date End Date Aamir Middleton MD [address] [place] [address] PCP - General 09/05/16 Hilda Almonte MD [address] [facility] [address], [place] [address] Consulting Physician Obstetrics and Gynecology 01/06/13 Cornelio Alfaro MD [address], [place] [address] Consulting Physician Urology 01/28/20 08/24/23 Issa Valencia MD [address] [facility] [address], [place] [address] Consulting Physician Urology 04/09/20 Rod Pablo MD [address] [facility] [address] [place] [address] Consulting Physician Gastroenterology 05/21/20 Laron Casey MD [address] [place] [address] Consulting Physician Sleep Medicine 12/06/20 Landry Conklin MD [address] [facility] [address] [place] [address] Consulting Physician Ophthalmology 10/30/21 Mamta Rondon MD [address] [place] [address] Consulting Physician Dermatology 02/12/23 Lizeth Hampton MD [address] [facility] [place] [address] Consulting Physician Urology 05/22/23 documented as of this encounter
--- OUTSIDE RECORDS SUMMARY | 2024-08-15 16:04 | XMS_ITS | Encounter Summary ---
Author Organization [facility] Address [address] [place] [address] Phone Care Team Providers Care Timber Sizer Name Role Phone Aamir Middleton MD Primary Care Provider [phone] Hilda Almonte MD Unavailable [phone] Cornelio Alfaro MD Unavailable [phone] Issa Valencia MD Unavailable [phone] Rod Pablo MD Unavailable [phone] Laron Casey MD Unavailable Landry Conklin MD Unavailable [phone] Mamta Rondon MD Unavailable [phone] Lizeth Hampton MD Unavailable [phone] Encounter Details Date Type Department Care Team (Late st Contact Info) Description 01/11/2020 Orders Only [facility] [address] [employer] [place] [address] Scanning, Provider Social History Tobacco Use Types Packs/Day Years Used Date Smoking Tobacco: Former Smokeless Tobacco: Never Alcohol Use Standard Drinks/Week Comments Yes 0 (1 standard drink = 0.6 oz pur e alcohol) PHQ-2 Answer Date Recorded PHQ-2 Total Score (If total score is 3 or more points, staff should administer the PHQ-9) 0 10/28/2019 Comments Unknown Sex and Gender Information Value Date Recorded Sex Assigned at Not on file 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 Gender Identity Not on file Sexual Orientation Not on file documented as of this encounter Plan of Treatment Not on file documented as of this encounter Procedures Procedure Name Priority Date/Time Associated Diagnosis Comments SCAN - LABS 01/11/2020 documented in this encounter Results * SCAN - LABS (01/11/2020) Provider Scanning Final Result documented in this encounter Visit Diagnoses Not on filedocumented in this encounter Additional Health Concerns Infection Onset Date Last Indicated Resolved Time Respiratory Infection (ANI), contact + droplet Comment:Automatically added due to negative COVID-19 result. 01/01/2020 01/01/2020 01/15/2020 3:0 6 AM CDT COVID: Suspected 10/02/2022 10/02/2022 10/03/2022 3:05 AM CDT documented as of this encounter Care Teams Timber Sizer Relationship Specialty Start Date End Date Aamir Middleton MD [address] [place] [address] PCP - General 09/05/16 Hilda Almonte MD [address], [place] [address] Consulting Physician Obstetrics and Gynecology 01/06/13 Cornelio Alfaro MD [address], [place] [address] Consulting Physician Urology 01/28/20 08/24/23 Issa Valencia MD [address], [place] [address] Consulting Physician Urology 04/09/20 Rod Pablo MD [address] [place] [address] Consulting Physician Gastroenterology 05/21/20 Laron Casey MD [address] [place] [address] Consulting Physician Sleep Medicine 12/06/20 Landry Conklin MD [address] [facility] [address] [place] [address] Consulting Physician Ophthalmology 10/30/21 Mamta Rondon MD [address] [place] [address] Consulting Physician Dermatology 02/12/23 Lizeth Hampton MD [address] [facility] [place] [address] Consulting Physician Urology 05/22/23 documented as of this encounter
== END 2024-08-15 13:51 | disposition home or self-care (01) ==
LOC: ANHIMG 13:55
PROVIDERS: PCP Internal Medicine Infectious Disease; Visit Provider Internal Medicine Infectious Disease
DX: M81.0 Age-related osteoporosis without current pathological fracture (principal); M85.89 Other specified disorders of bone density and structure, multiple sites
CPT/HCPCS: 77080

== ENCOUNTER 2025-02-27 13:43 | Outpatient (CLI) | payer MEDICARE, SELFPAY ==
--- OUTSIDE RECORDS SUMMARY | 2025-02-13 08:50 | XMS_ITS ---
Author Organization [facility] Address [address] [place], [place] [id number] Care Team Providers Care Steam Table Associate Name Role Phone THOM RABAGO Unavailable [phone] Onur Lai Unavailable Unavailable Allergies Allergen (clinical drug ingredient) Drug/Non Drug Allergy documented on EMR Reaction Allergy Type Onset Date Status Penicillin Unknown Drug Allergy Active REASON FOR VISIT The patient has a thick painful toenail of the right 3rd toe. She has been using topical ciclopiroxfor 6-7 months with no improvement Medications Medication SIG (Take, Route, Frequency, Duration) Notes Start Date End Date Status Terbinafine HCl 250 MG 1 tablet Orally O nce a day; Duration: 42 days 02/13/2025 03/27/2025 Active Levothyroxine Sodium Active Citalopram Hydrobromide Active Omeprazole Active Metformin & Diet Manage Prod Active Aspirin Active Vital Signs Height 61 in 02/13/2025 Weight 130 lbs 02/13/2025 BMI 24.56 kg/m2 02/13/2025 Height-cm 154.94 cm 02/13/2025 Weight-kg 58.97 kg 02/13/2025 Encounters Encounter Location Date Provider Diagnosis [facility] [address] [place], [place] [id number] 02/13/2025 THOM RABAGO Tinea unguium B35.1 ; Pain in right toe(s) M79.674 ; Pain in left toe(s) M79.675 and Atherosclerosis of [place] arteries of extremities with intermittent claudication, bilateral legs I70.213 Assessments Encounter Date Diagnosis (ICD Code) Assessment Notes Treatment Notes Treatment Clinical Notes Section Notes 02/13/2025 Tinea unguium (ICD-10 - B35.1) FUNGAL TOENAILS: Discussed various treatment options for fungal toenails including debridement, topical antifungals, oral antifungals, toenail avulsion, or toenail matrixectomy. Patients LFTs are WNL. She will email a copy to her chart. 02/13/2025 Pain in right toe(s) (ICD-10 - M79.674) 02/13/2025 Pain in left toe(s) (ICD-10 - M79.675) 02/13/2025 Atherosclerosis of [place] arteries of extremities with intermittent claudication, bilateral legs (ICD-10 - I70.213) Plan Of Treatment Medication Medication Name Sig Start Date Stop Date Notes Terbinafine HCl 250 MG 1 tablet Orally O nce a day; Duration: 42 days 02/13/2025 03/27/2025 Treatment Notes Assessment Notes Tinea unguium FUNGAL TOENAILS: Discussed various treatment options for fungal toenails including debridement, topical antifungals, oral antifungals, toenail avulsion, or toenail matrixectomy. Patients LFTs are WNL. She will email a copy to her chart. Next Appt Details Follow Up: 5 weeks, Reason: See how oral lamisil is tolerated. Repeat LFTs Provider Name:THOM RABAGO, 02:30:00 PM, [address], [address], [id number], Progress Notes * Wendy SANTIAGODOB:11/1955 (69 yo F)Acc No.[id number]:02/13/2025 Progress Notes Patient: Wendy STEIN Provider: Deng Rabago DPM :1955 A ge:69 Y S ex:Female Date:02/13/2025 Address:[address] [place], [place] [id number] Subjective: * Chief Complaints: * 1 . The patient has a thick painful toenail of the right 3rd toe. She has been using topical ciclopirox for 6-7 months with no improvement. * HPI: H PI: New Complaint E stablished patient presents with a new complaint., Patient complains of an issue to th e right foot third toe., Duration of problem is about a week.,patient states theyve been avoiding tight shoes becxause of it. P atient denies any injury., MA: ab. * ROS: G eneral / Constitutional: Patient denies c hills, fever, weakness, night sweats. M usculoskeletal: Patient denies c hildhood foot problems, weakness. ? P eripheral Vascular: Patient denies u lceration of feet, cold extremities. ? S kin: Patient denies u lcerations, discoloration. P atient complains of f ungal nails. N eurologic: Patient denies b alance difficulty, confusion, difficulty speaking, dizziness. * Medical History: A coleen reflux, Blood transfusion, Bladder cancer, Thyroid Disease, Diabetic. * Surgical History: b unionectomy . * Family History: N o Family History documented.. * Medications: T aking Aspirin , Taking Metformin & Diet Manage Prod , Taking Omeprazole , Taking Citalopram Hydrobromide , Taking Levothyroxine Sodium , Medication List reviewed and reconciled with the patient * Allergies: P enicillin. Objective: * Vitals: S hoe Size: 6.5, Wt:130lbs, Wt-k.97 kg, Ht: 61 in, Ht-cm: 154.94 cm, BMI:24.56Index, Body Surface Area: 1.59. * Examination: C onstitutional: Constitutional T he patient is awake, alert, well developed, well groomed and well nourished. D ermatologic: Skin findings: S kin is warm, dry, supple with no breaks in the skin. Nail pathology: T he right 3rd toenail is thick, discolored, painful, with subungal debris. V ascular: Dorsalis pedis pulse: 2 /4, bilateral. Posterior tibial pulse: 2 /4, bilateral. Capillary refill: l ess than 3 seconds. Edema: N o edema, bilateral. N eurologic: Gross sensation G ross sensation is intact to light touch.? M usculoskeletal: Muscle Strength M uscle strength is 5/5 in regards to dorsiflexion, plantarflexion, inversion, and eversion in bilateral lower extremities. ? Assessment: * Assessment: 1. T deea ungmitchum - B35.1 (Primary) 2 . P ain in right toe(s) - M79.674? 3. P ain in left toe(s) - M79.675 4 . A therosclerosis of [place] arteries of extremities with intermittent claudication, bilateral legs - I70.213 Plan: * Treatment: * Preventive Medicine: Screenings: F all risk screening F all Risk Assessment: N o falls in the past year. * Follow Up: 5 weeks (Reason: See how oral lamisil is tolerated. Repeat LFTs) * Billing Information: * Visit Code: 55373 Office Visit, New Pt., Level 3. * Procedure Codes: * Electronic signature of THOM RABAGO DPM on 02/27/2025 at 02:04 PM CDT Sign off status: Pending * Provider: Deng Rabago DPM Date: 0 02/13/2025 Generated for Dimitris Rankin/Jerry on: 0 02/27/2025 02:04 PM CDT History and Physical Notes * HPI (History of Present Illness) Category Sub-Category Detail Notes Category Not es HPI New Complaint Established onelia ent presents with a new complaint., Patient complains of an issue to th e right foot third toe., Duration of problem is about a week.,patient states theyve been avoiding tight shoes becxause of it. Patient denies any injury., MA: ab Examination Category Sub-Category Detail Notes Category Not es Dermatologic Skin findings: Skin is warm, dr y, supple with no breaks in the skin Nail pathology: The right 3rd toenai l is thick, discolored, painful, with subungal debris Neurologic Gross sensation Gross sensation is intact to light touch Vascular Dorsalis pedis pulse: 2/4, bilateral Edema: No edema, bilateral Capillary refill: less than 3 seconds Posterior tibial pulse: 2/4, bilateral Musculoskeletal Muscle Strength Muscle strength is 5/5 in regards to dorsiflexion, plantarflexion, inversion, and eversion in bilateral lower extremities Constitutional Constitutional The patient is a wake, alert, well developed, well groomed and well nourished
--- NOTE | ~2025-02-27 | XR_ITS ---
EXAMINATION: XR femur RT min 2V, 02/27/2025 13:50 CDT HISTORY: S80.859A - Superficial foreign body, unspecified lower le... COMPARISON: No comparisons available. Findings: No acute fracture or malalignment. No significant degenerative changes. Soft tissues unremarkable. Impression: No acute fracture. No metallic radiopaque foreign body identified. Reviewed, dictated and finalized at location A. Impression: No acute fracture. No metallic radiopaque foreign body identified.
--- OUTSIDE RECORDS SUMMARY | 2025-02-27 14:03 | XMS_ITS | Clinical Summary ---
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 Active omeprazole (PRILOSEC) 20 mg Oral CpDR [...] 9:59 AM CDT Height 154.9 cm (5' 1) 12/16/2012 4:16 PM CDT Body Mass Index [...] 2006 OSTEOPOROSIS SCREENING 2021 INFLUENZA VACCINE (#1) 2025 RSV VACCINE (60+ or ) (1 - 1-dose 75+ series) 08/12/2031 Medical Devices Implanted Type Area Audio Production Manager Device Identifier Shelf Expiration Date Model / Serial / Lot Sling Desara System Eric-Ds01 - [id number] Implanted:Qty: 1 on 11/29/2012 by Hilda Almonte MD at [facility] Sling N/A: Urethra [employer] 08/05/2014 ERIC-DS01 / / [id number] Sling Desara System Eric-Ds01 - [id number] Implanted:Qty: 1 on 11/29/2012 at [facility] Sling N/A: Vagina [employer] 07/09/2014 ERIC-DS01 / / [id number] Other Implanted:(Jose ntity not on file) Explanted:(Jose ntity not on file) Description:right upper toot h Screw Implanted:(Jose ntity not on file) Explanted:(Jose ntity not on file) Description:right great toe Supra Pubic Catheter Implanted:(Jose ntity not on file) Explanted:(Jose ntity not on file) Insurance BS BLUE ACCESS/TRUE BLUE PPO Advance Directives For more information, please contact: [phone] Documents on File Type Date Recorded 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
--- OUTSIDE RECORDS SUMMARY | 2025-02-27 14:03 | XMS_ITS | Encounter Summary ---
Author Organization [facility] Address [address] [email or web address] [address] Phone Care Team Providers Care Director Sales Training Name Role Phone Aamir Middleton MD Primary Care Provider [phone] Hilda Almonte MD Unavailable [phone] Cornelio Alfaro MD Unavailable [phone] Issa Valencia MD Unavailable [phone] Rod Pablo MD Unavailable [phone] Laron Casey MD Unavailable Landry Conklin MD Unavailable Mamta Rondon MD Unavailable [phone] Lizeth Hampton MD Unavailable [phone] Onur Lai MD Primary Care Provider Encounter Details Date Type Department Care Team (Late st Contact Info) Description 02/13/2022 Orders Only [facility] [address] [email or web address] [address] Aamir Middleton MD [address] [place] [address] Social History Tobacco Use Types [...] on file 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 Gender Identity Not on file Sexual Orientation [...] RADIOLOGY/IMAGING (02/13/2022) Anatomical Region Laterality Modality Other Aamir Middleton MD Final Result documented in this encounter Visit Diagnoses Not on filedocumented in this encounter Additional Health Concerns Infection Onset Date Last Indicated Resolved Time COVID: Suspected 10/02/2022 10/02/2022 10/03/2022 3:05 AM CDT documented as of this encounter Care Teams Director Sales Training Relationship Specialty Start Date End Date Aamir Middleton MD [address] [place] [address] PCP - General 09/05/16 10/06/24 Onur Lai MD [address] [place] [address] PCP - General Internal Medicine 10/07/24 Hilda Almonte MD [address] [place] [address] Consulting Physician Obstetrics and Gynecology 01/06/13 Cornelio Alfaro MD [address] [place] [address] Consulting Physician Urology 01/28/20 08/24/23 Issa Valencia MD [address] [place] [address] Consulting Physician Urology 04/09/20 Rod Pablo MD [address] [place] [address] Consulting Physician Gastroenterology 05/21/20 Laron Casey MD [address] [place] [address] Consulting Physician Sleep Medicine 12/06/20 Landry Conklin MD [address] [place] [address] Consulting Physician Ophthalmology 10/30/21 Mamta Rondon MD [address] [place] [address] Consulting Physician Dermatology 02/12/23 Lizeth Hampton MD [address] [facility] [place] [address] Consulting Physician Urology 05/22/23 documented as of this encounter
--- OUTSIDE RECORDS SUMMARY | 2025-02-27 14:03 | XMS_ITS | Clinical Summary ---
Author Organization [facility] Address [address] [place] [address] Care Team Providers Care Membership Advisor Name Role Phone Aamir Middleton MD Primary Care Provider [phone] Source Comments [facility],non-owned Affiliates and Associated Physician Practices is amultiple site organization consisting of ambulatory clinics and hospital sitesin [place], [place], [place] and [place]. This disclosure is being madepursuant to the Care Everywhere program and may not contain all information available regarding this patient. Last updated 18.[facility] Allergies Active Allergy Reactions Criticality Noted Date Comments Penicillin G Rash Medium Reaction: rash, Medications * Be aware that medications may not be up to date on this document. Alwaysverify current medications with the patient. buPROPion (WELLBUTRIN) 75 MG tablet 12/07/2017 Active citalopram (CELEXA) 10 MG tablet 12/07/2017 Active ENGERIX-B 20 MCG/ML injection ADM 1ML IM UTD 0 11/11/2017 Active SYNTHROID 88 MCG tablet 12/07/2017 Active metFORMIN (GLUCOPHAGE) 500 MG tablet Take 500 mg by mouth 12/02/2017 Active metFORMIN (GLUCOPHAGE) 1000 MG tablet Take 1,000 mg by mouth 11/24/2017 Active omeprazole (PRILOSEC) 20 MG capsule 12/07/2017 Active rosuvastatin (CRESTOR) 10 MG tablet 11/15/2017 Active SUMAtriptan (IMITREX) 100 MG tablet 01/02/2018 Active lifitegrast (XIIDRA) 5 % opthalmic solution 1 drop 07/30/2017 Active Active Problems Problem Noted Date Diagnosed [...] up with a headache. Scores 18 on Eccles scale. Last Assessment & Plan: Her says she snores. She has unrestful sleep, and wakes up with a headache. She scores 18 on the Eccles scale. We will set her up for [...] She checks her own labs at the [facility] periodically. Results are forwarded [...] 01/07/1984 Overview (01/25/2018): Overview: H/O splenectomy Immunizations Immunization Administration Dates Next Due HEP A VACCINE, ADULT 06/08/2002,12/06/2001 HEP B VACCINE, PED/ADOL 06/08/1979 INFLUENZA VACCINE 03/23/2017 MENINGOCOCAL MENINGITIS 12/17/2010 MENINGOCOCCAL ACWY (MCV4P) VAC IM 02/27/2011 PNEUMOCOCCAL PPSV23 12/17/2010,08/07/2000 Pneumococcal Pcv13 Conj [...] at Not on file Legal Sex Female 2:42 PM CDT Gender Identity Not on file [...] 1:54 PM CDT Height 154.9 cm (5' 1) 01/24/2019 1:54 PM CDT Body Mass Index [...] T d or Tdap) 01/27/2022 01/28/2012, 12/13/2001 DEPRESSION SCREENING 06/08/2024 DIABETES - URINE PROTEIN SCREENING 06/08/2024 MEDICARE AWV CALENDAR YEAR 2024 COVID-19 VACCINE (1 - 2023-2 5 season) 2025 INFLUENZA VACCINE (#1) 2025 9, 03/09/2018, 03/23/2017 Respiratory Syncytial Virus (RSV) Vaccine Pt: or over 60 yrs (1 - 1-dose 75+ series) 08/12/2031 HEPATITIS B VACCINE Aged Out 06/08/1979 No longe r eligible based on patient's age to complete this topic MENINGOCOCCAL GROUPS A/C/Y/W VACCINE Aged Out 02/27/2011, 12/17/2010 No longer eligible based on patient's age to complete this topic HIB VACCINE Aged Out No longer eligi ble based on patient's age to complete this topic HPV VACCINE Aged Out No longer eligi ble based on patient's age to complete this topic MENINGOCOCCAL (Group B) VACCINE SHARED DECISION-MAKING Aged Out No longer eligible based on patient's age to complete this topic Insurance AETNA AETNA MEDICARE ADV Care Teams Membership Advisor Relationship Specialty Start Date End Date Aamir Middleton MD [address] [place] [phone] PCP - General 12/23/17
--- OUTSIDE RECORDS SUMMARY | 2025-02-27 14:03 | XMS_ITS | Encounter Summary ---
Author Organization [facility] Address [address] [place] [address] Phone Care Team Providers Care Guard Supervisor Name Role Phone Aamir Middleton MD Primary Care Provider [phone] Hilda Almonte MD Unavailable [phone] Cornelio Alfaro MD Unavailable [phone] Issa Valencia MD Unavailable [phone] Rod Pablo MD Unavailable [phone] Laron Casey MD Unavailable Landry Conklin MD Unavailable [phone] Mamta Rondon MD Unavailable [phone] Lizeth Hampton MD Unavailable [phone] Onur Lai MD Primary Care Provider Encounter Details Date Type Department Care Team (Late st Contact Info) Description 04/27/2020 Orders Only [facility] [address] [place] [address] Scanning, Provider Social History Tobacco Use Types Packs/Day Years Used Date Smoking Tobacco: Former Cigarettes 0.1 15 1 969 - 1984 Smokeless Tobacco: Never Alcohol Use Standard Drinks/Week [...] on file 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 Gender Identity Not on file Sexual [...] documented as of this encounter Care Teams Guard Supervisor Relationship Specialty Start Date End Date Aamir Middleton MD [address] [place] [address] PCP - General 09/05/16 10/06/24 Onur Lai MD [address] [place] [address] PCP - General Internal Medicine 10/07/24 Hilda Almonte MD [address] [place] [address] Consulting Physician Obstetrics and Gynecology 01/06/13 Cornelio Alfaro MD [address] [place] [address] Consulting Physician Urology 01/28/20 08/24/23 Issa Valencia MD [address] [place] [address] Consulting Physician Urology 04/09/20 Rod Pablo MD [address] [place] [address] Consulting Physician Gastroenterology 05/21/20 Laron Casey MD [address] [place] [address] Consulting Physician Sleep Medicine 12/06/20 Landry Conklin MD [address] [place] [address] Consulting Physician Ophthalmology 10/30/21 Mamta Rondon MD [address] [place] [address] Consulting Physician Dermatology 02/12/23 Lizeth Hampton MD [address] [facility] [place] [address] Consulting Physician Urology 05/22/23 documented as of this encounter
--- OUTSIDE RECORDS SUMMARY | 2025-02-27 14:03 | XMS_ITS | Encounter Summary ---
Author Organization [facility] Address [address] [place] [address] Care Team Providers Care Associate Professor Physician Name Role Phone Aamir Middleton MD Primary Care Provider [phone] Encounter Details Date Type Department Care Team (Late st Contact Info) Description 10/22/2018 Lab Requisition [facility] Care DermPath Lab [address] [facility] [place] [facility], [place] [phone] Mamta Rondon MD [address] [facility] [place] [address] [place] [address] Social History Tobacco Use Types Packs/Day Years [...] AM CDT) Case Report Dermatopathology Report Case: [id number] Authorizing Provider: Mamta Rondon MD Collected: 10/21/2018 12:00 AM Pathologist: Jessica Lang MD Received: 10/22/2018 09:05 AM Specimen: Skin, mid chest 1:53 PM CDT DERMATOPATHOLOGY LABORATORY Final Diagnosis Specimen A. SKIN, mid chest: LICHEN PLANUS-LIKE KERATOSIS (BENIGN LICHENOID KERATOSIS) (L82.1) 1:53 PM CDT DERMATOPATHOLOGY LABORATORY at 1353 CDT Clinical History AK vs BCC vs SCC, [...] characteristic determined by the Dermatopathology Laboratory at [facility], directed by Dr. Ramila Ramos. These tests need not be, and therefore are not, approved by the [place] Food and Drug Administration. The tests are used for clinical purposes. Billing Codes Specimen Charges Stain Charges 80422 1 1:53 PM CDT DERMATOPATHOLOGY LABORATORY Embedded Images 1:53 PM CDT DERMATOPATHOLOGY LABORATORY Pathology/Cytolog y TISSUE SPECIMEN FROM SKIN / Unknown 10/21/2018 10/22/2018 9:05 AM CDT Mamta Rondon MD LAB - PATHOLOGY/CYTOLOGY OR DERABLES Final Result DERMATOPATHOLOGY LABORATORY [facility] - Department of Dermatology [address] [place] [address], 5th Floor Lab [address] [phone] documented in this encounter Visit Diagnoses Not on filedocumented in this encounter Care Teams Associate Professor Physician Relationship Specialty Start Date End Date Aamir Middleton MD [address] [place] [phone] PCP - General 12/23/17 documented as of this encounter
--- OUTSIDE RECORDS SUMMARY | 2025-02-27 14:03 | XMS_ITS | Encounter Summary ---
Author Organization [facility] Address [address] [place] [address] Care Team Providers Care Field Advisor Name Role Phone Aamir Middleton MD Primary Care Provider [phone] Encounter Details Date Type Department Care Team (Late st Contact Info) Description 10/20/2023 Lab Requisition [facility] - DermPath Lab [address] [facility], [facility] [place] [id number] Mamta Rondon MD [address] [facility] [address] [place] [address] Social History Tobacco Use Types Packs/Day Years [...] PM CDT) Case Report Dermatopathology Report Case: [id number] Authorizing Provider: Mamta Rondon MD Collected: 10/20/2023 01:39 PM Ordering Location: [facility] - Received: 10/21/2023 12:48 PM DermPath Lab Pathologist: Radha Valencia MD Specimen: Skin, left upper arm 11:39 AM CDT DERMATOPATHOLOGY LABORATORY Final Diagnosis Specimen A. SKIN, left upper arm: LICHEN PLANUS-LIKE KERATOSIS (BENIGN LICHENOID KERATOSIS) (L82.1) 11:39 AM CDT DERMATOPATHOLOGY LABORATORY at 1139 CDT Clinical History R/o NMSC 11:39 AM CDT [...] determined by the Dermatopathology Laboratory at [facility], directed by Dr. Ramila Ramos. These tests need not be, and therefore are not, approved by the [place] Food and Drug Administration. The tests are used for clinical purposes. Billing Codes Specimen Charges Stain Charges 50744 1 11:39 AM CDT DERMATOPATHOLOGY LABORATORY Embedded Images 11:39 AM CDT DERMATOPATHOLOGY LABORATORY Pathology/Cytolo gy TISSUE SPECIMEN FROM SKIN / Unknown 10/20/2023 1:39 PM CDT 10/21/2023 12:48 PM CDT us Mamta Rondon MD LAB - PATHOLOGY/CYTOLOGY OR DERABLES Final Result DERMATOPATHOLOGY LABORATORY [facility] - Department of Dermatology [address], [address] [phone] documented in this encounter Visit Diagnoses Not on filedocumented in this encounter Care Teams Field Advisor Relationship Specialty Start Date End Date Aamir Middleton MD [address] [place] [address] PCP - General 12/23/17 documented as of this encounter
--- OUTSIDE RECORDS SUMMARY | 2025-02-27 14:03 | XMS_ITS | Encounter Summary ---
Author Organization [facility] Address [address] [place] [address] Phone Care Team Providers Care Manager Loss Prevention Name Role Phone Aamir Middleton MD Primary Care Provider [phone] Hilda Almonte MD Unavailable [phone] Cornelio Alfaro MD Unavailable [phone] Issa Valencia MD Unavailable Rod Pablo MD Unavailable [phone] Laron Casey MD Unavailable Landry Conklin MD Unavailable Mamta Rondon MD Unavailable +[phone] Lizeth Hampton MD Unavailable [phone] Onur Lai MD Primary Care Provider Encounter Details Date Type Department Care Team (Late st Contact Info) Description 11/28/2021 Orders Only [facility] [address] [address] Aamir Middleton MD [address] [place] [address] Social History Tobacco Use Types [...] on file 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 Gender Identity Not on file Sexual [...] SCAN (11/28/2021) Anatomical Region Laterality Modality Other Aamir Middleton MD CV CARDIAC SERVICES PROCEDURE S Final Result documented in this encounter Visit Diagnoses Not on filedocumented in this encounter Additional Health Concerns Infection Onset Date Last Indicated Resolved Time COVID: Suspected 10/02/2022 10/02/2022 10/03/2022 3:05 AM CDT documented as of this encounter Care Teams Manager Loss Prevention Relationship Specialty Start Date End Date Aamir Middleton MD [address] [place] [address] PCP - General 09/05/16 10/06/24 Onur Lai MD [address] [place] [address] PCP - General Internal Medicine 10/07/24 Hilda Almonte MD [address] [place] [address] Consulting Physician Obstetrics and Gynecology 01/06/13 Cornelio Alfaro MD [address] [place] [address] Consulting Physician Urology 01/28/20 08/24/23 Issa Valencia MD [address] [place] [address] Consulting Physician Urology 04/09/20 Rod Pablo MD [address] [place] [address] Consulting Physician Gastroenterology 05/21/20 Laron Casey MD [address] [place] [address] Consulting Physician Sleep Medicine 12/06/20 Landry Conklin MD [address] [place] [address] Consulting Physician Ophthalmology 10/30/21 Mamta Rondon MD [address] [place] [address] Consulting Physician Dermatology 02/12/23 Lizeth Hampton MD [address] [facility] [place] [address] Consulting Physician Urology 05/22/23 documented as of this encounter
--- OUTSIDE RECORDS SUMMARY | 2025-02-27 14:04 | XMS_ITS | Patient Health Record ---
Author Organization [facility] Address [address] [place], [place] [id number] Care Team Providers Care Mobile Application Architect Name Role Phone THOM RABAGO Unavailable [phone] Onur Lai Unavailable Unavailable Allergies Allergen (clinical drug ingredient) Drug/Non Drug Allergy documented on EMR Reaction Allergy Type Onset Date Status Penicillin Unknown Drug Allergy Active Reason For Referral No Information Medications Medication SIG (Take, Route, Frequency, Duration) Notes Start Date End Date Status Terbinafine HCl 250 MG 1 tablet Orally O nce a day; Duration: 42 days 02/13/2025 03/27/2025 Active Terbinafine HCl 250 MG 1 tablet Orally O nce a day; Duration: 42 days 02/20/2025 04/03/2025 Active Levothyroxine Sodium Active Citalopram Hydrobromide Active Aspirin Active Omeprazole Active Metformin & Diet Manage Prod Active Vital Signs Height-cm 154.94 cm 02/13/2025 Weight-kg 58.97 kg 02/13/2025 Height 61 in 02/13/2025 Weight 130 lbs 02/13/2025 BMI 24.56 kg/m2 02/13/2025 Encounters Encounter Location Date Provider Diagnosis [facility] [address] [place], [place] [id number] 02/13/2025 THOM RABAGO Tinea unguium B35.1 ; Pain in right toe(s) M79.674 ; Pain in left toe(s) M79.675 and 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 [address] [place], [place] [id number] 02/20/2025 THOMJANINA YOUNGAFIA Assessments Encounter Date Diagnosis (ICD Code) Assessment [...] toe(s) (ICD-10 - M79.675) 02/13/2025 Atherosclerosis of ton[place]anda arteries of extremities with intermittent claudication, bilateral legs (ICD-10 - I70.213) Plan Of Treatment Next Appt Details Provider Name:THOM RABAGO, 02:30:00 PM, [address], [place], [place], [id number], Insurance Providers Payer Name Payer Address Payer Phone Subscriber Number Group Number Insured Name Patient Relationship to Insured Coverage Start Date Coverage End Date [employer] [address] [place] [address] [id number] Wendy Duffy Self - patient is the insured Medical (General) History Medical History History ICD Code acid reflux Blood transfusion bladder cancer Thyroid Disease Diabetic Surgical History Surgery Date(Month/Year) bunionectomy
--- OUTSIDE RECORDS SUMMARY | 2025-02-27 14:04 | XMS_ITS | Encounter Summary ---
Author Organization [facility] Address [address] [place] [address] Phone Care Team Providers Care Cut Plug Packer Name Role Phone Aamir Middleton MD Primary Care Provider [phone] Hilda Almonte MD Unavailable [phone] Cornelio Alfaro MD Unavailable [phone] Issa Valencia MD Unavailable [phone] Rod Pablo MD Unavailable [phone] Laron Casey MD Unavailable Landry Conklin MD Unavailable [phone] Mamta Rondon MD Unavailable [phone] Lizeth Hampton MD Unavailable [phone] Onur Lai MD Primary Care Provider Encounter Details Date Type Department Care Team (Late st Contact Info) Description 10/07/2017 Orders Only [facility] [address] [place] [address] Aamir Middleton MD [address] [place] [address] Social History Tobacco Use Types Packs/Day Years Used Date Smoking Tobacco: Former Smokeless Tobacco: Never Alcohol Use Standard Drinks/Week Comments Yes 0 (1 standard drink = 0.6 oz pur e alcohol) Comments Unknown Sex and Gender Information Value Date Recorded Sex Assigned at Not on file 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 Gender Identity Not on file Sexual [...] documented as of this encounter Care Teams Cut Plug Packer Relationship Specialty Start Date End Date Aamir Middleton MD [address] [place] [address] PCP - General 09/05/16 10/06/24 Onur Lai MD [address] [place] [address] PCP - General Internal Medicine 10/07/24 Hilda Almonte MD [address] [place] [address] Consulting Physician Obstetrics and Gynecology 01/06/13 Cornelio Alfaro MD [address] [place] [address] Consulting Physician Urology 01/28/20 08/24/23 Issa Valencia MD [address] [place] [address] Consulting Physician Urology 04/09/20 Rod aPblo MD [address] [place] [address] Consulting Physician Gastroenterology 05/21/20 Laron Casey MD [address] [place] [address] Consulting Physician Sleep Medicine 12/06/20 Landry Conklin MD [address] [place] [address] Consulting Physician Ophthalmology 10/30/21 Mamta Rondon MD [address] [place] [address] Consulting Physician Dermatology 02/12/23 Lizeth Hampton MD [address] [facility] [place] [address] Consulting Physician Urology 05/22/23 documented as of this encounter
--- OUTSIDE RECORDS SUMMARY | 2025-02-27 14:04 | XMS_ITS | Encounter Summary ---
Author Organization [facility] Address [address] [email or web address] [address] Phone Care Team Providers Care Oceanography Teacher Name Role Phone Aamir Middleton MD Primary Care Provider [phone] Hilda Almonte MD Unavailable [phone] Cornelio Alfaro MD Unavailable [phone] Issa Valencia MD Unavailable [phone] Rod Pablo MD Unavailable [phone] Laron Casey MD Unavailable Landry Conklin MD Unavailable [phone] Mamta Rondon MD Unavailable [phone] iLzeth Hampton MD Unavailable [phone] Onur Lai MD Primary Care Provider Encounter Details Date Type Department Care Team (Late st Contact Info) Description 10/08/2017 Orders Only [facility] [address] [email or web address] [address] Aamir Middleton MD [address] [place] [address] Social History Tobacco Use Types Packs/Day Years Used Date Smoking Tobacco: Former Smokeless Tobacco: Never Alcohol Use Standard Drinks/Week Comments Yes 0 (1 standard drink = 0.6 oz pur e alcohol) Comments Unknown Sex and Gender Information Value Date Recorded Sex Assigned at Not on file 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 Gender Identity Not on file Sexual Orientation [...] documented as of this encounter Care Teams Oceanography Teacher Relationship Specialty Start Date End Date Aamir Middleton MD [address] [place] [address] PCP - General 09/05/16 10/06/24 Onur Lai MD [address] [place] [address] PCP - General Internal Medicine 10/07/24 Hilda Almonte MD [address] [place] [address] Consulting Physician Obstetrics and Gynecology 01/06/13 Cornelio Alfaro MD [address] [place] [address] Consulting Physician Urology 01/28/20 08/24/23 Issa Valencia MD [address] [place] [address] Consulting Physician Urology 04/09/20 Rod Pablo MD [address] [facility] [address] [place] [address] Consulting Physician Gastroenterology 05/21/20 Laron Casey MD [address] [place] [address] Consulting Physician Sleep Medicine 12/06/20 Landry Conklin MD [address] [place] [address] Consulting Physician Ophthalmology 10/30/21 Mamta Rondon MD [address] [place] [address] Consulting Physician Dermatology 02/12/23 Lizeth Hampton MD [address] [facility] [place] [address] Consulting Physician Urology 05/22/23 documented as of this encounter
--- OUTSIDE RECORDS SUMMARY | 2025-02-27 14:04 | XMS_ITS | Encounter Summary ---
Author Organization [facility] Address [address] [email or web address] [employer] [place] [address] Phone Care Team Providers Care Bucket Turner Name Role Phone Aamir Middleton MD Primary Care Provider [phone] Hilda Almonte MD Unavailable [phone] Cornelio Alfaro MD Unavailable [phone] Issa Valencia MD Unavailable [phone] Rod Pablo MD Unavailable [phone] Laron Casey MD Unavailable Landry Conklin MD Unavailable [phone] Mamta Rondon MD Unavailable [phone] Lizeth Hampton MD Unavailable [phone] Onur Lai MD Primary Care Provider Encounter Details Date Type Department Care Team (Late st Contact Info) Description 07/15/2017 Orders Only [facility] [address] [email or web address] [place] [address] Aamir Middleton MD [address] [place] [address] Social History Tobacco Use Types Packs/Day Years Used Date Smoking Tobacco: Former Smokeless Tobacco: Never Alcohol Use Standard Drinks/Week Comments Yes 0 (1 standard drink = 0.6 oz pur e alcohol) Comments Unknown Sex and Gender Information Value Date Recorded Sex Assigned at Not on file 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 Gender Identity Not on file Sexual Orientation Not on file documented as of this encounter Plan of Treatment Not on file documented as of this encounter Procedures Procedure Name Priority Date/Time Associated Diagnosis Comments SCAN - LABS 07/15/2017 11:31 AM CRYPTOLOGIST documented in this encounter Results * SCAN - LABS (07/15/2017 11:31 AM CRYPTOLOGIST) Aamir Middleton MD Final Result documented in [...] documented as of this encounter Care Teams Bucket Turner Relationship Specialty Start Date End Date Aamir Middleton MD [address] [place] [address] PCP - General 09/05/16 10/06/24 Onur Lai MD [address] [place] [address] PCP - General Internal Medicine 10/07/24 Hilda Almonte MD [address] [place] [address] Consulting Physician Obstetrics and Gynecology 01/06/13 Cornelio Alfaro MD [address] [place] [address] Consulting Physician Urology 01/28/20 08/24/23 Issa Valencia MD [address] [place] [address] Consulting Physician Urology 04/09/20 Rod Pablo MD [address] [facility] [address] [place] [address] Consulting Physician Gastroenterology 05/21/20 Laron Casey MD [address] [place] [address] Consulting Physician Sleep Medicine 12/06/20 Landry Conklin MD [address] [place] [address] Consulting Physician Ophthalmology 10/30/21 Mamta Rondon MD [address] [place] [address] Consulting Physician Dermatology 02/12/23 Lizeth Hampton MD [address] [facility] [place] [address] Consulting Physician Urology 05/22/23 documented as of this encounter
--- OUTSIDE RECORDS SUMMARY | 2025-02-27 14:04 | XMS_ITS | Encounter Summary ---
Author Organization [facility] Address [address] [place] [address] Phone Care Team Providers Care Rock Crusher Name Role Phone Aamir Middleton MD Primary Care Provider [phone] Hilda Almonte MD Unavailable [phone] Cornelio Alfaro MD Unavailable [phone] Issa Valencia MD Unavailable [phone] Rod Pablo MD Unavailable [phone] Laron Casey MD Unavailable Landry Conklin MD Unavailable [phone] Mamta Rondon MD Unavailable [phone] Lizeth Hampton MD Unavailable [phone] Onur Lai MD Primary Care Provider Encounter Details Date Type Department Care Team (Late st Contact Info) Description 06/22/2017 Orders Only [facility] [address] [place] [address] Aamir Middleton MD [address] [place] [address] Social History Tobacco Use Types Packs/Day Years Used Date Smoking Tobacco: Former Smokeless Tobacco: Never Alcohol Use Standard Drinks/Week Comments Yes 0 (1 standard drink = 0.6 oz pur e alcohol) Comments Unknown Sex and Gender Information Value Date Recorded Sex Assigned at Not on file 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 Gender Identity Not on file Sexual Orientation Not on file documented as of this encounter Plan of Treatment Not on file documented as of this encounter Procedures Procedure Name Priority Date/Time Associated Diagnosis Comments SCAN - LABS 06/22/2017 11:13 AM CHICKEN HANGER documented in this encounter Results * SCAN - LABS (06/22/2017 11:13 AM CHICKEN HANGER) Aamir Middleton MD Final Result documented in [...] documented as of this encounter Care Teams Rock Crusher Relationship Specialty Start Date End Date Aamir Middleton MD [address] [place] [address] PCP - General 09/05/16 10/06/24 Onur Lai MD [address] [place] [address] PCP - General Internal Medicine 10/07/24 Hilda Almonte MD [address] [place] [address] Consulting Physician Obstetrics and Gynecology 01/06/13 Cornelio Alfaro MD [address] [place] [address] Consulting Physician Urology 01/28/20 08/24/23 Issa Valencia MD [address] [place] [address] Consulting Physician Urology 04/09/20 Rod Pablo MD [address] [facility] [address] [place] [address] Consulting Physician Gastroenterology 05/21/20 Laron Casey MD [address] [place] [address] Consulting Physician Sleep Medicine 12/06/20 Landry Conklin MD [address] [place] [address] Consulting Physician Ophthalmology 10/30/21 Mamta Rondon MD [address] [place] [address] Consulting Physician Dermatology 02/12/23 Lizeth Hampton MD [address] [facility] [place] [address] Consulting Physician Urology 05/22/23 documented as of this encounter
--- OUTSIDE RECORDS SUMMARY | 2025-02-27 14:04 | XMS_ITS | Patient Health Record ---
Author Organization [employer] Address [address] [facility] [address] [address] Care Team Providers Care Adjuster And Inspector Name Role Phone Emi HANCOCK, Aamir Primary Care Provider Unavailab le Reason For Referral No Information Plan Of Treatment No Information Insurance Providers Payer Name Payer Address Payer Phone Subscriber Number Group Number Insured Name Patient Relationship to Insured Coverage Start Date Coverage End Date Blue Access Choice PPO E2 [address] [place] [address] [id number] AA null, null Unknown - patient's relationship to the insured is other than any listed
--- OUTSIDE RECORDS SUMMARY | 2025-02-27 14:04 | XMS_ITS | Encounter Summary ---
Author Organization [facility] Address [address] [place] [address] Phone Care Team Providers Care Building And Construction Manager Name Role Phone Aamir Middleton MD Primary Care Provider [phone] Hilda Almonte MD Unavailable [phone] Cornelio Alfaro MD Unavailable [phone] Issa Valencia MD Unavailable [phone] Rod Pablo MD Unavailable [phone] Laron Casey MD Unavailable Landry Conklin MD Unavailable [phone] Mamta Rondon MD Unavailable [phone] Lizeth Hampton MD Unavailable [phone] Onur Lai MD Primary Care Provider Encounter Details Date Type Department Care Team (Late st Contact Info) Description 07/14/2017 Orders Only [facility] [address] [place] [address] Aamir Middleton MD [address] [place] [address] Social History Tobacco Use Types Packs/Day Years Used Date Smoking Tobacco: Former Smokeless Tobacco: Never Alcohol Use Standard Drinks/Week Comments Yes 0 (1 standard drink = 0.6 oz pur e alcohol) Comments Unknown Sex and Gender Information Value Date Recorded Sex Assigned at Not on file 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 Gender Identity Not on file Sexual Orientation Not on file documented as of this encounter Plan of Treatment Not on file documented as of this encounter Procedures Procedure Name Priority Date/Time Associated Diagnosis Comments SCAN - LABS 07/14/2017 3:37 PM SUPERVISOR MILL documented in this encounter Results * SCAN - LABS (07/14/2017 3:37 PM SUPERVISOR MILL) Aamir Middleton MD Final Result documented in [...] documented as of this encounter Care Teams Building And Construction Manager Relationship Specialty Start Date End Date Aamir Middleton MD [address] [place] [address] PCP - General 09/05/16 10/06/24 Onur Lai MD [address] [place] [address] PCP - General Internal Medicine 10/07/24 Hilda Almonte MD [address] [place] [address] Consulting Physician Obstetrics and Gynecology 01/06/13 Cornelio Alfaro MD [address] [place] [address] Consulting Physician Urology 01/28/20 08/24/23 Issa Valencia MD [address] [place] [address] Consulting Physician Urology 04/09/20 Rod Pablo MD [address] [facility] [address] [place] [address] Consulting Physician Gastroenterology 05/21/20 Laron Casey MD [address] [place] [address] Consulting Physician Sleep Medicine 12/06/20 Landry Conklin MD [address] [place] [address] Consulting Physician Ophthalmology 10/30/21 Mamta Rondon MD [address] [place] [address] Consulting Physician Dermatology 02/12/23 Lizeth Hampton MD [address] [facility] [place] [address] Consulting Physician Urology 05/22/23 documented as of this encounter
--- OUTSIDE RECORDS SUMMARY | 2025-02-27 14:04 | XMS_ITS | Encounter Summary ---
Author Organization [facility] Address [address] [place] [address] Phone Care Team Providers Care Hothouse Worker Name Role Phone Aamir Middleton MD Primary Care Provider [phone] Hilda Almonte MD Unavailable [phone] Cornelio Alfaro MD Unavailable [phone] Issa Valencia MD Unavailable [phone] Rod Pablo MD Unavailable [phone] Laron Casey MD Unavailable Landry Conklin MD Unavailable [phone] Mamta Rondon MD Unavailable [phone] Lizeth Hampton MD Unavailable [phone] Onur Lai MD Primary Care Provider Encounter Details Date Type Department Care Team (Late st Contact Info) Description 10/21/2017 Orders Only [facility] [address] [place] [address] Aamir Middleton MD [address] [place] [address] Social History Tobacco Use Types Packs/Day Years Used Date Smoking Tobacco: Former Smokeless Tobacco: Never Alcohol Use Standard Drinks/Week Comments Yes 0 (1 standard drink = 0.6 oz pur e alcohol) Comments Unknown Sex and Gender Information Value Date Recorded Sex Assigned at Not on file 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 Gender Identity Not on file Sexual [...] documented as of this encounter Care Teams Hothouse Worker Relationship Specialty Start Date End Date Aamir Middleton MD [address] [place] [address] PCP - General 09/05/16 10/06/24 Onur Lai MD [address] [place] [address] PCP - General Internal Medicine 10/07/24 Hilda Almonte MD [address] [place] [address] Consulting Physician Obstetrics and Gynecology 01/06/13 Cornelio Alfaro MD [address] [place] [address] Consulting Physician Urology 01/28/20 08/24/23 Issa Valencia MD [address] [place] [address] Consulting Physician Urology 04/09/20 Rod Pablo MD [address] [place] [address] Consulting Physician Gastroenterology 05/21/20 Laron Casey MD [address] [place] [address] Consulting Physician Sleep Medicine 12/06/20 Landry Conklin MD [address] [place] [address] Consulting Physician Ophthalmology 10/30/21 Mamta Rondon MD [address] [place] [id number] Consulting Physician Dermatology 02/12/23 Lizeth Hampton MD [address] [facility] [place] [address] Consulting Physician Urology 05/22/23 documented as of this encounter
--- OUTSIDE RECORDS SUMMARY | 2025-02-27 14:04 | XMS_ITS | Clinical Summary ---
Author Organization [facility] Address [address] [address] Phone Care Team Providers Care Innovation Analyst Name Role Phone Unavailable Primary Care Provider Unavailabl e Social History Tobacco Use Types Packs/Day Years Used Date Smoking Tobacco: Never Assessed Comments Unknown Sex and Gender Information Value Date Recorded Sex Assigned at Not on file Legal Sex Female 3:03 PM CREDIT CARD CLERK Gender Identity Not on file Sexual Orientation Not on file Plan of Treatment Health Maintenance Due Date Last Done Comments Hepatitis C Virus (HCV) Screening 1955 TdaP Immunization 1955 Cologuard 2001 Immunochemical Fecal Occult Blood 2001 Pneumococcal Immunization (5 0+ years) (1 of 1 - PCV) 2006 Zoster Immunization (1 of 2) 2006 SARS-COV-2 Immunization (1 - season) 2024 Influenza Immunization (#1) 2025 Colonoscopy 04/05/2025 04/05/2015 Colorectal Cancer Screening 04/05/2025 Respiratory Syncytial Virus (RSV) Immunization (Adult) (1 - 1-dose 75+ series) 08/12/2031 Hepatitis B Immunization Aged Out No longer eligible based on patient's age to complete this topic Human Papillomavirus (HPV) Immunization Aged Out No longer eligible b ased [...]
--- OUTSIDE RECORDS SUMMARY | 2025-02-27 14:04 | XMS_ITS ---
Author Organization [facility] [address] Address [address] [place] [address] Phone Care Team Providers Care Registered Nurse Step Down Name Role Phone Hilda Almonte MD Unavailable [phone] Issa Valencia MD Unavailable [phone] Rod Pablo MD Unavailable [phone] Laron Casey MD Unavailable Landry Conklin MD Unavailable [phone] Mamta Rondon MD Unavailable [phone] Lizeth Hampton MD Unavailable [phone] Onur Lai MD Primary Care Provider Active Problems Problem Noted Date Diagnosed Date Aortic ejection murmur 07/22/2024 Assessment & Plan (07/22/2024 5:04 PM PHOTO RETOUCHER): New finding, uncertain cause or significance. She did have a stress echo about three years ago at [facility] that reported no major valvular abnormalities. We discussed the finding on today's exam and appropriate follow-up including echocardiogram and clinical re-evaluation. For now she wants to defer any additional evaluation. Dyspnea on exertion 02/06/2023 Overview (03/18/2023): Started after returning from [place]. Assessment & Plan (04/16/2023 1:40 PM PHOTO RETOUCHER): Shortly after her visit in the office [...] exertion since returning from a stay in [place] about a month ago. She is fine [...] scheduled in April, or sooner if needed. Low bone density 02/13/2022 Overview (08/20/2024): DEXA on 02/13/2022: Low bone mass, lumbar spine T score -1.5, [facility]. DEXA on 08/15/2024: AP spine T-score -1.4, total left hip-1.0, femoral neck-1.1, [facility]. Assessment & Plan (07/22/2024 3:38 PM PHOTO RETOUCHER): Chronic, diagnosed 2-3 years ago, currently managed with maintaining her vitamin-D level and calcium intake through diet. Unfortunately she has to take omeprazole because of a long segment of Barretts being treated by GI. This medication could affect her bone mineralization. She is scheduled for a follow-up bone density at [facility] next month and will call to discuss results. Assessment & Plan (04/16/2023 1:33 PM PHOTO RETOUCHER): She gets plenty of calcium in her diet and with a supplement taken at bedtime. Her vitamin-D intake is probably adequate, but there is no level on file which we ordered today. Herpes labialis 12/02/2021 Coronary artery disease invo lving [place] coronary artery of [place] heart without angina pectoris 10/15/2021 Overview (11/14/2021): Noted on CT chest done to evaluate for possible bladder cancer metastasis. Assessment & Plan (07/22/2024 5:05 PM PHOTO RETOUCHER): Chronic, present for 2-3 years, probably asymptomatic [...] same. Assessment & Plan (04/16/2023 1:32 PM PHOTO RETOUCHER): She has some risks for coronary disease but denies having chest pain or pressure. She stays very active. She had a normal stress echo about a year ago at [facility]. She does take pravastatin. Lipids are [...] 03/24/2023 Assessment & Plan (05/12/2022 3:29 PM PHOTO RETOUCHER): On a chest CT done to evaluate [...] the lower right breast on O view, [facility] screening mammogram, additional views and ultrasound ordered. Assessment & Plan (05/09/2021 2:05 PM PHOTO RETOUCHER): She is due for follow-up ultrasound of the right breast and bilateral screening mammograms. She will get those done this afternoon. Assessment & Plan (05/21/2020 11:38 AM PHOTO RETOUCHER): She had a right lower breast abnormality [...] 05/20/2020 Overview (03/24/2023): Treated with BCG at [facility]. Multiple follow up cystoscopies including 03/20/2023: - Predominantly denuded urothelium, unremarkable - Non-specific chronic inflammation and fibrosis in the lamina propria - No evidence of in situ or invasive carcinoma - Muscularis propria not identified - Prior treatment related changes identified Assessment & Plan (07/22/2024 3:34 PM PHOTO RETOUCHER): Chronic, diagnosed 4-5 years ago, in remission [...] time. Assessment & Plan (04/16/2023 1:34 PM PHOTO RETOUCHER): She had a recurrence of her bladder tumor earlier this year that was resected. She is getting monthly chemotherapy for another six months or so. She seems to be tolerating it well, although it could be contributing to her anemia. Assessment & Plan (05/12/2022 3:30 PM PHOTO RETOUCHER): She had a follow-up cystoscopy this morning and everything looked good. She will keep her follow ups with Urology. Assessment & Plan (11/14/2021 2:21 PM CDT): She is due for one more BCG treatment. So far there has been no evidence of recurrence. She will keep her follow ups with Urology. Assessment & Plan (05/09/2021 2:08 PM PHOTO RETOUCHER): She has nearly completed her treatment phase, [...] keep her follow ups with Oncology at [place]. She takes azo for few days after each treatment to deal with the bladder spasms. She gets this [id number]. Assessment & Plan (06/02/2020 1:03 PM PHOTO RETOUCHER): She is doing well with BCG treatments which she is currently getting at [facility]. She has a little urinary discomfort [...] details lacking. Menopausal symptoms 10/28/2019 Overview (10/28/2019): [facility]. Jumper's knee of left side 10/28/2019 Overview (10/28/2019): [facility], details lacking. Sensorineural hearing loss (SNHL) of left ear Overview (05/20/2020): Developed after a severe ear infection in 2017. Followed by ENT at [facility]. Actinic keratosis 07/27/2015 Inflamed seborrheic keratosis 07/27/2015 Skin benign neoplasm 07/27/2015 Gastroesophageal reflux disease with esophagitis 06/27/2015 Overview (09/11/2016): GERD Assessment & Plan (07/22/2024 5:05 PM PHOTO RETOUCHER): Chronic, present for 10 or more years, associated with Barretts esophagus. She will be due for a follow-up EGD this year and [facility]. In the meantime, continue omeprazole 20 mg daily. Assessment & Plan (03/18/2023 4:32 PM CDT): She noticed a recent increase in heartburn symptoms. She doubled the dose of omeprazole which helped. However, she still has epigastric bloating and early satiety. She will follow-up with the GI service at [facility]. Assessment & Plan (05/21/2020 11:36 AM PHOTO RETOUCHER): She has Bernstein's esophagitis and sees a GI doctor in [place] about every three years. She continues on omeprazole. Assessment & Plan (10/28/2019 1:18 PM CDT): She continues on omeprazole for acid reflux and a history of Bernstein's esophagus. Continue same. Refills sent. Assessment & Plan (06/12/2017 2:21 PM PHOTO RETOUCHER): She is on omeprazole for GE reflux [...] once a day. Follow-up with GI in [place]. EGD 08/16/2021: Long segment of Bernstein's (biopsied), [...] June. Assessment & Plan (05/02/2023 11:35 AM PHOTO RETOUCHER): She takes omeprazole. She has a follow-up [...] like to see Dr. Kamini Claros at [facility] so we will submit a consultation. Assessment & Plan (05/12/2022 3:28 PM PHOTO RETOUCHER): She continues on omeprazole. If she misses a dose, she can tell the difference. She had a follow-up EGD in August that showed a long segment of Bernstein's which was biopsied. She will keep her follow ups with GI at [facility]. Assessment & Plan (11/16/2021 10:36 AM CDT): She is being followed in [place] by GI. She had an upper endoscopy recently and will get us a copy. It showed persistent changes of Bernstein's. She has upper endoscopy about every two years. She denies difficulty or pain with swallowing Assessment & Plan (05/26/2021 4:42 PM PHOTO RETOUCHER): She takes omeprazole. She denies any new symptoms, but she might be due for a follow-up EGD. The last one we have on file is from five years ago. There was no dysplasia at that time. There was a long segment of Bernstein's. She may have had one in the interim in [place]. She will check with her GI doctors. [...] 10/05/2023 Assessment & Plan (04/16/2023 1:35 PM PHOTO RETOUCHER): She has a moderate microcytic anemia of [...] resume iron supplements in a different form. Chronic migraine without aur a with status migrainosus, not intractable 05/19/2012 Overview (01/07/2021): Overview: Migraine Last Assessment & Plan: Her morning headaches respond to Imitrex suggesting a migraine component. We gave her a refill. Continue to monitor. Assessment & Plan (07/22/2024 3:34 PM PHOTO RETOUCHER): Chronic, present for many years, controlled with [...] Psoriasis Assessment & Plan (05/12/2022 3:32 PM PHOTO RETOUCHER): She has mild patches of psoriasis that come and go. She applies triamcinolone ointment as needed. We sent in a refill. Hyperlipidemia associated with type 2 diabetes cherry lynch 04/26/2012 Overview (11/01/2017): Hyperlipidemia, on statin. Assessment & Plan (07/22/2024 3:34 PM PHOTO RETOUCHER): Chronic, controlled on pravastatin 20 mg daily. Continue same. Assessment & Plan (10/16/2023 1:39 PM CDT): Chronic, controlled. She takes pravastatin and is tolerating it well. We will check lipids before her next visit in six months. Assessment & Plan (04/16/2023 1:32 PM PHOTO RETOUCHER): Continue pravastatin. Assessment & Plan (05/12/2022 3:30 PM PHOTO RETOUCHER): She is tolerating generic Pravachol. Continue same. We will check fasting labs before her next visit in about 11 months. Assessment & Plan (11/14/2021 2:20 PM CDT): LDL is still slightly elevated despite being on pravastatin. We discussed possibly changing to a more potent statin such as atorvastatin or rosuvastatin, and she will read about them. Assessment & Plan (05/09/2021 2:07 PM PHOTO RETOUCHER): She is on generic Pravachol, tolerating well. We will check lipids before her next follow-up in six months. Assessment & Plan (11/01/2020 10:06 AM CDT): She takes generic Pravachol. We will check a follow-up lipid profile. Assessment & Plan (10/28/2019 1:18 PM CDT): She is on pravastatin, tolerating well. Cardiovascular risk appears to be controlled. Assessment & Plan (07/03/2019 4:33 PM PHOTO RETOUCHER): She had another cholesterol panel checked after [...] periodically. Assessment & Plan (06/12/2017 2:20 PM PHOTO RETOUCHER): Status of her lipids is unknown. I have minimal labs available to review. Will get a follow-up lipid panel. She does take the Zocor. Continue same. Follow up in six months. Type 2 diabetes mellitus without complication Overview (09/10/2016): Diabetes mellitus Assessment & Plan (07/22/2024 3:35 PM PHOTO RETOUCHER): Chronic, present for 10 or more years, controlled on a low dose of metformin 500 mg twice daily. Continue same. Follow-up labs can be done now or when she finds her new provider in [place]. Assessment & Plan (10/16/2023 1:43 PM CDT): [...] 10/14/2023 Assessment & Plan (04/16/2023 1:36 PM PHOTO RETOUCHER): She does not check blood sugars at [...] 03/24/2023 Assessment & Plan (05/12/2022 3:33 PM PHOTO RETOUCHER): Diabetic control generally is very good. She [...] 11/11/2021 Assessment & Plan (05/09/2021 2:09 PM PHOTO RETOUCHER): She is due for a hemoglobin A1c. [...] needed. Assessment & Plan (06/02/2020 1:02 PM PHOTO RETOUCHER): Fasting blood sugars are generally around 125 [...] so. Assessment & Plan (07/03/2019 4:36 PM PHOTO RETOUCHER): Diabetes appears to be well controlled. She [...] time. Assessment & Plan (05/17/2018 5:12 PM PHOTO RETOUCHER): Blood sugars are in a good range. [...] months. Assessment & Plan (06/12/2017 2:20 PM PHOTO RETOUCHER): She is not checking blood sugars at home. We will get her a glucometer so she can do that. I do not have a hemoglobin A1c on file, so she will get that drawn. She prefers to have them done at her place of employment which is the [facility]. She will see an eye doctor annually. Follow-up here in about six months. Anxiety 02/13/2010 Motion sickness 12/06/2009 Assessment & Plan (11/01/2020 10:05 AM CDT): She needed a refill of scopalamine patch which she uses for motion sickness on trips. Assessment & Plan (06/02/2020 1:02 PM PHOTO RETOUCHER): She plans to go boating in [place] this winter and needs scopalamine to prevent motion sickness. We sent in a refill. Acquired hypothyroidism 01/07/2008 Overview (11/16/2021): She is on a stable dose of replacement. Assessment & Plan (07/22/2024 3:32 PM PHOTO RETOUCHER): Chronic, present for 15-20 years, controlled on levothyroxine 100 mcg daily. Continue same. Assessment & Plan (04/16/2023 1:30 PM PHOTO RETOUCHER): She is on a stable dose of [...] soon. Assessment & Plan (05/29/2022 8:33 AM PHOTO RETOUCHER): She is on a stable dose of [...] 11/11/2021 Assessment & Plan (05/09/2021 2:06 PM PHOTO RETOUCHER): She is on a stable dose of [...] medication. Assessment & Plan (07/22/2024 5:07 PM PHOTO RETOUCHER): Chronic, present for decades, she reports symptoms [...] needed. Assessment & Plan (04/16/2023 1:36 PM PHOTO RETOUCHER): She is doing well on Celexa 10 mg every morning. Continue same. Assessment & Plan (05/12/2022 3:31 PM PHOTO RETOUCHER): She says her mood is good on her current dose of Wellbutrin XL 150 mg daily and Celexa 10 mg nightly. She says single agent therapy does not work for her. Continue same. Assessment & Plan (11/14/2021 2:21 PM CDT): Her mood is good. She will continue citalopram and bupropion. Assessment & Plan (05/09/2021 2:09 PM PHOTO RETOUCHER): Her mood is good. She is somewhat [...] (05/20/2020): Added automatically from request for surgery [id number], diagnosed with high grade, noninvasive bladder cancer, resected. Gross hematuria 01/09/2020 05/20/2020 Overview (05/20/2020): Due to bladder cancer, s/p resection. Assessment & Plan (01/22/2020 10:49 AM CDT): She was in the [place] last week and had a great time. [...] gyneco logical examination 10/28/2019 10/28/2019 Overview (10/28/2019): [facility] [place] (obstructive sleep apnea) 11/11/2017 03/18/2023 Overview (03/18/2023): See home sleep study read by Dr. Cano. Was on CPAP, then lost weight and no longer needed to use it. Assessment & Plan (05/09/2021 2:08 PM PHOTO RETOUCHER): She is now on CPAP. Sees Dr. Laron Casey at [facility]. She thinks there has been improvement in her daytime alertness. Assessment & Plan (05/21/2020 11:35 AM PHOTO RETOUCHER): She finally went to see Dr. Cano and got started on CPAP. She is very pleased with the results. Continue same. Assessment & Plan (06/22/2019 5:23 PM PHOTO RETOUCHER): She had a sleep study about two [...] months. Assessment & Plan (06/12/2017 2:19 PM PHOTO RETOUCHER): She is feeling very well. She has adjusted the doses of her medications and is tolerating them well. Continue same. Refills will be provided.
--- OUTSIDE RECORDS SUMMARY | 2025-02-27 14:04 | XMS_ITS | Clinical Summary ---
Author Organization [facility] [address] [employer] Address [address] [place] [address] Phone Care Team Providers Care Distillery Miller Name Role Phone Hilda Almonte MD Unavailable [phone] Issa Valencia MD Unavailable [phone] Rod Pablo MD Unavailable [phone] Laron Casey MD Unavailable Landry Conklin MD Unavailable [phone] Mamta Rondon MD Unavailable [phone] Lizeth Hampton MD Unavailable [phone] Onur Lai MD Primary Care Provider Allergies Active Allergy Reactions Criticality Noted Date Comments Codeine Headache Low 05/31/2018 Latex Rash,Cough Medium 05/31/2018 Nickel Rash,Redness Medium 05/31/2018 Penicillin G Rash Medium Medications aspirin 81 mg enteric coated tablet Take 1 tablet (81 mg total) by mouth daily 025 Active atorvastatin (LIPITOR) 20 mg tablet Take 1 tablet (20 mg total) by mouth daily 90 tablet 4 025 2025 Active metFORMIN (GLUCOPHAGE) 500 mg tabletIndications :Type 2 diabetes mellitus without complication, unspecified whether long term care pharmacist insulin use (HCC) Take 1 tablet (500 mg total) by mouth 2 (two) times a day with meals 180 tablet 2 Active SUMAtriptan (IMITREX) 100 mg tabletIndications :Migraine without aura and without status migrainosus, not intractable Take 1 tablet (100 mg total) by mouth daily as needed for migraine 27 tablet 3 Active fluticasone propionate (FLONASE) 50 mcg/actuation nasal spray Administer 2 sprays into each nostril daily 3 each 4 Active erenumab-aooe (AIMOVIG) 70 mg/mL auto-injector subcutaneous injection Inject 1 mL (70 mg total) under the skin every 30 (thirty) days 1 mL 5 025 2024 Active omeprazole (PriLOSEC) 20 mg capsuleIndication s:Gastroesophagea l reflux disease with esophagitis Take 1 capsule (20 mg total) by mouth daily 90 capsule Active citalopram (CeleXA) 20 mg tabletIndications :Anxiety Take 1 tablet (20 mg total) by mouth daily RAZA POON 90 tablet 1 025 Active ciclopirox (PENLAC) 8 % solution Apply topically nightly Active levothyroxine (SYNTHROID) 100 mcg tabletIndications :Acquired hypothyroidism Take 1 tablet (100 mcg total) 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 90 tablet 3 025 2025 Active amitriptyline (ELAVIL) 10 mg tabletIndications :Migraine Prevention Take 1 tablet (10 mg total) by mouth nightly 90 tablet 3 021 2020 Discontinued levothyroxine (SYNTHROID) 100 mcg tabletIndications :Acquired hypothyroidism TAKE 1 TABLET EARLY MORNINGBEFORE BREAKFAST 90 tablet 1 025 2024 Discontinued(R eorder) estrogens, conjugated, (PREMARIN) vaginal creamIndications: Urinary symptom or sign Insert 0.5 g into the vagina 3 (three) times a week 30 g 11 025 2024 Discontinued Hospital, Clinic, or Other Facility Administered Medication Ordered Dose Route Frequency Start Date End Date Status lidocaine-EPINEPHrin e (XYLOCAINE with EPI) 1 %-1:100,000 injection 3 mLIndications:Admini stration of Local Anesthesia 3 mL One-Time Injection 02/08/2025 02/08/2025 Ended Active Problems Problem Noted Date Diagnosed Date Aortic ejection murmur 07/22/2024 Assessment & Plan (07/22/2024 5:04 PM MANAGER SPANISH): New finding, uncertain cause or significance. She did have a stress echo about three years ago at [facility] that reported no major valvular abnormalities. We discussed the finding on today's exam and appropriate follow-up including echocardiogram and clinical re-evaluation. For now she wants to defer any additional evaluation. Dyspnea on exertion 02/06/2023 Overview (03/18/2023): Started after returning from [place]. Assessment & Plan (04/16/2023 1:40 PM MANAGER SPANISH): Shortly after her visit in the office [...] exertion since returning from a stay in [place] about a month ago. She is fine [...] bone mass, lumbar spine T score -1.5, [facility]. DEXA on 08/15/2024: AP spine T-score -1.4, total left hip-1.0, femoral neck-1.1, [facility]. Assessment & Plan (07/22/2024 3:38 PM MANAGER SPANISH): Chronic, diagnosed 2-3 years ago, currently managed with maintaining her vitamin-D level and calcium intake through diet. Unfortunately she has to take omeprazole because of a long segment of Barretts being treated by GI. This medication could affect her bone mineralization. She is scheduled for a follow-up bone density at [facility] next month and will call to discuss results. Assessment & Plan (04/16/2023 1:33 PM MANAGER SPANISH): She gets plenty of calcium in her diet and with a supplement taken at bedtime. Her vitamin-D intake is probably adequate, but there is no level on file which we ordered today. Herpes labialis 12/02/2021 Coronary artery disease invo lving la posta coronary artery of la posta heart without angina pectoris 10/15/2021 Overview (11/14/2021): Noted on CT chest done to evaluate for possible bladder cancer metastasis. Assessment & Plan (07/22/2024 5:05 PM MANAGER SPANISH): Chronic, present for 2-3 years, probably asymptomatic [...] same. Assessment & Plan (04/16/2023 1:32 PM MANAGER SPANISH): She has some risks for coronary disease but denies having chest pain or pressure. She stays very active. She had a normal stress echo about a year ago at [facility]. She does take pravastatin. Lipids are [...] 03/24/2023 Assessment & Plan (05/12/2022 3:29 PM MANAGER SPANISH): On a chest CT done to evaluate [...] the lower right breast on O view, [facility] screening mammogram, additional views and ultrasound ordered. Assessment & Plan (05/09/2021 2:05 PM MANAGER SPANISH): She is due for follow-up ultrasound of the right breast and bilateral screening mammograms. She will get those done this afternoon. Assessment & Plan (05/21/2020 11:38 AM MANAGER SPANISH): She had a right lower breast abnormality [...] (03/24/2023): Treated with BCG at [facility]. Multiple follow up cystoscopies including 03/20/2023: - Predominantly denuded urothelium, unremarkable - Non-specific chronic inflammation and fibrosis in the lamina propria - No evidence of in situ or invasive carcinoma - Muscularis propria not identified - Prior treatment related changes identified Assessment & Plan (07/22/2024 3:34 PM MANAGER SPANISH): Chronic, diagnosed 4-5 years ago, in remission [...] time. Assessment & Plan (04/16/2023 1:34 PM MANAGER SPANISH): She had a recurrence of her bladder tumor earlier this year that was resected. She is getting monthly chemotherapy for another six months or so. She seems to be tolerating it well, although it could be contributing to her anemia. Assessment & Plan (05/12/2022 3:30 PM MANAGER SPANISH): She had a follow-up cystoscopy this morning and everything looked good. She will keep her follow ups with Urology. Assessment & Plan (11/14/2021 2:21 PM CDT): She is due for one more BCG treatment. So far there has been no evidence of recurrence. She will keep her follow ups with Urology. Assessment & Plan (05/09/2021 2:08 PM MANAGER SPANISH): She has nearly completed her treatment phase, [...] keep her follow ups with Oncology at [place]. She takes azo for few days after each treatment to deal with the bladder spasms. She gets this [id number]. Assessment & Plan (06/02/2020 1:03 PM MANAGER SPANISH): She is doing well with BCG treatments which she is currently getting at [facility]. She has a little urinary discomfort [...] evaluation. Stress incontinence, female 10/28/2019 Overview (10/28/2019): [facility] Pyriformis syndrome, right 10/28/2019 Overview (10/28/2019): [facility], details lacking. Menopausal symptoms 10/28/2019 Overview (10/28/2019): [facility]. Jumper's knee of left side 10/28/2019 Overview (10/28/2019): [facility], details lacking. Sensorineural hearing loss (SNHL) of left ear Overview (05/20/2020): Developed after a severe ear infection in 2017. Followed by ENT at [facility]. Actinic keratosis 07/27/2015 Inflamed seborrheic keratosis 07/27/2015 Skin benign neoplasm 07/27/2015 Gastroesophageal reflux disease with esophagitis 06/27/2015 Overview (09/11/2016): GERD Assessment & Plan (07/22/2024 5:05 PM MANAGER SPANISH): Chronic, present for 10 or more years, associated with Barretts esophagus. She will be due for a follow-up EGD this year and [facility]. In the meantime, continue omeprazole 20 mg daily. Assessment & Plan (03/18/2023 4:32 PM CDT): She noticed a recent increase in heartburn symptoms. She doubled the dose of omeprazole which helped. However, she still has epigastric bloating and early satiety. She will follow-up with the GI service at [facility]. Assessment & Plan (05/21/2020 11:36 AM MANAGER SPANISH): She has Bernstein's esophagitis and sees a GI doctor in [place] about every three years. She continues on omeprazole. Assessment & Plan (10/28/2019 1:18 PM CDT): She continues on omeprazole for acid reflux and a history of Bernstein's esophagus. Continue same. Refills sent. Assessment & Plan (06/12/2017 2:21 PM MANAGER SPANISH): She is on omeprazole for GE reflux [...] once a day. Follow-up with GI in [place]. EGD 08/16/2021: Long segment of Bernstein's (biopsied), large Hiatal Hernia, Rod Pablo MD, [facility]. Assessment & Plan (10/16/2023 1:39 [...] June. Assessment & Plan (05/02/2023 11:35 AM MANAGER SPANISH): She takes omeprazole. She has a follow-up with [facility] in a few months to re-evaluate [...] like to see Dr. Kamini Claros at [facility] so we will submit a consultation. Assessment & Plan (05/12/2022 3:28 PM MANAGER SPANISH): She continues on omeprazole. If she misses a dose, she can tell the difference. She had a follow-up EGD in August that showed a long segment of Bernstein's which was biopsied. She will keep her follow ups with GI at [facility]. Assessment & Plan (11/16/2021 10:36 AM CDT): She is being followed in [place] by GI. She had an upper endoscopy recently and will get us a copy. It showed persistent changes of Bernstein's. She has upper endoscopy about every two years. She denies difficulty or pain with swallowing Assessment & Plan (05/26/2021 4:42 PM MANAGER SPANISH): She takes omeprazole. She denies any new symptoms, but she might be due for a follow-up EGD. The last one we have on file is from five years ago. There was no dysplasia at that time. There was a long segment of Bernstein's. She may have had one in the interim in [place]. She will check with her GI doctors. [...] 10/05/2023 Assessment & Plan (04/16/2023 1:35 PM MANAGER SPANISH): She has a moderate microcytic anemia of [...] monitor. Assessment & Plan (07/22/2024 3:34 PM MANAGER SPANISH): Chronic, present for many years, controlled with [...] Psoriasis Assessment & Plan (05/12/2022 3:32 PM MANAGER SPANISH): She has mild patches of psoriasis that come and go. She applies triamcinolone ointment as needed. We sent in a refill. Hyperlipidemia associated with type 2 diabetes cherry lynch 04/26/2012 Overview (11/01/2017): Hyperlipidemia, on statin. Assessment & Plan (07/22/2024 3:34 PM MANAGER SPANISH): Chronic, controlled on pravastatin 20 mg daily. Continue same. Assessment & Plan (10/16/2023 1:39 PM CDT): Chronic, controlled. She takes pravastatin and is tolerating it well. We will check lipids before her next visit in six months. Assessment & Plan (04/16/2023 1:32 PM MANAGER SPANISH): Continue pravastatin. Assessment & Plan (05/12/2022 3:30 PM MANAGER SPANISH): She is tolerating generic Pravachol. Continue same. We will check fasting labs before her next visit in about 11 months. Assessment & Plan (11/14/2021 2:20 PM CDT): LDL is still slightly elevated despite being on pravastatin. We discussed possibly changing to a more potent statin such as atorvastatin or rosuvastatin, and she will read about them. Assessment & Plan (05/09/2021 2:07 PM MANAGER SPANISH): She is on generic Pravachol, tolerating well. We will check lipids before her next follow-up in six months. Assessment & Plan (11/01/2020 10:06 AM CDT): She takes generic Pravachol. We will check a follow-up lipid profile. Assessment & Plan (10/28/2019 1:18 PM CDT): She is on pravastatin, tolerating well. Cardiovascular risk appears to be controlled. Assessment & Plan (07/03/2019 4:33 PM MANAGER SPANISH): She had another cholesterol panel checked after [...] periodically. Assessment & Plan (06/12/2017 2:20 PM MANAGER SPANISH): Status of her lipids is unknown. I have minimal labs available to review. Will get a follow-up lipid panel. She does take the Zocor. Continue same. Follow up in six months. Type 2 diabetes mellitus without complication Overview (09/10/2016): Diabetes mellitus Assessment & Plan (07/22/2024 3:35 PM MANAGER SPANISH): Chronic, present for 10 or more years, controlled on a low dose of metformin 500 mg twice daily. Continue same. Follow-up labs can be done now or when she finds her new provider in [place]. Assessment & Plan (10/16/2023 1:43 PM CDT): [...] 10/14/2023 Assessment & Plan (04/16/2023 1:36 PM MANAGER SPANISH): She does not check blood sugars at [...] 03/24/2023 Assessment & Plan (05/12/2022 3:33 PM MANAGER SPANISH): Diabetic control generally is very good. She [...] 11/11/2021 Assessment & Plan (05/09/2021 2:09 PM MANAGER SPANISH): She is due for a hemoglobin A1c. [...] needed. Assessment & Plan (06/02/2020 1:02 PM MANAGER SPANISH): Fasting blood sugars are generally around 125 [...] so. Assessment & Plan (07/03/2019 4:36 PM MANAGER SPANISH): Diabetes appears to be well controlled. She [...] time. Assessment & Plan (05/17/2018 5:12 PM MANAGER SPANISH): Blood sugars are in a good range. [...] months. Assessment & Plan (06/12/2017 2:20 PM MANAGER SPANISH): She is not checking blood sugars at home. We will get her a glucometer so she can do that. I do not have a hemoglobin A1c on file, so she will get that drawn. She prefers to have them done at her place of employment which is the [facility]. She will see an eye doctor annually. Follow-up here in about six months. Anxiety 02/13/2010 Motion sickness 12/06/2009 Assessment & Plan (11/01/2020 10:05 AM CDT): She needed a refill of scopalamine patch which she uses for motion sickness on trips. Assessment & Plan (06/02/2020 1:02 PM MANAGER SPANISH): She plans to go boating in [place] this winter and needs scopalamine to prevent motion sickness. We sent in a refill. Acquired hypothyroidism 01/07/2008 Overview (11/16/2021): She is on a stable dose of replacement. Assessment & Plan (07/22/2024 3:32 PM MANAGER SPANISH): Chronic, present for 15-20 years, controlled on levothyroxine 100 mcg daily. Continue same. Assessment & Plan (04/16/2023 1:30 PM MANAGER SPANISH): She is on a stable dose of [...] soon. Assessment & Plan (05/29/2022 8:33 AM MANAGER SPANISH): She is on a stable dose of [...] 11/11/2021 Assessment & Plan (05/09/2021 2:06 PM MANAGER SPANISH): She is on a stable dose of [...] medication. Assessment & Plan (07/22/2024 5:07 PM MANAGER SPANISH): Chronic, present for decades, she reports symptoms [...] needed. Assessment & Plan (04/16/2023 1:36 PM MANAGER SPANISH): She is doing well on Celexa 10 mg every morning. Continue same. Assessment & Plan (05/12/2022 3:31 PM MANAGER SPANISH): She says her mood is good on her current dose of Wellbutrin XL 150 mg daily and Celexa 10 mg nightly. She says single agent therapy does not work for her. Continue same. Assessment & Plan (11/14/2021 2:21 PM CDT): Her mood is good. She will continue citalopram and bupropion. Assessment & Plan (05/09/2021 2:09 PM MANAGER SPANISH): Her mood is good. She is somewhat [...] (05/20/2020): Added automatically from request for surgery [id number], diagnosed with high grade, noninvasive bladder cancer, resected. Gross hematuria 01/09/2020 05/20/2020 Overview (05/20/2020): Due to bladder cancer, s/p resection. Assessment & Plan (01/22/2020 10:49 AM CDT): She was in the [place] last week and had a great time. [...] gyneco logical examination 10/28/2019 10/28/2019 Overview (10/28/2019): [facility] [place] (obstructive sleep apnea) 11/11/2017 03/18/2023 Overview (03/18/2023): See home sleep study read by Dr. Cano. Was on CPAP, then lost weight and no longer needed to use it. Assessment & Plan (05/09/2021 2:08 PM MANAGER SPANISH): She is now on CPAP. Sees Dr. Laron Casey at [facility]. She thinks there has been improvement in her daytime alertness. Assessment & Plan (05/21/2020 11:35 AM MANAGER SPANISH): She finally went to see Dr. Cano and got started on CPAP. She is very pleased with the results. Continue same. Assessment & Plan (06/22/2019 5:23 PM MANAGER SPANISH): She had a sleep study about two [...] months. Assessment & Plan (06/12/2017 2:19 PM MANAGER SPANISH): She is feeling very well. She has adjusted the doses of her medications and is tolerating them well. Continue same. Refills will be provided. Encounters Date Type Department Care Team Description 02/16/2025 Telephone [facility] Primary Care at [address] [phone] Onur Lai MD Medication Problem (Aimovig Inj denied) 02/14/2025 Telephone [facility] Primary [facility] at [address] [phone] Fariha Zazueta MA 02/14/2025 Telephone [facility] Primary Care at [address] [phone] Onur Lai MD Med Refill 02/09/2025 Results Follow-Up [facility] at [address] [phone] Onur Lai MD Thyroid Function [place], Hemoglobin A1c, Lipid panel, Additional followed-up results: 4 02/08/2025 1:45 PM CDT Lab [facility] at [address] [phone] Acquired hypothyroidism; Type 2 diabetes mellitus without complication, without long-term current use of insulin (HCC) 02/08/2025 1:00 PM CDT Office Visit [facility] at [address] [phone] Onur Lai MD Encounter for preventative adult health care examination (Primary Dx); Acquired hypothyroidism; Type 2 diabetes mellitus without complication, without long-term current use of insulin (HCC); Foreign body (FB) in soft tissue; Hyperlipidemia associated with type 2 diabetes mellitus (HCC); Bernstein's esophagus without dysplasia; Chronic migraine without aura with status migrainosus, not intractable; Coronary artery disease involving la posta coronary artery of la posta heart without angina pectoris 02/08/2025 9:24 AM CDT - 02/08/2025 11:59 PM CDT Hospital Encounter [facility] [address] [place] [address] Discharge Disposition: Discharge to home or self care 11/28/2024 Results Follow-Up [facility] Medicine Urology [address] [place] [address] Lizeth Hampton MD Urine culture Urine, clean voided from Last 3 Months Immunizations Immunization Administration [...] High D ose, Split, Preservative Free, Intramuscular 02/10/2025,04/03/2024 Influenza, Trivalent, IM (MDV) 03/09/2021 Influenza, Trivalent, [...] INCONTINENCE SURGERY 01/06/2013 Cystocele, incontinence: bladder tie-up, Dr. Hilda Toledo. PILONIDAL CYSTECTOMY ? Details lacking. BREAST BIOPSY 06/08/2007 - 06/07/2008 Left Details lacking. SPLENECTOMY 06/08/1983 - 06/07/1984 Splenectomy due to trauma HYSTERECTOMY 11/29/2012 [facility], sacrospinous colpopexy, enterocele repair, anterior and posterior colporrhaphy with cystocele and rectocele repair, colpoperineorrhaph y, revision of abdominal scar. Dr. Almonte. ESOPHAGOGASTRODUODENOSCOPY 06/15/2015 Bernstein's esophagitis without dysplasia. [facility], Dr. J Luis Marques. COLONOSCOPY 06/15/2015 A tortuous colon, otherwise normal, Dr. J Luis Marques, [facility]. CYSTOSCOPY 01/16/2020 Multiple bladder tumors, Office procedure, Dr. Alfaro. SECTION 06/08/1988 - 06/07/1989 TRANSURETHRAL RESECTION OF BLADDER TUMOR 02/24/2020 CYSTOSCOPY - TRANSURETHRAL RESECTION BLADDER TUMOR, high-grade, noninvasive, Dr. Alfaro, [facility]. CYSTOSCOPY 08/13/2020 Office procedure, Dr. Valencia [place]. Multiple papillary lesions, the largest about 1.5 [...] Bernstein's, large Hiatal Hernia, Rod Pablo MD, [facility]. CYSTOSCOPY 02/17/2022 N/A Normal, Issa Valencia MD, [...] Issa Valencia. CYSTOSCOPY 03/20/2023 N/A Treatment-related changes, Cecily [facility]. MAMMOGRAPHY 05/13/2023 Bilateral Negative, [facility]. CYSTOSCOPY 02/20/2023 N/A Office proceedure, Dr. Hampton. Abnormal lesion near the bladder dome, otherwise normal. CYSTOSCOPY 05/22/2023 N/A Lizeth Hampton MD, office procedure. Normal cystoscopic evaluation, Cytology pending CYSTOSCOPY 08/21/2023 Office procedure, Lizeth Murray, normal MAMMOGRAPHY 05/27/2024 Bilateral Negative, [facility]. CYSTOSCOPY 03/04/2024 N/A Normal surveillance cystoscopy, Lizeth Murray COSMETIC SURGERY Blepharoplasty 2005 SPLENECTOMY, TOTAL 1984 ABDOMINAL SURGERY 1984 DEXA SCAN 08/15/2024 N/A Low bone density, [facility]. CYSTOSCOPY 05/20/2024 Normal surveillance cystoscopy, Lizeth Hampton. Medical History Medical History Date Comments Bernstein's [...] scopolamine effective Urinary retention 12/21/2012 [facility], had sheree er tie up, Dr. Hilda Almonte. Gross hematuria 01/09/2020 Due to bladder c ancer, s/p resection. Bladder mass 01/17/2020 Added automatica lly from request for surgery [id number], diagnosed with high grade, noninvasive bladder cancer, [...] Used Date Smoking Tobacco: Former Cigarettes 1 10.3 0 02/20/1974 - 05/31/1984 Smokeless Tobacco: Never Tobacco Cessation:Counseling Given: Not Answered Alcohol Use Standard Drinks/Week Comments Yes 1 (1 standard drink = 0.6 oz pur e alcohol) daily 1 shot PHQ-2 Answer Date Recorded PHQ-2 Total Score (If total score is 3 or more points, staff should administer the PHQ-9) 0 02/08/2025 PHQ-9 Answer Date Recorded PHQ-9 Total Score 5 10/16/2023 AUDIT-C Answer Date Recorded Q1: How often do you have a drink containing alc ohol? 2-4 times a month 02/08/2025 Q2: How many drinks containi ng alcohol do you have on a typical day when you are drinking? 1 or 2 02/08/2025 Q3: How often do you have si x or more drinks on one occasion? Never 02/08/2025 Personal Safety Answer Date Recorded Have you ever been in or are you currently in a harmful physical or emotional relationship or is someone making you feel afraid or unsafe? 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 e Not on file Not on file Obstetrics History Para Term AB IAB SAB Ectopic Multiple Livin g Live Births 2 2 2 Date Outcome GA Total Labor Labor/2nd/3rd Weight Sex Type Anes PTL Rissa A1 A5 Name Clin Term Term Last Filed Vital Signs Vital Sign Reading Time Taken Comments Blood Pressure 110/68 02/08/2025 12:57 PM CDT Pulse 76 02/08/2025 12:57 PM CDT Temperature 36.6 C (97.8 F) 07/22/2024 2:30 PM MANAGER SPANISH Respiratory Rate 16 07/22/2024 2:30 PM MANAGER SPANISH Oxygen Saturation 97% 02/08/2025 12:57 PM CDT Inhaled Oxygen Concentration - - Weight 60 kg (132 lb 3.2 oz) 02/08/2025 12:57 PM CDT Height 154.9 cm (5' 0.98) 02/08/2025 12:57 PM C DT Body Mass Index 24.99 02/08/2025 12:57 PM CDT Plan of Treatment Health Maintenance Due Date Last Done Comments Meningococcal B Vaccine (3 o f 4 - Increased Risk Bexsero 3-dose series) 04/25/2023 04/25/2022, 03/07/2022 Osteoporosis Screening-Bone Density Scan 02/14/2024 02/13/2022 Foot Exam 10/15/2024 10/16/2023, 110 02/2023, 05/12/2022, Additional history exists Covid-19 Vaccine (2024-2 6 season) 2025 11/02/2024, 02/19/2024, 03/06/2023, Additional history exists Dilated Eye Exam 05/19/2025 05/19/2024, , 09/07/2020, Additional history exists Breast Cancer Screening-Mammogram 05/27/2025 05/27/2024, 05/13/2023, 05/12/2022, Additional history exists Colon Cancer Screening-Colonoscopy 06/15/2025 06/15/2015 Hemoglobin A1C 08/08/2025 02/08/2025, 050 07/2024, 10/14/2023, Additional history exists Albumin Creatinine Ratio, Urine 10/07/2025 10/07/2024, 11/11/2021, 11/22/2020, Additional history exists Depression Screening 02/08/2026 02/08/2025, 10/07/2024, 10/16/2023, Additional history exists Fall Risk Assessment 02/08/2026 02/08/2025, 07/22/2024, 04/16/2023, Additional history exists Lipid Panel 02/08/2026 02/08/2025, 05/0 07/2024, 03/24/2023, Additional history exists Well Visit 65+ 02/08/2026 02/08/2025, 110 02/2023, 11/14/2021, Additional history exists eGFR 02/08/2026 02/08/2025, 050 07/2024, 03/24/2023, Additional history exists DTaP/Tdap/Td Vaccine (3 - [...] 04/12/2015, Additional history exists Influenza Vaccine Completed 02/10/2025, , 03/06/2023, Additional history exists Procedures Procedure Name Priority Date/Time Associated Diagnosis Comments DIFFERENTIAL AUTO Routine 02/08/2025 1:4 7 PM CDT Type 2 diabetes mellitus without complication, without long-term current use of insulin (HCC) EGFR Routine 02/08/2025 1:47 PM CDT Type 2 diabetes mellitus without complication, without long-term current use of insulin (HCC) COMPREHENSIVE METABOLIC PANEL Routine 02/08/2025 1:47 PM CDT Type 2 diabetes mellitus without complication, without long-term current use of insulin (HCC) CBC WITH AUTO DIFFERENTIAL Routine 02/08/2025 1:47 PM CDT Type 2 diabetes mellitus without complication, without long-term current use of insulin (HCC) LIPID PANEL Routine 02/08/2025 1:47 PM CDT Type 2 diabetes mellitus without complication, without long-term current use of insulin (HCC) HEMOGLOBIN A1C Routine 02/08/2025 1:47 PM CDT Type 2 diabetes mellitus without complication, without long-term current use of insulin (HCC) THYROID FUNCTION CASCADE Routine 02/08/2025 1:47 PM CDT Acquired hypothyroidism [place] I&D HEMATOMA SEROMA/FLUID COLLECTION Routine 02/08/2025 1:00 PM CDT Foreign body (FB) in soft tissue ALBUMIN CREATININE RATIO, URINE Routine 10/07/2024 11:03 AM CDT Type 2 diabetes mellitus without complication, without long-term current use of insulin (HCC) SCREENING MAMMOGRAM BILATERAL W EBRT Schedule Routine, Read Routine (OP Routine) 05/27/2024 1:24 PM MANAGER SPANISH Screening mammogram, encounter for DIABETES EYE EXAM Routine 05/19/2024 8:33 AM MANAGER SPANISH DEXA SCAN Routine 02/13/2022 COLONOSCOPY Routine 06/15/2015 HEPATITIS C SCREENING Routine 10/27/2012 from Last 3 Months or Most Recently Relevant to Health Maintenance Results * eGFR (02/08/2025 1:47 PM CDT) eGFR >90 >=60 mL/min/1. 73 m2 Comment: Interpretive Data Reference Interval Normal >/= 90 mL/min/1.73m2 Mildly decreased* 60 - 89 mL/min/1.73m2 Mildly to moderately decreased 45 - 59 mL/min/1.73m2 Moderately to severely decreased 30 - 44 mL/min/1.73m2 Severely decreased 15 - 29 mL/min/1.73m2 Kidney Failure < 15 mL/min/1.73m2 *Relative to young adult level Estimated glomerular filtration rate is determined by the 2020 CKD-EPI equation recommended by the National Kidney Foundation (A Unifying Approach to GFR Estimation: Recommendations of the NKF-ASK Task Force on Reassessing the Inclusion of Race in Diagnosing Kidney Disease, JASN 2020). The CKD-EPI equation should not be used for patients with unstable renal function and has not been validated in children and those over 70. Current interpretive data was last reviewed 2021. Blood 02/08/2025 1:47 PM CDT 02/08/2025 6:43 PM CDT us Onur Lai MD LAB BLOOD ORDERABLES Fi nal Result [facility] [address] [place] [address] * (ABNORMAL) Differential, auto (02/08/2025 1:47 PM CDT) Neutrophil abs 7.07(H) 1.50 - 6.50 K/cumm Imm gran abs 0.04 0.00 - 0.10 K/cumm [facility] Lymphocyte abs 3.12 0.80 - 3.30 K/cumm [facility] Monocyte abs 0.79 0.20 - 0.80 K/cumm [facility] Eosinophil abs 0.38 0.00 - 0.50 K/cumm [facility] Basophil abs 0.11(H) 0.00 - 0.10 K/cumm [facility] Neutrophil pct 61.4 % [facility] Comment: Interpretive Data Percent cell count reference ranges are not reported, since discordance with absolute values may lead to misinterpretation of CBC data. Current Interpretive Data was last revised on 2017. Imm gran pct 0.3 % [facility] Comment: Interpretive Data Percent cell count reference ranges are not reported, since discordance with absolute values may lead to misinterpretation of CBC data. Current Interpretive Data was last revised on 2017. Lymphocyte pct 27.1 % [facility] Comment: Interpretive Data Percent cell count reference ranges are not reported, since discordance with absolute values may lead to misinterpretation of CBC data. Current Interpretive Data was last revised on 2017. Monocyte pct 6.9 % [facility] Comment: Interpretive Data Percent cell count reference ranges are not reported, since discordance with absolute values may lead to misinterpretation of CBC data. Current Interpretive Data was last revised on 2017. Eosinophil pct 3.3 % [facility] Comment: Interpretive Data Percent cell count reference ranges are not reported, since discordance with absolute values may lead to misinterpretation of CBC data. Current Interpretive Data was last revised on 2017. Basophil pct 1.0 % [facility] Comment: Interpretive Data Percent cell count reference ranges are not reported, since discordance with absolute values may lead to misinterpretation of CBC data. Current Interpretive Data was last revised on 2017. Blood 02/08/2025 1:47 PM CDT 02/08/2025 9:49 PM CDT Onur Lai MD LAB BLOOD ORDERABLES Fi nal Result Performing Organization Address City/[facility]/ZIP Co de Phone Number [facility] [address] [place] [address] * Thyroid Function [place] (02/08/2025 1:47 PM CDT) Pathologist [facility] TSH 0.48 0.30 - 4.20 mcIUnit/mL Blood 02/08/2025 1:47 PM CDT 02/08/2025 6:43 PM CDT Onur Lai MD LAB BLOOD ORDERABLES Fi nal Result Performing Organization Address City/[facility] Co de Phone Number [facility] [address] [place] [address] * (ABNORMAL) CBC with auto differential (02/08/2025 1:47 PM CDT) [facility] WBC 11.51(H) 3.80 - 9.90 K/cumm Hgb 14.3 11.9 - 15.5 g/dL [facility] Hct 43.2 35.6 - 45.5 % [facility] Plt 507(H) 150 - 400 K/cumm [facility] MPV 9.1 9.1 - 12.3 fL [facility] RBC 4.49 3.90 - 5.20 M/cumm [facility] MCV 96.2 81.3 - 96.4 fL [facility] MCH 31.8 27.1 - 33.3 pg [facility] MCHC 33.1 32.3 - 35.7 g/dL [facility] RDW CV 14.6 11.1 - 14.9 % [facility] RDW SD 51.6(H) 35.7 - 48.1 fL [facility] NRBC abs 0.00 0.00 - 0.01 K/cumm [facility] Blood 02/08/2025 1:47 PM CDT 02/08/2025 9:49 PM CDT Onur Lai MD LAB BLOOD ORDERABLES Fi nal Result Performing Organization Address [facility] Phone Number [facility] [address] [facility] [place] [address] * (ABNORMAL) Hemoglobin A1c (02/08/2025 1:47 PM CDT) Hgb A1C 6.3(H) 4.0 - 5.6 % Estimated Average Glucose 134 mg/dL [facility] Comment: The ADA recommends reporting an estimated Average Glucose (eAG) with all Hemoglobin A1c results using the equation derived from a study of 507 normal and diabetic adults. Minority populations were underrepresented and children were not included. (Diabetes Care 31:6838-6749, 2008). The eAG is not equivalent to a fasting glucose. Blood 02/08/2025 1:47 PM CDT 02/08/2025 9:49 PM CDT Onur Lai MD LAB BLOOD ORDERABLES Fi nal Result Performing Organization Address [facility] de Phone Number [facility] [address] [facility] [place] [address] * (ABNORMAL) Lipid panel (02/08/2025 1:47 PM CDT) Cholesterol 179 30 - 199 mg/dL Comment: Interpretive Data Ages < or = 19 years Acceptable: <170 mg/dL Borderline high: 170-199 mg/dL High: >or= 200 mg/dL Ages > or = 20 years Desirable: <200 mg/dL Borderline high: 200-239 mg/dL High: >or= 240 mg/dL Literature References: 1. Expert Panel on Integrated Guidelines for Cardiovascular Health and Risk Reduction in Children and Adolescents. Pediatrics 2011;128:S213 2. NCEP Expert Panel. Circulation 2004;110:227 Current Interpretive Data was last revised on 2018. Triglycerides 193(H) <=149 mg/dL [facility] Comment: Interpretive Data Ages < or = 9 years Acceptable: <75 mg/dL Borderline high: 75-99 mg/dL High: >or= 100 mg/dL Ages 10 to 20 years Acceptable: <90 mg/dL Borderline high: 90-129 mg/dL High: >or= 130 mg/dL Ages > or = 20 years Desirable: <150 mg/dL Borderline high: 150-199 mg/dL High: 200-499 mg/dL Very high: >or= 499 mg/dL Literature References: 1. Expert Panel on Integrated Guidelines for Cardiovascular Health and Risk Reduction in Children and Adolescents. Pediatrics 2011;128:S213 2. NCEP Expert Panel. Circulation 2004;110:227 Current Interpretive Data was last revised on 2018. HDL 55 >=40 mg/dL [facility] Comment: Interpretive Data Ages < or = 19 years Acceptable: >45 mg/dL Borderline low: 40-45 mg/dL Low: <40 mg/dL Ages > or = 20 years Desirable: >or= 60 mg/dL Low: <40 mg/dL Literature References: 1. Expert Panel on Integrated Guidelines for Cardiovascular Health and Risk Reduction in Children and Adolescents. Pediatrics 2011;128:S213 2. NCEP Expert Panel. Circulation 2004;110:227 Current Interpretive Data was last revised on 2018. LDL, calculated 91 <=129 mg/dL [facility] Comment: Interpretive Data Ages < or = 19 years Acceptable: <110 mg/dL Borderline high: 110-129 mg/dL High: >or= 130 mg/dL Ages > or = 20 years Optimal: <100 mg/dL Near optimal: 100-129 mg/dL Borderline high: 130-159 mg/dL High: >160 mg/dL Calculated using the Buck LDL-C estimating equation. This equation was implemented on 2024. Prior to this date LDL-C was estimated using the Friedewald equation. Literature References: 1. Expert Panel on Integrated Guidelines for Cardiovascular Health and Risk Reduction in Children and Adolescents. Pediatrics 2011;128:S213 2. NCEP Expert Panel. Circulation 2004;110:227 3. Buck Bhakta et al. AWAIS Cardiol. 2020 May 1;5(5):540-548. doi: 10.1001/jamacardio.2020.0013 Current Interpretive Data was last revised on 2024. Non-HDL Cholesterol 124 mg/dL [facility] Comment: Interpretive Data Ages < or = 19 years Acceptable: <120 mg/dL Borderline high: 120-144 mg/dL High: >145 mg/dL Ages > or = 20 years When triglycerides are >200 mg/dL, Non-HDL cholesterol is a secondary target of therapy with treatment goals that are 30 mg/dL greater than the LDL cholesterol target. Literature References: 1. Expert Panel on Integrated Guidelines for Cardiovascular Health and Risk Reduction in Children and Adolescents. Pediatrics 2011;128:S213 2. NCEP Expert Panel. Circulation 2004;110:227 Current Interpretive Data was last revised on 2018. Chol/HDL ratio 3 [facility] Blood 02/08/2025 1:47 PM CDT 02/08/2025 6:43 PM CDT us Onur Lai MD LAB BLOOD ORDERABLES Fi nal Result [facility] [address] Department [place] [address] * Comprehensive metabolic panel (02/08/2025 1:47 PM CDT) Sodium 135 135 - 145 mmol/L Potassium, pl 4.7 3.3 - 4.9 mmol/L [facility] Chloride 98 97 - 110 mmol/L [facility] CO2 27 22 - 32 mmol/L [facility] Anion gap 10 2 - 15 mmol/L [facility] BUN 20 6 - 25 mg/dL [facility] Creatinine 0.69 0.60 - 1.10 mg/dL [facility] Glucose 101 70 - 199 mg/dL [facility] Comment: Interpretive Data Fasting glucose >/= 126 mg/dl is diagnostic for diabetes. Fasting is defined as no caloric intake for at least 8 hours. Fasting glucose between 100 mg/dl to 125 mg/dl is diagnostic of prediabetes. In a patient with classic symptoms of hyperglycemia or hyperglycemic crisis, a random glucose >/= 200 mg/dl is diagnostic for diabetes. In the absence of unequivocal hyperglycemia, results should be confirmed by repeat testing. The classification and Diagnosis of Diabetes Diabetes Care 2021; 46: S19-S40. Current interpretive data was last revised 2022. Calcium 10.3 8.5 - 10.3 mg/dL [facility] Bilirubin, total 0.3 0.1 - 1.2 mg/dL [facility] Protein, pl 7.5 6.5 - 8.5 g/dL [facility] Albumin 4.6 3.5 - 5.0 g/dL [facility] Alk phos 108 40 - 130 Units/L [facility] ALT 24 7 - 45 Units/L [facility] AST 28 10 - 45 Units/L [facility] Blood 02/08/2025 1:47 PM CDT 02/08/2025 6:43 PM CDT Onur Lai MD LAB BLOOD ORDERABLES nal Result [facility] [address] [place] [address] * [place] I&D HEMATOMA SEROMA/FLUID COLLECTION (02/08/2025 1:00 PM CDT) Narrative Onur Lai MD - 02/08/2025 1:00 PM CDT Onur Lai MD 02/21/2025 4:40 PM Incision and Drainage Performed by: Onur Lai MD Authorized by: Onur Lai MD Consent Given by: Patient Site marked: the procedure site was marked Verbal consent obtained: Yes Type: Seroma (foreign body) Body area: Lower extremity Location details: Right leg Anesthesia: Local infiltration Anesthetic total (ml): 3 Medications: 3 mL lidocaine-EPINEPHrine 1 %-1:100,000 Scalpel size: 11 Incision type: Single straight Incision depth: Dermal Complexity: Simple Drainage: Bloody Drainage amount: Scant Wound treatment: Wound left open Procedure termination: Procedure terminated at provider discretion Comments: Attempted to remove palpable foreign body in the dermis of the right lateral thigh. Although site was marked, was unable to identify and free the foreign body after incision made. Rather than expand the incision superiorly, decided to stop the procedure, close the incision with Steri-Strips, and recommend follow-up with either General surgery or Dermatology for re-attempt at removal. Onur Lai MD IN CLINIC/BEDSIDE ORDER MILLIE Final Result * Albumin Creatinine Ratio, Urine (10/07/2024 11:03 AM CDT) Albumin Ur <12.0 mg/L Comment: Interpretive Data No reference range established. Current interpretive data was last revised 2018. Creatinine Ur 32.6 mg/dL [facility] Comment: Interpretive Data No reference range established. Current interpretive data was last revised 2018. Albumin Creatinine Ratio, Ur See Comment 1 - 29 mg/g [facility] Comment:Unable to calculate Urine 10/07/2024 11:0 3 AM CDT 10/07/2024 11:03 AM CDT Onur Lai MD LAB URINE ORDERABLES Fi nal Result [facility] [address] [place] [address] * Screening Mammogram Bilateral W Bert (05/27/2024 1:24 PM MANAGER SPANISH) Anatomical Region Laterality Modality Breast Bilateral Mammography Impressions 05/27/2024 1:37 PM MANAGER SPANISH BI-RADS ATLAS category (overall): 1 - Negative There is no mammographic evidence of malignancy. A 1 year screening mammogram is recommended. The patient has been or will be contacted. We recommend annual screening mammography for women at average risk of breast cancer beginning at age 40, based on guidelines of the [employer] (ACR Practice Parameter for the Performance of Screening and Diagnostic Mammography) and [employer]. For women with and elevated risk of breast cancer, please refer to the ACR Practice Parameter for specific screening recommendations. The patient will be entered into a reminder system with a target due date of 1 year for her next screening exam. Narrative 05/27/2024 1:37 PM MANAGER SPANISH Screening Mammogram Bilateral W Bert: 05/27/24 The [...] suspicious findings are seen within either breast. Self Screening Mammogram IMG MAMMO PROCEDURES Fi nal Result * DIABETES EYE EXAM (05/19/2024 8:33 AM MANAGER SPANISH) SCRIBED DIABETIC DILATED EYE EXAM Normal Historical Provider HEALTH MAINTENANCE Final Result * DEXA SCAN (02/13/2022) Scribed Deca Scan Abnormal Impressions Aamir Middleton MD - 02/13/2022 Low bone mass, lumbar spine T score -1.5, [facility]. Narrative Aamir Middleton MD - 02/13/2022 See scanned report. Aamir Middleton MD HEALTH MAINTENANCE Final Resu lt * COLONOSCOPY (06/15/2015) Colonoscopy Normal J Luis Marques MD HEALTH MAINTENANCE Final Result * HEPATITIS C SCREENING (10/27/2012) HEP C Normal Comment:See scanned report. Result [facility] Historical Provider HEALTH MAINTENANCE Final Result from Last 3 Months or Most Recently Relevant to Health Maintenance Insurance [facility] PPO AETNA MEDICARE [facility] MEDICARE AETNA [facility] HMO Advance Directives For more information, please contact: [phone] Documents on File Type Date Recorded Patient Endoscopy Technican Expl anation Advance Directives and Living Will 03/20/2023 9:35 AM ADVANCE DIRECTIVE 09/12/2020 1:00 PM Power of Table Worker Packager-Medical Care Teams [employer] Relationship Specialty Start Date End Date Onur Lai MD [address] [place] [address] PCP - General Internal Medicine 10/07/24 Hilda Almonte MD [address] [facility] [address] Consulting Physician Obstetrics and Gynecology 01/06/13 Issa Valencia MD [address] [place] [address] Consulting Physician Urology 04/09/20 Rod Pablo MD [address] [place] [address] Consulting Physician Gastroenterology 05/21/20 Laron Casey MD [address] [place] [address] Consulting Physician Sleep Medicine 12/06/20 Landry Conklin MD [address] [place] [address] Consulting Physician Ophthalmology 10/30/21 Mamta Rondon MD [address] [place] [address] Consulting Physician Dermatology 02/12/23 Lizeth Hampton MD [address] [facility] [place] [address] Consulting Physician Urology 05/22/23
--- OUTSIDE RECORDS SUMMARY | 2025-02-27 14:04 | XMS_ITS | Encounter Summary ---
Author Organization [facility] Address [address] [place] [address] Phone Care Team Providers Care Tile Conduit Layer Name Role Phone Aamir Middleton MD Primary Care Provider [phone] Hilda Almonte MD Unavailable [phone] Cornelio Alfaro MD Unavailable [phone] Issa Valencia MD Unavailable [phone] Rod Pablo MD Unavailable [phone] Laron Casey MD Unavailable Landry Conklin MD Unavailable [phone] Mamta Rondon MD Unavailable [phone] Lizeth Hampton MD Unavailable [phone] Onur Lai MD Primary Care Provider Encounter Details Date Type Department Care Team (Late st Contact Info) Description 01/11/2020 Orders Only [facility] [address] [place] [address] Scanning, Provider Social History Tobacco [...] on file Legal Sex Female 6:48 AM SUPERVISORY EXAMINER Gender Identity Not on file Sexual Orientation Not on file documented as of this encounter Plan of Treatment Not on file documented as of this encounter Procedures Procedure Name Priority Date/Time Associated Diagnosis Comments SCAN - LABS 01/11/2020 documented in this encounter Results * SCAN - LABS (01/11/2020) us Provider Scanning Final Result documented in this encounter Visit Diagnoses Not on filedocumented in this encounter Additional Health Concerns Infection Onset Date Last Indicated Resolved Time Respiratory Infection (ANI), contact + droplet Comment:Automatically added due to negative COVID-19 result. 01/01/2020 01/01/2020 01/15/2020 3:0 6 AM CDT COVID: Suspected 10/02/2022 10/02/2022 10/03/2022 3:05 AM CDT documented as of this encounter Care Teams Tile Conduit Layer Relationship Specialty Start Date End Date Aamir Middleton MD [address] [place] [address] [place] [address] PCP - General 09/05/16 10/06/24 Onur Lai MD [address] [place] [address] PCP - General Internal Medicine 10/07/24 Hilda Almonte MD [address] [place] [address] Consulting Physician Obstetrics and Gynecology 01/06/13 Cornelio Alfaro MD [address] [place] [address] Consulting Physician Urology 01/28/20 08/24/23 Issa Valencia MD [address] [place] [address] Consulting Physician Urology 04/09/20 Rod Pablo MD [address] [place] [address] Consulting Physician Gastroenterology 05/21/20 Laron Casey MD [address] [place] [address] Consulting Physician Sleep Medicine 12/06/20 Landry Conklin MD [address] [place] [address] Consulting Physician Ophthalmology 10/30/21 Mamta Rondon MD [address] [place] [address] Consulting Physician Dermatology 02/12/23 Lizeth Hampton MD [address] [facility] [place] [address] Consulting Physician Urology 05/22/23 documented as of this encounter
== END 2025-02-27 13:44 | disposition home or self-care (01) ==
PROVIDERS: Visit Provider Surgery
DX: S80.859A Superficial foreign body, unspecified lower leg, initial encounter (principal); X58.XXXA Exposure to other specified factors, initial encounter
CPT/HCPCS: 73552